=== PATIENT | male | born 1945 | race African-American/Black ===

== ENCOUNTER 2016-10-01 07:59 | Emergency (ER) | payer MEDICARE, MEDICAID ==
[~2016-10-01] VITALS: Ht 172.7 cm; Wt 74.8 kg
[2016-10-01] MEDS ORDERED: PredniSONE 20mg tab ORAL ONE (08:15)
[2016-10-01] MEDS ORDERED: Albuterol ud Inhalation HHN ONE (08:15)
[2016-10-01] MEDS ORDERED: Ipratropium 0.02% Inh Soln 2.5ml UD HHN ONE (08:15)
[2016-10-01] MEDS ORDERED: Aspirin Baby 81mg ORAL ONE (08:15)
--- NOTE | 2016-10-01 08:17 | Emergency Room Report ---
History of Present Illness General Chief Complaint: Dyspnea/Respdistress Source: Patient Present Illness HPI This patient states that he has a history of COPD. He states that his symptoms. Alert a COPD exacerbation. The patient states that he woke up this morning and was feeling short of breath. He states that his symptoms are worse when with exertion. He states that he did take 2 of his home albuterol breathing treatments by nebulizer. He also takes Spiriva. He states that he went to the methadone clinic this morning and when he returned home he felt increasing shortness of breath. He denies recent illness. He denies cough or congestion. He denies fever chills. He denies nausea or vomiting. He states that he is occasionally gets some chest pain. He denies tobacco use. He does have a [id number] history. However, he stopped smoking in 2010. He does have a history of heroin abuse. He has no other complaints. Allergies: Coded Allergies: No Known Allergies (Unverified , 10/01/16) Patient History Past Medical History: see triage record, HTN, COPD, other - glaucoma Past Surgical History: other - Hip replacement Social History: Reports: alcohol use, drug use, Denies: smoking Reviewed Nursing Documentation: PMH: Agreed, PSxH: Agreed Nursing Documentation-PMH Hx Hypertension: Yes Hx COPD: Yes Review of Systems All Other Systems: negative except mentioned in HPI Physical Exam Vital Signs Date Time Temp Pulse Resp B/P Pulse Ox O2 Delivery O2 Flow Rate FiO2 10/01/16 07:53 88 24 142/76 98 Room Air Sp02 EP Interpretation: reviewed, normal General Appearance: no apparent distress, alert, GCS 15, non-toxic Head: normocephalic, atraumatic Eyes: bilateral eye PERRL, bilateral eye normal inspection ENT: hearing grossly normal, normal pharynx, no angioedema, normal voice Neck: full range of motion, supple/symm/no masses Respiratory: chest non-tender, lungs clear, normal breath sounds, no rhonchi, no respiratory distress, no retraction, no accessory muscle use, decreased breath sounds, speaking full sentences Cardiovascular #1: regular rate, rhythm, no edema Gastrointestinal: normal bowel sounds, non tender, soft, non-distended, no guarding, no rebound Rectal: deferred Musculoskeletal: back normal, gait/station normal, normal range of motion, non- tender Neurologic: alert, oriented x3, responsive, motor strength/tone normal, sensory intact, speech normal Psychiatric: judgement/insight normal, memory normal, mood/affect normal, no suicidal/homicidal ideation Skin: normal color, no rash, warm/dry, well hydrated Medical Decision Making Diagnostic Impression: Primary Impression: COPD exacerbation ER Course This patient has a clinical presentation consistent with COPD exacerbation. Patient has a history of COPD. The patient was given albuterol and Atrovent nebulizer treatments. The patient was also given prednisone orally. The patient had significant improvement in subjective shortness of breath. The patient was comfortable going home. The patient's laboratory workup to include CBC, CMP and cardiac enzymes were unremarkable. Chest x-ray was within normal limits. Given the length of symptoms and a negative workup in the resolution of symptoms with the respiratory treatment, at this time I do not suspect acute coronary syndrome. The patient states that he does need more albuterol for his nebulizer machine. The patient was given close return precautions and followup instructions. Labs Test 10/01/16 08:15 White Blood Count 12.0 K/UL (4.8-10.8) Red Blood Count 5.52 M/UL (4.70-6.10) Hemoglobin 14.6 G/DL (14.2-18.0) Hematocrit 45.1 % (42.0-52.0) Mean Corpuscular Volume 82 FL (80-99) Mean Corpuscular Hemoglobin 26.4 PG (27.0-31.0) Mean Corpuscular Hemoglobin Concent 32.4 G/DL (32.0-36.0) Red Cell Distribution Width 13.6 % (11.6-14.8) Platelet Count 230 K/UL (150-450) Mean Platelet Volume 7.8 FL (6.5-10.1) Neutrophils (%) (Auto) 78.8 % (45.0-75.0) Lymphocytes (%) (Auto) 11.5 % (20.0-45.0) Monocytes (%) (Auto) 8.1 % (1.0-10.0) Eosinophils (%) (Auto) 0.7 % (0.0-3.0) Basophils (%) (Auto) 0.9 % (0.0-2.0) Prothrombin Time 10.9 SEC (9.30-11.50) Prothromb Time International Ratio 1.0 (0.9-1.1) Activated Partial Thromboplast Time 27 SEC (23-33) Urine Color Pale yellow Urine Appearance Clear Urine pH 7 (4.5-8.0) Urine Specific [place] 1.005 (1.005-1.035) Urine Protein Negative (NEGATIVE) Urine Glucose (UA) Negative (NEGATIVE) Urine Ketones Negative (NEGATIVE) Urine Occult Blood Negative (NEGATIVE) Urine Nitrite Negative (NEGATIVE) Urine Bilirubin Negative (NEGATIVE) Urine Urobilinogen Normal MG/DL (0.0-1.0) Urine Leukocyte Esterase Negative (NEGATIVE) Sodium Level 134 mEQ/L (135-145) Potassium Level 4.1 mEQ/L (3.4-4.9) Chloride Level 94 mEQ/L (98-107) Carbon Dioxide Level 29 mEQ/L (20-30) Anion Gap 11 (5-15) Blood Urea Nitrogen 9 mg/dL (7-23) Creatinine 0.8 mg/dL (0.7-1.2) Estimat Glomerular Filtration Rate > 60 mL/min (>60) Glucose Level 127 mg/dL (74-106) Calcium Level 9.4 mg/dL (8.6-10.2) Total Bilirubin 0.5 mg/dL (0.0-1.2) Aspartate Amino Transf (AST/SGOT) 17 U/L (5-40) Alanine Aminotransferase (ALT/SGPT) 9 U/L (3-41) Alkaline Phosphatase 68 U/L (40-129) Total Creatine Kinase 96 U/L (38-174) Creatine Kinase MB 1.5 ng/mL (< 6.7) Creatine Kinase MB Relative Index 1.5 Troponin I < 0.30 ng/mL (<=0.30) Pro-B-Type Natriuretic Peptide 65 pg/mL (0-125) Total Protein 7.4 g/dL (6.6-8.7) Albumin 3.9 g/dL (3.5-5.2) Globulin 3.5 g/dL Albumin/Globulin Ratio 1.1 (1.0-2.7) Urine Opiates Screen Positive (NEGATIVE) Urine Barbiturates Screen Negative (NEGATIVE) Phencyclidine (PCP) Screen Negative (NEGATIVE) Urine Amphetamines Screen Negative (NEGATIVE) Urine Benzodiazepines Screen Negative (NEGATIVE) Urine Cocaine Screen Negative (NEGATIVE) Urine Marijuana (THC) Screen Negative (NEGATIVE) EKG Diagnostic Results Rate: normal Rhythm: NSR ST Segments: no acute changes Other Impression Q waves in V1, V2 Rhythm Strip Diag. Results EP Interpretation: yes Rate: 70's Rhythm: NSR, no PVC's, no ectopy Chest X-Ray Diagnostic Results EP Interpretation: Yes Findings: no consolidation, no effusion, no pneumothorax, no acute cardiopulmonary disease Number of Views: 1 Last Vital Signs Date Time Temp Pulse Resp B/P Pulse Ox O2 Delivery O2 Flow Rate FiO2 10/01/16 07:53 88 24 142/76 98 Room Air Status: improved Disposition: HOME, SELF-CARE Condition: Improved Scripts Albuterol Sulfate* (ALBUTEROL SULFATE HHN*) 2.5 Mg/3 Ml Vial.neb 2.5 MG HHN Q4H Y for Shortness of Breath, #25 VIAL Prov: SAMPSON THOMPSON D.O. 10/01/16 Prednisone* (PREDNISONE*) 20 Mg Tablet 60 MG ORAL DAILY, #12 TAB Prov: SAMPSON THOMPSON D.O. 10/01/16 Patient Instructions: Chronic Obstructive Pulmonary Disease Exacerbation SAMPSON THOMPSON D.O. Oct 01, 2016 08:17
[2016-10-01 08:26] VITALS: BP 131/70
[2016-10-01 08:36] LABS: APPEARANCE,URINE CLEAR; KETONES,URINE NEGATIVE (NEGATIVE); LEUKOCYTE ESTERASE ,URINE NEGATIVE (NEGATIVE); NITRITE,URINE NEGATIVE (NEGATIVE); PH,URINE 7 (4.5-8.0); PROTEIN,URINE NEGATIVE (NEGATIVE); UROBILINOGEN,URINE NORMAL MG/DL (0.0-1.0)
[2016-10-01 08:41] LABS: BASOPHILS % (AUTO) 0.9 % (0.0-2.0); EOSINOPHILS % (AUTO) 0.7 % (0.0-3.0); LYMPHOCYTES % (AUTO) 11.5 % (20.0-45.0); MEAN CORPUSCULAR HEMOGLOBIN 26.4 PG (27.0-31.0); MEAN CORPUSCULAR HGB CONC 32.4 G/DL (32.0-36.0); MEAN CORPUSCULAR VOLUME 82 FL (80-99); MEAN PLATELET VOLUME 7.8 FL (6.5-10.1); MONOCYTES % (AUTO) 8.1 % (1.0-10.0); NEUTROPHILS % (AUTO) 78.8 % (45.0-75.0); PLATELET COUNT 230 K/UL (150-450); RED BLOOD COUNT 5.52 M/UL (4.70-6.10); RED CELL DISTRIBUTION WIDTH 13.6 % (11.6-14.8)
[2016-10-01 08:49] LABS: PROTHROMBIN TIME 10.9 SEC (9.30-11.50)
[2016-10-01 08:50] LABS: ALANINE AMINOTRANSFERASE 9 U/L (3-41); ALBUMIN/GLOBULIN RATIO 1.1 (1.0-2.7); ANION GAP 11 (5-15); ASPARTATE AMINO TRANSFERASE 17 U/L (5-40); CALCIUM 9.4 mg/dL (8.6-10.2); CARBON DIOXIDE 29 mEQ/L (20-30); CHLORIDE 94 mEQ/L (98-107); CREATININE 0.8 mg/dL (0.7-1.2); GLOMERULAR FILTRATION RATE > 60 mL/min (>60); HEMOLYSIS 6; POTASSIUM 4.1 mEQ/L (3.4-4.9); SODIUM 134 mEQ/L (135-145); TOTAL PROTEIN 7.4 g/dL (6.6-8.7); TROPONIN I < 0.30 ng/mL (<=0.30)
--- NOTE | 2016-10-01 08:55 | Diagnostic Imaging Report ---
Indication: SOB Technique: One view of the chest Comparison: 05/02/2007 Findings: Lungs and pleural spaces are clear. Heart size is normal. Aorta is tortuous. No significant change Impression: No acute process
[2016-10-01 09:00] LABS: CKMB 1.5 ng/mL (< 6.7)
[2016-10-01] MEDS ORDERED: ALBUTEROL2.5 MG/3 M HHN (10:23)
[2016-10-01] MEDS ORDERED: PREDNISONE20 MG ORAL (10:23)
[2016-10-01 11:05] VITALS: BP 133/78
[2016-10-01 13:06] VITALS: BP 134/71
== END 2016-10-01 13:12 | disposition home or self-care (01) ==
LOC: EDBD 07:59 → EMR 08:10
DX: J44.1 Chronic obstructive pulmonary disease with (acute) exacerbation (principal); I10 Essential (primary) hypertension; F10.20 Alcohol dependence, uncomplicated; F19.90 Other psychoactive substance use, unspecified, uncomplicated; Z87.891 Personal history of nicotine dependence; Z96.649 Presence of unspecified artificial hip joint
CPT/HCPCS: 36415; 71010; 80053; 80300; 81003; 82550; 82553; 83880; 84484; 85025; 85610; 85730; 93005; 94640; 94664; 99284

== ENCOUNTER 2017-06-05 13:46 | Inpatient (IN) | payer MEDICAID, MEDICARE ==
[~2017-06-05] VITALS: Ht 172.7 cm; Wt 79.4 kg
[~2017-06-05 13:46] MED LIST: ALBUTEROL2.5 MG/3 M HHN; PREDNISONE20 MG ORAL
--- NOTE | 2017-06-05 13:50 | Emergency Room Report ---
History of Present Illness Present Illness HPI Patient is a 71-year-old male brought in by EMS after increased generalized weakness. Patient did have alteration of his mental status. Patient was noted a prior history of COPD as well as drug abuse. He was noted to be on home oxygen. 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 Patient was noted to have a known medications and allergies.History is obtained from EMS and patient's sister. Reportedly the patient had been sick for several days with increased difficulty breathing. 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 ENT: dry mucus membranes Neck: full range of motion, supple Respiratory: no retraction, no accessory muscle use, wheezing Cardiovascular #1: tachycardia Gastrointestinal: distended, tenderness - mild Musculoskeletal: normal inspection, back normal Neurologic: normal inspection, alert, oriented x3, responsive, speech normal, motor weakness Skin: normal inspection, normal color, no rash, warm/dry Medical Decision Making Diagnostic Impression: Primary Impression: Episode of generalized weakness Additional Impressions: COPD with exacerbation Hypercarbia Dehydration ER Course Patient presented for altered mental status. Differential diagnosis included but was not limited to ischemic stroke, subarachnoid hemorrhage, hypoglycemia, spinal cord injury, neurodegenerative disorder, urinary tract infection, hypoxemia.Patient was noted to have some improvement in his mental status spontaneously. The patient was given prednisone as well as breathing treatments with some improvement. ABG was noted to have some CO2 retention consistent with COPD exacerbation.Patient started on IV fluids. CT the head read by radiology showed no acute hemorrhage or CVA. A CT abdomen pelvis was performed due to patient's abdominal distention. Dr. Kc was contacted for inpatient management due to complexity of medical condition. Labs Test 06/05/17 13:51 06/05/17 15:24 Arterial Blood pH 7.294 (7.350-7.450) Arterial Blood Partial Pressure CO2 59.9 mmHg (35.0-45.0) Arterial Blood Partial Pressure O2 76.7 mmHg (75.0-100.0) Arterial Blood HCO3 28.4 mmol/L (22.0-26.0) Arterial Blood Oxygen Saturation 93.8 % (92.0-98.0) Arterial Blood Base Excess 0.5 Christopher Test Positive White Blood Count 14.1 K/UL (4.8-10.8) Red Blood Count 5.47 M/UL (4.70-6.10) Hemoglobin 14.8 G/DL (14.2-18.0) Hematocrit 44.2 % (42.0-52.0) Mean Corpuscular Volume 81 FL (80-99) Mean Corpuscular Hemoglobin 27.1 PG (27.0-31.0) Mean Corpuscular Hemoglobin Concent 33.5 G/DL (32.0-36.0) Red Cell Distribution Width 13.4 % (11.6-14.8) Platelet Count 326 K/UL (150-450) Mean Platelet Volume 6.9 FL (6.5-10.1) Neutrophils (%) (Auto) 75.1 % (45.0-75.0) Lymphocytes (%) (Auto) 12.0 % (20.0-45.0) Monocytes (%) (Auto) 7.8 % (1.0-10.0) Eosinophils (%) (Auto) 3.7 % (0.0-3.0) Basophils (%) (Auto) 1.4 % (0.0-2.0) Prothrombin Time 10.9 SEC (9.30-11.50) Prothromb Time International Ratio 1.0 (0.9-1.1) Activated Partial Thromboplast Time 27 SEC (23-33) Sodium Level 137 MMOL/L (136-145) Potassium Level 4.8 MMOL/L (3.5-5.1) Chloride Level 96 MMOL/L (98-107) Carbon Dioxide Level 33 MMOL/L (21-32) Anion Gap 8 mmol/L (5-15) Blood Urea Nitrogen 6 mg/dL (7-18) Creatinine 1.3 MG/DL (0.55-1.30) Estimat Glomerular Filtration Rate > 60 mL/min (>60) Glucose Level 113 MG/DL (74-106) Lactic Acid Level 1.90 mmol/L (0.66-2.22) Calcium Level 9.4 MG/DL (8.5-10.1) Phosphorus Level 4.2 MG/DL (2.5-4.9) Magnesium Level 2.0 MG/DL (1.8-2.4) Total Bilirubin 0.3 MG/DL (0.2-1.0) Aspartate Amino Transf (AST/SGOT) 23 U/L (15-37) Alanine Aminotransferase (ALT/SGPT) 20 U/L (12-78) Alkaline Phosphatase 75 U/L (46-116) Total Creatine Kinase 182 U/L (26-308) Creatine Kinase MB 1.5 NG/ML (0.0-3.6) Creatine Kinase MB Relative Index 0.8 Troponin I 0.000 ng/mL (0.000-0.056) Total Protein 8.7 G/DL (6.4-8.2) Albumin 4.0 G/DL (3.4-5.0) Globulin 4.7 g/dL Albumin/Globulin Ratio 0.9 (1.0-2.7) EKG Diagnostic Results Rate: tachycardiac - 122 Rhythm: NSR ST Segments: no acute changes CT/MRI/US Diagnostic Results CT/MRI/US Diagnostic Results : Imaging Test Ordered: Head Impression atrophic changes, no acute intracranial process. Disposition: HOME, SELF-CARE Condition: Stable Abraham Trimble Jun 05, 2017 13:50
[2017-06-05 14:31] VITALS: BP 119/88
[2017-06-05] MEDS ORDERED: Albuterol/Ipratropium 3ml neb HHN ONE (15:30)
[2017-06-05 15:37] LABS: BASOPHILS % (AUTO) 1.4 % (0.0-2.0); EOSINOPHILS % (AUTO) 3.7 % (0.0-3.0); HEMATOCRIT 44.2 % (42.0-52.0); HEMOGLOBIN 14.8 G/DL (14.2-18.0); MEAN CORPUSCULAR VOLUME 81 FL (80-99); MONOCYTES % (AUTO) 7.8 % (1.0-10.0); NEUTROPHILS % (AUTO) 75.1 % (45.0-75.0); PLATELET COUNT 326 K/UL (150-450); RED BLOOD COUNT 5.47 M/UL (4.70-6.10); RED CELL DISTRIBUTION WIDTH 13.4 % (11.6-14.8); WHITE BLOOD COUNT 14.1 K/UL (4.8-10.8)
[2017-06-05 15:48] VITALS: BP 149/128
[2017-06-05 16:04] LABS: ANION GAP 8 mmol/L (5-15); BLOOD UREA NITROGEN 6 mg/dL (7-18); CALCIUM 9.4 MG/DL (8.5-10.1); CARBON DIOXIDE 33 MMOL/L (21-32); CHLORIDE 96 MMOL/L (98-107); CREATININE 1.3 MG/DL (0.55-1.30); POTASSIUM 4.8 MMOL/L (3.5-5.1); SODIUM 137 MMOL/L (136-145)
[2017-06-05 16:17] LABS: ALANINE AMINOTRANSFERASE 20 U/L (12-78); ALBUMIN/GLOBULIN RATIO 0.9 (1.0-2.7); ALKALINE PHOSPHATASE 75 U/L (46-116); ASPARTATE AMINO TRANSFERASE 23 U/L (15-37); BILIRUBIN,TOTAL 0.3 MG/DL (0.2-1.0); CKMB 1.5 NG/ML (0.0-3.6); CREATINE KINASE 182 U/L (26-308); PHOSPHORUS 4.2 MG/DL (2.5-4.9)
[2017-06-05] MEDS ORDERED: ASPIRIN81 MG ORAL (16:33)
[2017-06-05] MEDS ORDERED: LISINOPRIL5 MG ORAL (16:33)
[2017-06-05] MEDS ORDERED: HYDROCHLOROTH12.5 M2 ORAL (16:33)
[2017-06-05 17:33] VITALS: BP 122/85
[2017-06-05] MEDS ORDERED: METHADONE HCL10 MG PO (17:34)
[2017-06-05] MEDS ORDERED: LATANOPROST1 GM MC (17:37)
[2017-06-05] MEDS ORDERED: SPIRIVA18 MCG INH (17:37)
[2017-06-05] MEDS ORDERED: SALMETEROL INH (17:37)
[2017-06-05] MEDS ORDERED: LATANOPROST2.5 ML BOTH EYES (17:58)
[2017-06-05] MEDS ORDERED: MULTIVITAMINS1 EAC2 ORAL (18:00)
[2017-06-05 18:15] VITALS: BP 124/80
[2017-06-05] MEDS ORDERED: Nitroglycerin Subl 0.4mg tab SL PRN (20:45)
[2017-06-05] MEDS ORDERED: Ketorolac 30mg Inj IV PRN (20:45)
[2017-06-05] MEDS ORDERED: Morphine Sulfate 2mg/ml Inj IVP PRN (20:45)
[2017-06-05] MEDS ORDERED: Albuterol/Ipratropium 3ml neb HHN PRN (20:45)
[2017-06-05] MEDS ORDERED: LORazepam Inj 2mg/ml 1ml IV PRN (20:45)
[2017-06-05] MEDS ORDERED: Promethazine/Codeine 5ml UD ORAL PRN (20:45)
[2017-06-05] MEDS: Piperacillin/Tazobactam 3.375 GM in NS 55 ML IVPB SCH (22:29)
[2017-06-05] MEDS: Theophylline ER 100mg ORAL SCH (22:29)
[2017-06-05] MEDS: Heparin 5000 units/ml inj SUBQ SCH (22:31)
[2017-06-06] VITALS (8 sets, daily range): BP systolic 102–139; BP diastolic 70–93
[2017-06-06] MEDS: Solu-MEDROL 125mg Inj IV SCH ×4 (06:00→17:31)
[2017-06-06] MEDS: Piperacillin/Tazobactam 3.375 GM in NS 55 ML IVPB SCH ×3 (06:33→21:30)
[2017-06-06] MEDS ORDERED: Lisinopril 2.5mg tab ORAL SCH (09:00)
--- NOTE | 2017-06-06 09:06 | Diagnostic Imaging Report ---
Indication: Abdominal pain Technique: Continuous helical transaxial imaging of the abdomen and pelvis was obtained from the lung bases to the pubic symphysis during intravenous contrast administration. Coronal 2-D reformats were also obtained. Study obtained in a Siemens sensation [address] Automatic Exposure Control was utilized. Total Dose length Product (DLP): 576.[address] Dose Index Volume (CTDIvol): 12.74 mGy Comparison: 05/02/2007 Findings: Question nodularity of the liver surface. The spleen is also slightly prominent. Pancreas gallbladder, adrenal glands and kidneys appear unremarkable. Moderate arterial calcifications are present. There is a right total hip arthroplasty noted. Degenerative changes of the lumbar spine are present. The appendix is normal. No free fluid or free air identified. The urinary bladder is unremarkable. There is narrowing of intervertebral discs and accompanying endplate osteophyte formation. Hypertrophied facet joints also demonstrated.. IMPRESSION: Nodularity of the liver surface. Chronic liver disease/cirrhosis suspected. Please correlate clinically. Prominent spleen. Degenerative changes of the spine Right total hip replacement Normal appendix Retroaortic left renal vein. A normal variant. [facility] has communicated the preliminary results to the Emergency Department. Their findings are largely concordant with this report. The CT scanner at [facility] is accredited by the [employer] and the scans are performed using dose optimization techniques as appropriate to a performed exam including Automatic Exposure control.
[2017-06-06] MEDS: Theophylline ER 100mg ORAL SCH ×2 (09:10→21:27)
[2017-06-06] MEDS: Heparin 5000 units/ml inj SUBQ SCH ×2 (09:11→21:29)
--- NOTE | 2017-06-06 09:45 | Diagnostic Imaging Report ---
Indication: Altered mental status Technique: Contiguous 5 mm thick transaxial imaging of the head obtained in a Siemens Sensation [address] scanner. Soft tissue and bone windows generated. Automatic Exposure Control was utilized. Total Dose length Product (DLP): [address] Dose Index Volume (CTDIvol): 0.15, 70.38 mGy Comparison: none Findings: There is mild prominence of the ventricles, basal cisterns, and cerebral sulci consistent with atrophy. Mild, nonspecific, white matter hypoattenuation is noted throughout the brain consistent with chronic small vessel disease. There is no midline shift, edema, acute hemorrhage, mass effect, or abnormal extra-axial fluid collections. Bones and extra osseous soft tissues are unremarkable. Impression: No acute intracranial bleed, mass effect or edema. Mild atrophy of the brain. Nonspecific white matter hypoattenuation probably due to chronic small vessel disease. [facility] has communicated the preliminary results to the Emergency Department. Their findings are largely concordant with this report. The CT scanner at [facility] is accredited by the [employer] and the scans are performed using dose optimization techniques as appropriate to a performed exam including Automatic Exposure control.
[2017-06-06] MEDS ORDERED: Tubing IV Secondary IV ONE (10:03)
--- NOTE | 2017-06-06 10:51 | Diagnostic Imaging Report ---
Indication: Dyspnea Comparison: 10/01/2016 A single view chest radiograph was obtained. Findings: Basilar lucencies noted. Lungs are slightly hyperexpanded. No infiltrate seen. Heart size is normal. IMPRESSION: COPD
--- NOTE | 2017-06-06 11:28 | History and Physical ---
History of Present Illness General Date patient seen: Jun 06, 2017 Reason for Hospitalization: Generalized Weakness Present Illness HPI 71-year-old male on Methadone, with hx of emphysema, on home oxygen.brought in by EMS after increased generalized weakness. Patient did have alteration of his mental status. Reportedly the patient had been sick for several days with increased difficulty breathing. Pt is admitted to telemetry for further evaluation. Allergies: Coded Allergies: No Known Allergies (Unverified , 10/01/16) Medication History Scheduled Aspirin* (Aspirin*), 81 MG ORAL DAILY, (Reported) Hydrochlorothiazide* (Hydrochlorothiazide*), 12.5 MG ORAL DAILY, (Reported) Latanoprost* (Xalatan*), 2 DROP BOTH EYES BEDTIME, (Reported) Lisinopril (Lisinopril*), 5 MG ORAL DAILY, (Reported) Methadone Hcl* (Methadone*), 80 MG PO DAILY, (Reported) Multivitamins* (Multivitamins*), 1 TAB ORAL DAILY, (Reported) Salmeterol Xinafoate (Serevent Diskus), 2 PUFFS INH NEEDED, (Reported) Tiotropium [place]* (Spiriva*), 1 PUFF INH DAILY, (Reported) Scheduled PRN Albuterol Sulfate* (Albuterol Sulfate Hhn*), 2.5 MG HHN Q4H PRN for Shortness of Breath Discontinued Medications Latanoprost (Latanoprost), 1 GM MC DAILY, (Reported) Discontinued Reason: Prescription changed Prednisone* (Prednisone*), 60 MG ORAL DAILY Discontinued Reason: Pt had allergic rxn Patient History Healthcare decision maker N Resuscitation status Full Code Advanced Directive on File No Past Medical/Surgical History Past Medical/Surgical History: (1) COPD (chronic obstructive pulmonary disease) Review of Systems Constitutional: Reports: no symptoms Physical Exam General Appearance: WD/WN Lines, tubes and drains: peripheral HEENT: normocephalic, atraumatic Neck: non-tender, supple Respiratory/Chest: chest wall non-tender, normal breath sounds, no respiratory distress Breasts: no masses Cardiovascular/Chest: normal peripheral pulses Abdomen: normal bowel sounds Genitourinary/Rectal: normal genital exam Extremities: normal range of motion, non-tender Skin Exam: cyanotic Neurologic: director talent management II-XII grossly normal Lymphatic: anterior cervical Last 24 Hour Vital Signs Date Time Temp Pulse Resp B/P (MAP) Pulse Ox O2 Delivery O2 Flow Rate FiO2 06/06/17 09:23 98 22 99 Nasal Cannula 2.0 28 06/06/17 09:14 101 24 98 Nasal Cannula 2.0 28 06/06/17 09:09 125/72 06/06/17 08:00 106 06/06/17 08:00 97.7 101 20 125/72 95 Nasal Cannula 2.0 06/06/17 06:35 98 20 96 Nasal Cannula 2.0 28 06/06/17 06:26 96 18 97 Nasal Cannula 2.0 28 06/06/17 06:26 Nasal Cannula 2.0 28 06/06/17 06:26 97 Nasal Cannula 2.0 28 06/06/17 04:00 101 06/06/17 04:00 98.2 101 14 124/83 100 Nasal Cannula 2.0 06/06/17 00:00 103 06/06/17 00:00 98.2 101 18 102/72 98 Nasal Cannula 2.0 06/05/17 23:33 94 Nasal Cannula 2.0 28 06/05/17 23:33 Nasal Cannula 2.0 28 06/05/17 23:31 108 20 95 Nasal Cannula 2.0 28 06/05/17 23:30 104 20 93 Nasal Cannula 2.0 28 06/05/17 20:00 107 06/05/17 18:15 97.2 116 16 124/80 95 Nasal Cannula 2.0 06/05/17 17:33 98.4 116 14 122/85 100 Nasal Cannula 2.0 06/05/17 15:54 125 14 100 Nasal Cannula 2.0 28 06/05/17 15:49 28 06/05/17 15:48 98.6 119 11 149/128 100 Simple Mask 2.0 28 06/05/17 15:43 121 11 98 Nasal Cannula 2.0 28 06/05/17 15:41 121 14 Nasal Cannula 2.0 28 06/05/17 14:31 98.6 112 12 119/88 99 Room Air 06/05/17 13:47 98.6 114 16 109/75 99 Room Air Intake and Output 06/05/17 06/06/17 19:00 07:00 Intake Total 300 ml Output Total 200 ml 400 ml Balance -200 ml -100 ml Intake Oral 300 ml Output Urine Total 200 ml 400 ml Laboratory Tests Test 06/05/17 13:51 06/05/17 15:24 Arterial Blood pH 7.294 (7.350-7.450) Arterial Blood Partial Pressure CO2 59.9 mmHg (35.0-45.0) *H Arterial Blood Partial Pressure O2 76.7 mmHg (75.0-100.0) Arterial Blood HCO3 28.4 mmol/L (22.0-26.0) H Arterial Blood Oxygen Saturation 93.8 % (92.0-98.0) Arterial Blood Base Excess 0.5 Christopher Test Positive White Blood Count 14.1 K/UL (4.8-10.8) H Red Blood Count 5.47 M/UL (4.70-6.10) Hemoglobin 14.8 G/DL (14.2-18.0) Hematocrit 44.2 % (42.0-52.0) Mean Corpuscular Volume 81 FL (80-99) Mean Corpuscular Hemoglobin 27.1 PG (27.0-31.0) Mean Corpuscular Hemoglobin Concent 33.5 G/DL (32.0-36.0) Red Cell Distribution Width 13.4 % (11.6-14.8) Platelet Count 326 K/UL (150-450) Mean Platelet Volume 6.9 FL (6.5-10.1) Neutrophils (%) (Auto) 75.1 % (45.0-75.0) H Lymphocytes (%) (Auto) 12.0 % (20.0-45.0) L Monocytes (%) (Auto) 7.8 % (1.0-10.0) Eosinophils (%) (Auto) 3.7 % (0.0-3.0) H Basophils (%) (Auto) 1.4 % (0.0-2.0) Prothrombin Time 10.9 SEC (9.30-11.50) Prothromb Time International Ratio 1.0 (0.9-1.1) Activated Partial Thromboplast Time 27 SEC (23-33) Sodium Level 137 MMOL/L (136-145) Potassium Level 4.8 MMOL/L (3.5-5.1) Chloride Level 96 MMOL/L (98-107) L Carbon Dioxide Level 33 MMOL/L (21-32) H Anion Gap 8 mmol/L (5-15) Blood Urea Nitrogen 6 mg/dL (7-18) L Creatinine 1.3 MG/DL (0.55-1.30) Estimat Glomerular Filtration Rate > 60 mL/min (>60) Glucose Level 113 MG/DL (74-106) H Lactic Acid Level 1.90 mmol/L (0.66-2.22) Calcium Level 9.4 MG/DL (8.5-10.1) Phosphorus Level 4.2 MG/DL (2.5-4.9) Magnesium Level 2.0 MG/DL (1.8-2.4) Total Bilirubin 0.3 MG/DL (0.2-1.0) Aspartate Amino Transf (AST/SGOT) 23 U/L (15-37) Alanine Aminotransferase (ALT/SGPT) 20 U/L (12-78) Alkaline Phosphatase 75 U/L (46-116) Total Creatine Kinase 182 U/L (26-308) Creatine Kinase MB 1.5 NG/ML (0.0-3.6) Creatine Kinase MB Relative Index 0.8 Troponin I 0.000 ng/mL (0.000-0.056) Total Protein 8.7 G/DL (6.4-8.2) H Albumin 4.0 G/DL (3.4-5.0) Globulin 4.7 g/dL Albumin/Globulin Ratio 0.9 (1.0-2.7) L Microbiology Date/Time Source Procedure Growth Status 06/05/17 14:30 Nasal Nares Influenza Types A,B Antigen (CHARLEEN) - Final Complete Height (Feet): 5 Height (Inches): 8.00 Weight (Pounds): 175 Medications Current Medications Medications (Trade) Dose Ordered Sig/Thom Route PRN Reason Start Time Stop Time Status Last Admin Dose Admin Albuterol/ Ipratropium (Albuterol/ Ipratropium) 3 ml Q4H PRN HHN dyspnea 06/05/17 20:45 06/10/17 20:44 06/06/17 09:14 Dextrose (Dextrose 50%) STAT PRN IV Hypoglycemia 06/05/17 20:45 07/05/17 20:44 Heparin Sodium (Porcine) (Heparin 5000 units/ml) 5,000 units EVERY 12 HOURS SUBQ 06/05/17 21:00 07/05/17 20:59 06/06/17 09:11 Ketorolac Tromethamine (Toradol 30mg) 30 mg Q8H PRN IV moderate pain 4-6 06/05/17 20:45 06/10/17 20:44 Lisinopril (Zestril) 5 mg DAILY ORAL 06/06/17 09:00 07/06/17 08:59 06/06/17 09:09 Lorazepam (Ativan 2mg/ml 1ml) 0.5 mg Q4H PRN IV For Anxiety 06/05/17 20:45 06/12/17 20:44 Methadone HCl (Methadone HCl) 80 mg DAILY ORAL 06/06/17 12:00 06/13/17 11:59 06/06/17 11:08 Methylprednisolone Sodium Succinate (Solu-MEDROL) 60 mg EVERY 6 HOURS IV 06/06/17 00:00 07/06/17 00:00 06/06/17 11:08 Morphine Sulfate (Morphine Sulfate) 2 mg Q4H PRN IVP severe pain 7-10 06/05/17 20:45 06/12/17 20:44 06/05/17 22:38 Nitroglycerin (Ntg) 0.4 mg Q5M X 3 DOSES PRN SL Prn Chest Pain 06/05/17 20:45 07/05/17 20:44 Ondansetron HCl (Zofran) 4 mg Q6H PRN IVP Nausea & Vomiting 06/05/17 20:45 07/05/17 20:44 Piperacillin Sod/ Tazobactam Sod 3.375 gm/Sodium Chloride 55 ml @ 13.75 mls/ hr EVERY 8 HOURS IVPB 06/05/17 22:00 06/12/17 21:59 06/06/17 06:33 Promethazine HCl/ Codeine (Phenergan with Codeine) 5 ml Q6H PRN ORAL cough 06/05/17 20:45 07/05/17 20:44 Temazepam (Restoril) 15 mg HSPRN PRN ORAL Insomnia 06/05/17 20:45 06/12/17 20:44 Theophylline ([place]) 100 mg EVERY 12 HOURS ORAL 06/05/17 21:00 07/05/17 20:59 06/06/17 09:10 Assessment/Plan Problem List: (1) Dehydration ICD Codes: E86.0 - Dehydration SNOMED: 81333432 (2) Hypercarbia ICD Codes: R06.89 - Other abnormalities of breathing SNOMED: 76221141 (3) Episode of generalized weakness ICD Codes: R53.1 - Weakness SNOMED: 73593207 (4) COPD with exacerbation ICD Codes: J44.1 - Chronic obstructive pulmonary disease with (acute) exacerbation SNOMED: 474300004 Assessment/Plan respiratory treatment I V steorids IV abx check sputum check cultures. MILO BENITEZ Jun 06, 2017 11:27
--- NOTE | 2017-06-06 19:32 | Cardiology Report ---
APPROVED REPORT EKG Measurement Heart [id number] Sinus tachycardia Otherwise normal ECG
[2017-06-06] MEDS: Latanoprost 0.005% Opth 2.5ml Soln BOTH EYES SCH (21:25)
[2017-06-06] MEDS ORDERED: Nitroglycerin Subl 0.4mg tab SL PRN (22:15)
[2017-06-06] MEDS ORDERED: LORazepam Inj 2mg/ml 1ml IV PRN (22:29)
[2017-06-07] VITALS: BP 120/84
[2017-06-07] MEDS: Solu-MEDROL 125mg Inj IV SCH ×3 (00:21→12:08)
[2017-06-07] MEDS ORDERED: Morphine Sulfate 2mg/ml Inj IVP PRN (00:45)
[2017-06-07] MEDS ORDERED: Promethazine/Codeine 5ml UD ORAL PRN (02:45)
[2017-06-07 04:00] VITALS: BP 132/74
[2017-06-07] MEDS: Piperacillin/Tazobactam 3.375 GM in NS 55 ML IVPB SCH ×4 (05:41→20:48)
[2017-06-07 07:24] LABS: HEMATOCRIT 40.6 % (42.0-52.0); HEMOGLOBIN 13.4 G/DL (14.2-18.0); MEAN CORPUSCULAR VOLUME 82 FL (80-99); PLATELET COUNT 270 K/UL (150-450); RED BLOOD COUNT 4.95 M/UL (4.70-6.10); RED CELL DISTRIBUTION WIDTH 13.7 % (11.6-14.8); WHITE BLOOD COUNT 18.2 K/UL (4.8-10.8)
[2017-06-07 07:39] LABS: ALANINE AMINOTRANSFERASE 21 U/L (12-78); ALBUMIN 3.1 G/DL (3.4-5.0); ALBUMIN/GLOBULIN RATIO 0.7 (1.0-2.7); ALKALINE PHOSPHATASE 63 U/L (46-116); ANION GAP 6 mmol/L (5-15); ASPARTATE AMINO TRANSFERASE 18 U/L (15-37); BILIRUBIN,TOTAL 0.1 MG/DL (0.2-1.0); BLOOD UREA NITROGEN 17 mg/dL (7-18); CALCIUM 9.4 MG/DL (8.5-10.1); CARBON DIOXIDE 31 MMOL/L (21-32); CHLORIDE 102 MMOL/L (98-107); POTASSIUM 4.7 MMOL/L (3.5-5.1); SODIUM 138 MMOL/L (136-145)
[2017-06-07] MEDS: Albuterol/Ipratropium 3ml neb HHN PRN (08:09)
[2017-06-07 08:15] VITALS: BP 154/90
[2017-06-07] MEDS: Theophylline ER 100mg ORAL SCH ×2 (08:58→20:46)
[2017-06-07] MEDS: Lisinopril 2.5mg tab ORAL SCH (08:58)
[2017-06-07] MEDS: Heparin 5000 units/ml inj SUBQ SCH ×2 (09:00→20:48)
[2017-06-07] MEDS ORDERED: Tubing IV Secondary IV ONE (11:25)
[2017-06-07] MEDS ORDERED: NS 500ML ONE (11:25)
[2017-06-07 12:05] VITALS: BP 135/87
--- NOTE | 2017-06-07 12:56 | Pulmonology Progress Note ---
Assessment/Plan Problems: (1) Dehydration (2) Hypercarbia (3) Episode of generalized weakness (4) COPD with exacerbation Assessment/Plan decrease steroids check sputum titrate fio2 to sat of 02 check electrolytes Subjective ROS Limited/Unobtainable: No Interval Events: still short of breath Allergies: Coded Allergies: No Known Allergies (Unverified , 10/01/16) Objective Last 24 Hour Vital Signs Date Time Temp Pulse Resp B/P (MAP) Pulse Ox O2 Delivery O2 Flow Rate FiO2 06/07/17 12:05 98.6 90 21 135/87 96 Nasal Cannula 2.0 06/07/17 08:58 154/90 06/07/17 08:20 99 20 97 Nasal Cannula 2.0 28 06/07/17 08:15 98.0 56 22 154/90 97 Room Air 06/07/17 08:10 98 Nasal Cannula 2.0 28 06/07/17 08:10 104 18 98 Nasal Cannula 2.0 28 06/07/17 08:10 Nasal Cannula 2.0 28 06/07/17 04:00 97.4 96 20 132/74 98 06/07/17 04:00 98 Nasal Cannula 2.0 06/07/17 00:00 98.6 98 21 120/84 100 06/07/17 00:00 100 Nasal Cannula 2.0 06/06/17 23:48 101 24 96 Nasal Cannula 2.0 28 06/06/17 23:46 101 20 96 Nasal Cannula 2.0 28 06/06/17 22:39 95 Nasal Cannula 2.0 06/06/17 22:39 98.7 94 20 130/79 95 06/06/17 20:00 96.6 107 20 139/80 94 Nasal Cannula 2.0 06/06/17 20:00 107 06/06/17 19:22 Nasal Cannula 2.0 28 06/06/17 19:22 96 Nasal Cannula 2.0 28 06/06/17 16:00 97.7 105 26 128/93 96 Nasal Cannula 2.0 06/06/17 16:00 105 06/06/17 14:27 105 24 96 Nasal Cannula 2.0 28 06/06/17 14:18 107 20 96 Nasal Cannula 2.0 28 Intake and Output 06/06/17 06/07/17 19:00 07:00 Intake Total 285.00 ml Output Total 400 ml 750 ml Balance -115.00 ml -750 ml Intake Oral 230 ml IV Total 55.00 ml Output Urine Total 400 ml 750 ml # Voids 1 3 # Bowel Movements 1 Objective Lines, tubes and drains: peripheral HEENT: normocephalic, atraumatic Neck: non-tender, supple Respiratory/Chest: chest wall non-tender,decreased breath sounds, no respiratory distress, +rhonchi Breasts: no masses Cardiovascular/Chest: normal peripheral pulses Abdomen: normal bowel sounds Genitourinary/Rectal: normal genital exam Extremities: normal range of motion, non-tender Skin Exam: cyanotic 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 HEENT: normocephalic, atraumatic Respiratory/Chest: chest wall non-tender, lungs clear Cardiovascular: normal peripheral pulses, normal rate Abdomen: normal bowel sounds, soft, non tender Genitourinary: normal external genitalia Extremities: no cyanosis Skin: no rash 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 Resulted 06/05/17 14:30 Nasal Nares Influenza Types A,B Antigen (CHARLEEN) - Final Complete Laboratory Tests 06/07/17 06:40: White Blood Count 18.2H, Red Blood Count 4.95, Hemoglobin 13.4L, Hematocrit 40.6L, Mean Corpuscular Volume 82, Mean Corpuscular Hemoglobin 27.1, Mean Corpuscular Hemoglobin Concent 33.0, Red Cell Distribution Width 13.7, Platelet Count 270, Mean Platelet Volume 7.3, Neutrophils (%) (Auto) , Lymphocytes (%) ( Auto) , Monocytes (%) (Auto) , Eosinophils (%) (Auto) , Basophils (%) (Auto) , Differential Total Cells Counted 100, Neutrophils % (Manual) 89H, Lymphocytes % (Manual) 8L, Monocytes % (Manual) 3, Eosinophils % (Manual) 0, Basophils % ( Manual) 0, Band Neutrophils 0, Platelet Estimate Adequate, Platelet Morphology Normal, Red Blood Cell Morphology Normal, Sodium Level 138, Potassium Level 4.7 , Chloride Level 102, Carbon Dioxide Level 31, Anion Gap 6, Blood Urea Nitrogen 17, Creatinine 1.0, Estimat Glomerular Filtration Rate > 60, Glucose Level 151H , Calcium Level 9.4, Phosphorus Level 3.0, Magnesium Level 2.0, Total Bilirubin 0.1L, Aspartate Amino Transf (AST/SGOT) 18, Alanine Aminotransferase (ALT/SGPT) 21, Alkaline Phosphatase 63, Total Protein 7.7, Albumin 3.1L, Globulin 4.6, Albumin/Globulin Ratio 0.7L Current Medications Medications (Trade) Dose Ordered Sig/Thom Route PRN Reason Start Time Stop Time Status Last Admin Dose Admin Albuterol/ Ipratropium (Albuterol/ Ipratropium) 3 ml Q4H PRN HHN dyspnea 06/06/17 22:26 06/11/17 22:25 06/07/17 08:09 Dextrose (Dextrose 50%) STAT PRN IV Hypoglycemia 06/06/17 22:25 07/06/17 22:24 Heparin Sodium (Porcine) (Heparin 5000 units/ml) 5,000 units EVERY 12 HOURS SUBQ 06/07/17 09:00 07/05/17 20:59 06/07/17 09:00 Latanoprost (Xalatan) 2 drop BEDTIME BOTH EYES 06/07/17 21:00 07/06/17 20:59 Lisinopril (Zestril) 5 mg DAILY ORAL 06/07/17 09:00 07/06/17 08:59 06/07/17 08:58 Lorazepam (Ativan 2mg/ml 1ml) 0.5 mg Q4H PRN IV For Anxiety 06/06/17 22:29 06/13/17 22:28 Methadone HCl (Methadone HCl) 80 mg DAILY ORAL 06/07/17 09:00 06/13/17 11:59 06/07/17 08:59 Methylprednisolone Sodium Succinate (Solu-MEDROL) 60 mg DAILY IV 06/08/17 09:00 07/06/17 00:00 UNV Morphine Sulfate (Morphine Sulfate) 2 mg Q4H PRN IVP severe pain 7-10 06/07/17 00:45 06/12/17 20:44 06/07/17 00:21 Nitroglycerin (Ntg) 0.4 mg Q5M X 3 DOSES PRN SL Prn Chest Pain 06/06/17 22:15 07/05/17 20:44 Ondansetron HCl (Zofran) 4 mg Q6H PRN IVP Nausea & Vomiting 06/07/17 02:45 07/05/17 20:44 Piperacillin Sod/ Tazobactam Sod 3.375 gm/Sodium Chloride 55 ml @ 13.75 mls/ hr EVERY 8 HOURS IVPB 06/07/17 06:00 06/12/17 21:59 06/07/17 05:42 Promethazine HCl/ Codeine (Phenergan with Codeine) 5 ml Q6H PRN ORAL cough 06/07/17 02:45 07/05/17 20:44 Temazepam (Restoril) 15 mg HSPRN PRN ORAL Insomnia 06/07/17 20:45 06/12/17 20:44 Theophylline ([place]-Dur) 100 mg EVERY 12 HOURS ORAL 06/07/17 09:00 07/05/17 20:59 06/07/17 08:58 MILO BENITEZ Jun 07, 2017 12:56
[2017-06-07 16:00] VITALS: BP 104/61
[2017-06-07 20:00] VITALS: BP 141/91
[2017-06-07] MEDS: Latanoprost 0.005% Opth 2.5ml Soln BOTH EYES SCH (20:46)
[2017-06-07] MEDS ORDERED: Latanoprost 0.005% Opth 2.5ml Soln BOTH EYES SCH (21:00)
[2017-06-08] VITALS: BP 142/89
[2017-06-08 04:00] VITALS: BP 146/89
[2017-06-08] MEDS: Piperacillin/Tazobactam 3.375 GM in NS 55 ML IVPB SCH ×2 (05:43→13:52)
[2017-06-08 07:42] LABS: ANION GAP 4 mmol/L (5-15); BLOOD UREA NITROGEN 15 mg/dL (7-18); CARBON DIOXIDE 32 MMOL/L (21-32); CHLORIDE 102 MMOL/L (98-107); POTASSIUM 3.7 MMOL/L (3.5-5.1); SODIUM 138 MMOL/L (136-145)
[2017-06-08 07:43] LABS: ALANINE AMINOTRANSFERASE 27 U/L (12-78); ALBUMIN 3.1 G/DL (3.4-5.0); ALBUMIN/GLOBULIN RATIO 0.7 (1.0-2.7); ALKALINE PHOSPHATASE 53 U/L (46-116); ASPARTATE AMINO TRANSFERASE 25 U/L (15-37); BILIRUBIN,TOTAL 0.2 MG/DL (0.2-1.0); CALCIUM 9.1 MG/DL (8.5-10.1); PHOSPHORUS 2.2 MG/DL (2.5-4.9)
[2017-06-08 08:07] LABS: WHITE BLOOD COUNT 19.5 K/UL (4.8-10.8)
[2017-06-08 08:08] LABS: HEMATOCRIT 42.3 % (42.0-52.0); HEMOGLOBIN 13.9 G/DL (14.2-18.0); MEAN CORPUSCULAR VOLUME 82 FL (80-99); PLATELET COUNT 271 K/UL (150-450); RED BLOOD COUNT 5.17 M/UL (4.70-6.10); RED CELL DISTRIBUTION WIDTH 13.4 % (11.6-14.8)
[2017-06-08 08:16] VITALS: BP 138/88
[2017-06-08] MEDS: Theophylline ER 100mg ORAL SCH (08:46)
[2017-06-08] MEDS: Lisinopril 2.5mg tab ORAL SCH (08:47)
[2017-06-08] MEDS: Heparin 5000 units/ml inj SUBQ SCH (08:50)
[2017-06-08] MEDS ORDERED: Solu-MEDROL 125mg Inj IV SCH (09:00)
[2017-06-08] MEDS: Albuterol/Ipratropium 3ml neb HHN PRN ×2 (09:14→15:38)
[2017-06-08 10:49] LABS: AMYLASE 40 U/L (25-115)
[2017-06-08 11:21] VITALS: BP 135/89
--- NOTE | 2017-06-08 12:13 | GI Initial Consult Note ---
Mosqueda,Reny Zachariah NVeadPVead 06/08/17 1213: History of Present Illness General Date patient seen: Jun 08, 2017 Time patient seen: 12:07 Reason for Hospitalization: Generalized Weakness Referring physician: MILO ROUSE Reason for Consultation: VOMITING Present Illness HPI Patient is a 71-year-old male brought in by EMS after increased generalized weakness. Patient did have alteration of his mental status. Patient was noted a prior history of COPD as well as drug abuse. He was noted to be on home oxygen. 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 Patient was noted to have a known medications and allergies.History is obtained from EMS and patient's sister. Reportedly the patient had been sick for several days with increased difficulty breathing. EKG by EMS showed sinus tachycardia GI consulted for vomiting. Per RN report, the patient had new onset of vomiting starting at 1am last night with no relief from zofran. Patient was seen in [facility], awake A&Ox4 NAD noted with tympanic abdominal distention. CT AP revealed possible cirrhosis. Patient states he a chronic ETOH user, few beers daily. Unknown history of endoscopy / colonoscopies. Home Meds Active Scripts Albuterol Sulfate* (ALBUTEROL SULFATE HHN*) 2.5 Mg/3 Ml Vial.neb, 2.5 MG HHN Q4H Y for Shortness of Breath, #25 VIAL Prov:SAMPSON THOMPSON D.O. 10/01/16 Reported Medications Multivitamins* (MULTIVITAMINS*) 1 Each Tablet, 1 TAB ORAL DAILY, TAB 0 Refills 06/05/17 Latanoprost* (XALATAN*) 2.5 Ml Drops, 2 DROP BOTH EYES BEDTIME, ML 0 Refills 06/05/17 Salmeterol Xinafoate (Serevent Diskus) 50 Mcg Blst.w.dev, 2 PUFFS INH NEEDED , PUFFS 06/05/17 Tiotropium Cora* (SPIRIVA*) 18 Mcg Cap.w.dev, 1 PUFF INH DAILY, EA 06/05/17 Methadone Hcl* (METHADONE*) 10 Mg Tablet, 80 MG PO DAILY, #10 TAB 0 Refills 06/05/17 Aspirin* (ASPIRIN*) 81 Mg Tab.chew, 81 MG ORAL DAILY, TAB 06/05/17 Lisinopril (LISINOPRIL*) 5 Mg Tablet, 5 MG ORAL DAILY, TAB 06/05/17 Hydrochlorothiazide* (HYDROCHLOROTHIAZIDE*) 12.5 Mg Capsule, 12.5 MG ORAL DAILY , CAP 06/05/17 Med list reviewed/reconciled: Yes Allergies: Coded Allergies: No Known Allergies (Unverified , 10/01/16) Patient History History Provided By: Patient, Medical Record PMH Narrative Reviewed Nursing Documentation: PMH: Agreed, PSxH: Agreed Social History: Reports: alcohol use Review of Systems All Other Systems: negative except mentioned in HPI Physical Exam Vital Signs Date Time Temp Pulse Resp B/P (MAP) Pulse Ox O2 Delivery O2 Flow Rate FiO2 06/05/17 13:47 98.6 114 16 109/75 99 Room Air 06/05/17 15:41 2.0 28 Sp02 EP Interpretation: reviewed, normal Labs Laboratory Tests Test 06/08/17 06:05 White Blood Count 19.5 K/UL (4.8-10.8) H Red Blood Count 5.17 M/UL (4.70-6.10) Hemoglobin 13.9 G/DL (14.2-18.0) L Hematocrit 42.3 % (42.0-52.0) Mean Corpuscular Volume 82 FL (80-99) Mean Corpuscular Hemoglobin 26.9 PG (27.0-31.0) L Mean Corpuscular Hemoglobin Concent 32.9 G/DL (32.0-36.0) Red Cell Distribution Width 13.4 % (11.6-14.8) Platelet Count 271 K/UL (150-450) Mean Platelet Volume 6.7 FL (6.5-10.1) Neutrophils (%) (Auto) % (45.0-75.0) Lymphocytes (%) (Auto) % (20.0-45.0) Monocytes (%) (Auto) % (1.0-10.0) Eosinophils (%) (Auto) % (0.0-3.0) Basophils (%) (Auto) % (0.0-2.0) Differential Total Cells Counted 100 Neutrophils % (Manual) 81 % (45-75) H Lymphocytes % (Manual) 11 % (20-45) L Monocytes % (Manual) 8 % (1-10) Eosinophils % (Manual) 0 % (0-3) Basophils % (Manual) 0 % (0-2) Band Neutrophils 0 % (0-8) Platelet Estimate Adequate Platelet Morphology Normal Red Blood Cell Morphology Normal Sodium Level 138 MMOL/L (136-145) Potassium Level 3.7 MMOL/L (3.5-5.1) Chloride Level 102 MMOL/L (98-107) Carbon Dioxide Level 32 MMOL/L (21-32) Anion Gap 4 mmol/L (5-15) L Blood Urea Nitrogen 15 mg/dL (7-18) Creatinine 1.0 MG/DL (0.55-1.30) Estimat Glomerular Filtration Rate > 60 mL/min (>60) Glucose Level 114 MG/DL (74-106) H Calcium Level 9.1 MG/DL (8.5-10.1) Phosphorus Level 2.2 MG/DL (2.5-4.9) L Magnesium Level 2.0 MG/DL (1.5-2.4) Total Bilirubin 0.2 MG/DL (0.2-1.0) Aspartate Amino Transf (AST/SGOT) 25 U/L (15-37) Alanine Aminotransferase (ALT/SGPT) 27 U/L (12-78) Alkaline Phosphatase 53 U/L (46-116) Total Protein 7.5 G/DL (6.4-8.2) Albumin 3.1 G/DL (3.4-5.0) L Globulin 4.4 g/dL Albumin/Globulin Ratio 0.7 (1.0-2.7) L Amylase Level 40 U/L (25-115) Lipase 109 U/L (73-393) General Appearance: well appearing, no apparent distress, alert Head: normocephalic EENT: PERRL/EOMI, normal ENT inspection Neck: supple Respiratory: normal breath sounds, no respiratory distress Cardiovascular: normal rate Gastrointestinal: normal inspection, non tender, soft, normal bowel sounds, non -distended Rectal: deferred Genitourinary: deferred Musculoskeletal: normal inspection, back normal Neurologic: normal inspection, alert, oriented x3, responsive Psychiatric: normal inspection, judgement/insight normal, memory normal Skin: normal inspection, normal color, no rash, warm/dry, palpation normal, well hydrated Lymphatic: normal inspection, no adenopathy Current Medications Current Medications Medications (Trade) Dose Ordered Sig/Thom Route PRN Reason Start Time Stop Time Status Last Admin Dose Admin Albuterol/ Ipratropium (Albuterol/ Ipratropium) 3 ml Q4H PRN HHN dyspnea 06/06/17 22:26 06/11/17 22:25 06/08/17 09:14 Dextrose (Dextrose 50%) STAT PRN IV Hypoglycemia 06/06/17 22:25 07/06/17 22:24 Heparin Sodium (Porcine) (Heparin 5000 units/ml) 5,000 units EVERY 12 HOURS SUBQ 06/07/17 09:00 07/05/17 20:59 06/08/17 08:50 Latanoprost (Xalatan) 2 drop BEDTIME BOTH EYES 06/07/17 21:00 07/06/17 20:59 06/07/17 20:47 Lisinopril (Zestril) 5 mg DAILY ORAL 06/07/17 09:00 07/06/17 08:59 06/08/17 08:47 Lorazepam (Ativan 2mg/ml 1ml) 0.5 mg Q4H PRN IV For Anxiety 06/06/17 22:29 06/13/17 22:28 Methadone HCl (Methadone HCl) 80 mg DAILY ORAL 06/07/17 09:00 06/13/17 11:59 06/08/17 08:45 Methylprednisolone Sodium Succinate (Solu-MEDROL) 60 mg DAILY IV 06/08/17 09:00 07/06/17 00:00 06/08/17 08:46 Morphine Sulfate (Morphine Sulfate) 2 mg Q4H PRN IVP severe pain 7-10 06/07/17 00:45 06/12/17 20:44 06/07/17 00:21 Nitroglycerin (Ntg) 0.4 mg Q5M X 3 DOSES PRN SL Prn Chest Pain 06/06/17 22:15 07/05/17 20:44 Ondansetron HCl (Zofran) 4 mg Q6H PRN IVP Nausea & Vomiting 06/07/17 02:45 07/05/17 20:44 06/08/17 08:46 Piperacillin Sod/ Tazobactam Sod 3.375 gm/Sodium Chloride 55 ml @ 13.75 mls/ hr EVERY 8 HOURS IVPB 06/07/17 06:00 06/12/17 21:59 06/08/17 05:43 Promethazine HCl/ Codeine (Phenergan with Codeine) 5 ml Q6H PRN ORAL cough 06/07/17 02:45 07/05/17 20:44 Temazepam (Restoril) 15 mg HSPRN PRN ORAL Insomnia 06/07/17 20:45 06/12/17 20:44 Theophylline ([place]-Dur) 100 mg EVERY 12 HOURS ORAL 06/07/17 09:00 07/05/17 20:59 06/08/17 08:46 GI: Plan Problems: (1) Vomiting (2) Alcoholic cirrhosis (3) Episode of generalized weakness Plan CT AP reviewed >> Chronic liver disease/cirrhosis suspected. amylase/lipase normal symptomatic treatment zofran prn, reglan for persistent vomiting hepatitis panel MVI, B12/folate avoid alcohol fu labs outpatient GI procedures Discussed with Dr. Ngo. Thank you for this patient referral, we will follow. AIDEN NGO 06/13/17 0906: History of Present Illness General Reason for Hospitalization: Generalized Weakness Present Illness Home Meds Active Scripts Albuterol Sulfate* (ALBUTEROL SULFATE HHN*) 2.5 Mg/3 Ml Vial.neb, 2.5 MG HHN Q4H Y for Shortness of Breath, #25 VIAL Prov:ASMPSON THOMPSON D.O. 10/01/16 Reported Medications Multivitamins* (MULTIVITAMINS*) 1 Each Tablet, 1 TAB ORAL DAILY, TAB 0 Refills 06/05/17 Latanoprost* (XALATAN*) 2.5 Ml Drops, 2 DROP BOTH EYES BEDTIME, ML 0 Refills 06/05/17 Salmeterol Xinafoate (Serevent Diskus) 50 Mcg Blst.w.dev, 2 PUFFS INH NEEDED , PUFFS 06/05/17 Tiotropium Cora* (SPIRIVA*) 18 Mcg Cap.w.dev, 1 PUFF INH DAILY, EA 06/05/17 Methadone Hcl* (METHADONE*) 10 Mg Tablet, 80 MG PO DAILY, #10 TAB 0 Refills 06/05/17 Aspirin* (ASPIRIN*) 81 Mg Tab.chew, 81 MG ORAL DAILY, TAB 06/05/17 Lisinopril (LISINOPRIL*) 5 Mg Tablet, 5 MG ORAL DAILY, TAB 06/05/17 Hydrochlorothiazide* (HYDROCHLOROTHIAZIDE*) 12.5 Mg Capsule, 12.5 MG ORAL DAILY , CAP 06/05/17 Allergies: Coded Allergies: No Known Allergies (Unverified , 10/01/16) GI: Plan Plan The patient was seen and examined at bedside and all new and available data was reviewed in the patients chart. I agree with the above findings, impression and plan. (Patient seen earlier today. Signature stamp does not reflect patient encounter time.). - MD [facility] Zachariah N.PVeda Jun 08, 2017 12:13 AIDEN NGO Jun 13, 2017 09:06
[2017-06-08] MEDS ORDERED: Vitamin B12 1000mcg/ml Inj IM ONE (12:30)
--- NOTE | 2017-06-08 14:27 | Pulmonology Progress Note ---
Assessment/Plan Problems: (1) Dehydration (2) Hypercarbia (3) Episode of generalized weakness (4) COPD with exacerbation Assessment/Plan decrease steroids check sputum titrate fio2 to sat of 02 check electrolytes dc home with oral abx and steroids Subjective Constitutional: Reports: no symptoms HEENT: Repors: no symptoms Respiratory: Reports: other Allergies: Coded Allergies: No Known Allergies (Unverified , 10/01/16) Objective Last 24 Hour Vital Signs Date Time Temp Pulse Resp B/P (MAP) Pulse Ox O2 Delivery O2 Flow Rate FiO2 06/08/17 11:21 98.2 109 20 135/89 95 06/08/17 09:22 108 20 98 Nasal Cannula 2.0 28 06/08/17 09:13 105 24 95 Nasal Cannula 2.0 28 06/08/17 08:47 138/88 06/08/17 08:16 98.7 93 20 138/88 96 06/08/17 07:46 Room Air 06/08/17 07:46 95 Room Air 21 06/08/17 07:45 95 14 Room Air 21 06/08/17 04:00 97 Nasal Cannula 2.0 06/08/17 04:00 98.6 86 22 146/89 97 Nasal Cannula 2.0 06/08/17 00:00 98.4 99 16 142/89 99 Nasal Cannula 2.0 06/08/17 00:00 99 Nasal Cannula 2.0 06/07/17 20:00 98 Nasal Cannula 2.0 06/07/17 20:00 98.5 95 18 141/91 98 Room Air 06/07/17 19:27 Nasal Cannula 2.0 28 06/07/17 19:26 99 Nasal Cannula 2.0 28 06/07/17 16:00 98.1 72 20 104/61 99 06/07/17 15:20 100 18 98 Nasal Cannula 2.0 28 06/07/17 15:20 103 18 98 Nasal Cannula 2.0 28 Intake and Output 06/07/17 06/08/17 19:00 07:00 Intake Total 1042.50 ml 555.00 ml Output Total 300 ml 1300 ml Balance 742.50 ml -745.00 ml Intake Oral 960 ml 500 ml IV Total 82.50 ml 55.00 ml Output Urine Total 300 ml 1100 ml Emesis 200 ml # Voids 3 # Bowel Movements 1 Objective Lines, tubes and drains: peripheral HEENT: normocephalic, atraumatic Neck: non-tender, supple Respiratory/Chest: chest wall non-tender,decreased breath sounds, no respiratory distress, +rhonchi Breasts: no masses Cardiovascular/Chest: normal peripheral pulses Abdomen: normal bowel sounds Genitourinary/Rectal: normal genital exam Extremities: normal range of motion, non-tender Skin Exam: cyanotic 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 Microbiology Date/Time Source Procedure Growth Status 06/05/17 15:24 Blood Blood Culture - Preliminary NO GROWTH AFTER 48 HOURS Resulted 06/05/17 15:09 Blood Blood Culture - Preliminary NO GROWTH AFTER 48 HOURS Resulted 06/06/17 00:00 Sputum Gram Stain - Final Complete 06/06/17 00:00 Sputum Sputum Culture - Final NORMAL UPPER RESPIRATORY KIKA PRESENT Complete 06/05/17 14:30 Nasal Nares Influenza Types A,B Antigen (CHARLEEN) - Final Complete Laboratory Tests 06/08/17 06:05: White Blood Count 19.5H, Red Blood Count 5.17, Hemoglobin 13.9L, Hematocrit 42.3 , Mean Corpuscular Volume 82, Mean Corpuscular Hemoglobin 26.9L, Mean Corpuscular Hemoglobin Concent 32.9, Red Cell Distribution Width 13.4, Platelet Count 271, Mean Platelet Volume 6.7, Neutrophils (%) (Auto) , Lymphocytes (%) ( Auto) , Monocytes (%) (Auto) , Eosinophils (%) (Auto) , Basophils (%) (Auto) , Differential Total Cells Counted 100, Neutrophils % (Manual) 81H, Lymphocytes % (Manual) 11L, Monocytes % (Manual) 8, Eosinophils % (Manual) 0, Basophils % ( Manual) 0, Band Neutrophils 0, Platelet Estimate Adequate, Platelet Morphology Normal, Red Blood Cell Morphology Normal, Sodium Level 138, Potassium Level 3.7 , Chloride Level 102, Carbon Dioxide Level 32, Anion Gap 4L, Blood Urea Nitrogen 15, Creatinine 1.0, Estimat Glomerular Filtration Rate > 60, Glucose Level 114H, Calcium Level 9.1, Phosphorus Level 2.2L, Magnesium Level 2.0, Total Bilirubin 0.2, Aspartate Amino Transf (AST/SGOT) 25, Alanine Aminotransferase (ALT/SGPT) 27, Alkaline Phosphatase 53, Total Protein 7.5, Albumin 3.1L, Globulin 4.4, Albumin/Globulin Ratio 0.7L, Amylase Level 40, Lipase 109 Current Medications Medications (Trade) Dose Ordered Sig/Thom Route PRN Reason Start Time Stop Time Status Last Admin Dose Admin Albuterol/ Ipratropium (Albuterol/ Ipratropium) 3 ml Q4H PRN HHN dyspnea 06/06/17 22:26 06/11/17 22:25 06/08/17 09:14 Dextrose (Dextrose 50%) STAT PRN IV Hypoglycemia 06/06/17 22:25 07/06/17 22:24 Folic Acid (Folate) 1 mg DAILY ORAL 06/09/17 09:00 07/09/17 08:59 Heparin Sodium (Porcine) (Heparin 5000 units/ml) 5,000 units EVERY 12 HOURS SUBQ 06/07/17 09:00 07/05/17 20:59 06/08/17 08:50 Latanoprost (Xalatan) 2 drop BEDTIME BOTH EYES 06/07/17 21:00 07/06/17 20:59 06/07/17 20:47 Lisinopril (Zestril) 5 mg DAILY ORAL 06/07/17 09:00 07/06/17 08:59 06/08/17 08:47 Lorazepam (Ativan 2mg/ml 1ml) 0.5 mg Q4H PRN IV For Anxiety 06/06/17 22:29 06/13/17 22:28 Methadone HCl (Methadone HCl) 80 mg DAILY ORAL 06/07/17 09:00 06/13/17 11:59 06/08/17 08:45 Methylprednisolone Sodium Succinate (Solu-MEDROL) 60 mg DAILY IV 06/08/17 09:00 07/06/17 00:00 06/08/17 08:46 Morphine Sulfate (Morphine Sulfate) 2 mg Q4H PRN IVP severe pain 7-10 06/07/17 00:45 06/12/17 20:44 06/07/17 00:21 Multivitamins (Multivitamins) 1 tab DAILY ORAL 06/09/17 09:00 07/09/17 08:59 Nitroglycerin (Ntg) 0.4 mg Q5M X 3 DOSES PRN SL Prn Chest Pain 06/06/17 22:15 07/05/17 20:44 Ondansetron HCl (Zofran) 4 mg Q6H PRN IVP Nausea & Vomiting 06/07/17 02:45 07/05/17 20:44 06/08/17 08:46 Piperacillin Sod/ Tazobactam Sod 3.375 gm/Sodium Chloride 55 ml @ 13.75 mls/ hr EVERY 8 HOURS IVPB 06/07/17 06:00 06/12/17 21:59 06/08/17 13:52 Promethazine HCl/ Codeine (Phenergan with Codeine) 5 ml Q6H PRN ORAL cough 06/07/17 02:45 07/05/17 20:44 Temazepam (Restoril) 15 mg HSPRN PRN ORAL Insomnia 06/07/17 20:45 06/12/17 20:44 Theophylline ([place]) 100 mg EVERY 12 HOURS ORAL 06/07/17 09:00 07/05/17 20:59 06/08/17 08:46 MILO BENITEZ Jun 08, 2017 14:27
[2017-06-08 16:45] VITALS: BP 132/93
[2017-06-08 20:00] VITALS: BP 123/80
[2017-06-09] MEDS ORDERED: Thiamine 100mg tab ORAL SCH (09:00)
--- NOTE | 2017-06-09 15:15 | Discharge Summary ---
Discharge Summary Hospital Course Date of Admission Jun 05, 2017 at 16:25 Date of Discharge Jun 08, 2017 at 20:20 Admitting Diagnosis COPD EXACERBATION HPI Kaushal Argueta is a 71 year old male who was admitted on Jun 05, 2017 at 16:25 for Chronic Obstructive Pulmonary Disease Exacerbation Hospital Course [id number] Discharge Discharge Disposition Patient was discharged to Home (01) Discharge Diagnoses: Karolina Rothman NP Jun 09, 2017 15:15
--- NOTE | 2017-06-10 | Discharge Summary 2 SIG ---
DATE OF ADMISSION: 06/05/2017 DATE OF DISCHARGE: 06/08/2017 [employer] REP: Carlitos Byrd M.D. BRIEF HOSPITAL COURSE: The patient is a 71-year-old male on methadone with history of emphysema and is on home O2, was brought in by EMS after increased generalized weakness due to alteration in mental status. The patient reportedly had been sick for several days with increased difficulty breathing. On evaluation at ED, ABG was noted to have CO2 retention consistent with COPD exacerbation. Head CT showed no acute hemorrhage or CVA. He was noted to have abdominal distention, and CAT scan of the abdomen and pelvis showed nodularity on the liver surface, normal appendix, prominent spleen, evidence of right total hip replacement, and degenerative changes of the spine. He was started on Solu-Medrol 60 mg IV and was given Zosyn. He had new onset of vomiting with no relief from Zofran. GI was consulted. Amylase and lipase were normal. He was given symptomatic treatment. Hepatitis panel was negative. He was recommended outpatient endoscopy. Steroids were tapered. Blood cultures did not isolate any growth. Influenza A and B was normal, and sputum showed normal upper respiratory goldie. He was eventually cleared for discharge to follow up as outpatient. FINAL DIAGNOSES: 1. Acute chronic obstructive pulmonary disease exacerbation. 2. Generalized weakness. 3. Dehydration. 4. Hypercarbia. 5. Nausea and vomiting. 6. Alcoholic cirrhosis. DISPOSITION: The patient was discharged home. DISCHARGE MEDICATIONS: Refer to medication list. DISCHARGE INSTRUCTIONS: Follow up with PCP in a week. Janey Kc M.D. I have been assigned to dictate discharge summary on this account and I was not involved in the patient's management. Karolina Rothman N.P. DR: Isaías JOB#: [id number] CC: PRAVEEN
== END 2017-06-08 20:20 | disposition home or self-care (01) | DRG 140 ==
LOC: EDUNIT# 13:46 → EDBD 13:46 → EMR 14:15 → 2E 16:25 → EDBEDREQ 16:28 → 2E 17:33 → 4E 06-06 22:27
DX: J44.1 Chronic obstructive pulmonary disease with (acute) exacerbation (principal); K70.30 Alcoholic cirrhosis of liver without ascites; E86.0 Dehydration; R06.89 Other abnormalities of breathing; R53.1 Weakness; R11.2 Nausea with vomiting, unspecified; Z96.641 Presence of right artificial hip joint
CPT/HCPCS: 36415; 36600; 70450; 71045; 74177; 80053; 82150; 82550; 82553; 82803; 83605; 83690; 83735; 84100; 84484; 85007; 85025; 85610; 85730; 86710; 87040; 87070; 87205; 93005; 94640; 94664; 94760; 99285; J2405; J7620

== ENCOUNTER 2017-09-16 04:16 | Inpatient (IN) | payer MEDICARE, MEDICAID ==
[~2017-09-16] VITALS: Ht 167.6 cm; Wt 77.1 kg
[2017-09-16] VITALS (8 sets, daily range): BP systolic 110–151; BP diastolic 63–96
[~2017-09-16 04:16] MED LIST changes: +ASPIRIN81 MG ORAL; +HYDROCHLOROTH12.5 M2 ORAL; +LATANOPROST1 GM MC; +LATANOPROST2.5 ML BOTH EYES; +LISINOPRIL5 MG ORAL; +METHADONE HCL10 MG PO; +MULTIVITAMINS1 EAC2 ORAL; +SALMETEROL INH; +SPIRIVA18 MCG INH
--- NOTE | 2017-09-16 04:37 | Emergency Room Report ---
History of Present Illness General Chief Complaint: Dyspnea/Respdistress Source: Patient Present Illness HPI Is a 71-year-old male who is a former IV drug user and smoker. He has a history of COPD and dependent on oxygen at 2 L nasal cannula. He was doing well until tonight. He said he woke up tonight and was cold so he turned on the heat. And then he woke up again feeling short of breath. He said that he could not breathe. He uses inhaler without any relief. He call 911. Per EMS he was in respiratory distress with pulse oxing at 60 percentile on room air. They gave him breathing treatment and put him on oxygen. Oxygenation is now 98% . He said he felt better. No fever chills but no nausea no vomiting. Denies any smoking history for the last several years. Denies any drug use. No chest pain. Worse with exertion. Better with rest. Allergies: Coded Allergies: No Known Allergies (Unverified , 10/01/16) Patient History Past Medical History: see triage record, old chart reviewed, COPD Past Surgical History: other Pertinent Family History: none Social History: Denies: smoking - history Immunizations: other Reviewed Nursing Documentation: PMH: Agreed; PSxH: Agreed Nursing Documentation-PMH Past Medical History: No History, Except For Hx Cardiac Problems: Yes Hx Hypertension: Yes Hx Asthma: Yes Hx COPD: Yes - Emphysema, Hx Cancer: No Hx Gastrointestinal Problems: No Hx Neurological Problems: No Review of Systems Eye: Denies: eye pain, blurred vision ENT: Denies: ear pain, nose congestion, throat swelling Respiratory: Reports: cough, shortness of breath, wheezing Cardiovascular: Denies: chest pain, palpitations Gastrointestinal: Denies: abdominal pain, diarrhea, nausea, vomiting Musculoskeletal: Denies: back pain, joint pain Skin: Denies: rash Neurological: Denies: headache, numbness Endocrine: Denies: increased thirst, increased urine Hematologic/Lymphatic: Denies: easy bruising All Other Systems: negative except mentioned in HPI Physical Exam Vital Signs Date Time Temp Pulse Resp B/P (MAP) Pulse Ox O2 Delivery O2 Flow Rate FiO2 09/16/17 04:16 98.4 122 14 140/75 99 T-piece 4.0 98.4 vitals with tachycardia Sp02 EP Interpretation: reviewed, normal General Appearance: well appearing, alert, mild distress Head: normocephalic, atraumatic Eyes: bilateral eye PERRL, bilateral eye EOMI ENT: hearing grossly normal, normal pharynx Neck: full range of motion, supple, no meningismus Respiratory: chest non-tender, respiratory distress, decreased breath sounds, accessory muscle use, wheezing Cardiovascular #1: regular rate, rhythm, no murmur Gastrointestinal: normal bowel sounds, non tender, no mass, no organomegaly, no bruit, non-distended Musculoskeletal: back normal, gait/station normal, normal range of motion Psychiatric: mood/affect normal Skin: warm/dry Procedures Critical Care Time Critical Care Time Critical care is mandated in this patient who presented with acute on chronic respiratory failure. Patient require my urgent intervention to attenuate the risks of respiratory collapse which may lead to cardiovascular collapse and . Critical care time is 35 minutes excluding any reportable procedure. Critical care time included evaluation, multiple reevaluation, looking at old charts, interpreting laboratory and diagnostic data, discussing case with patient and family and consultants, and charting. Medical Decision Making Diagnostic Impression: Primary Impression: COPD with exacerbation Additional Impression: Respiratory failure, acute and chronic Qualified Codes: J96.21 - Acute and chronic respiratory failure with hypoxia ER Course Patient presents with acute on chronic respiratory failure secondary to COPD. Better after breathing treatment, steroid and magnesium. Still to keep ochoa wheezing. No evidence of ACS, PE, dissection or pneumonia to name a few. Will admit for further treatment. I discussed the case with Dr. Ignacio for admission. Laboratory Tests Test 09/16/17 05:04 White Blood Count 10.3 K/UL (4.8-10.8) Red Blood Count 4.93 M/UL (4.70-6.10) Hemoglobin 12.7 G/DL (14.2-18.0) L Hematocrit 39.4 % (42.0-52.0) L Mean Corpuscular Volume 80 FL (80-99) Mean Corpuscular Hemoglobin 25.7 PG (27.0-31.0) L Mean Corpuscular Hemoglobin Concent 32.2 G/DL (32.0-36.0) Red Cell Distribution Width 13.6 % (11.6-14.8) Platelet Count 287 K/UL (150-450) Mean Platelet Volume 7.2 FL (6.5-10.1) Neutrophils (%) (Auto) 72.9 % (45.0-75.0) Lymphocytes (%) (Auto) 14.0 % (20.0-45.0) L Monocytes (%) (Auto) 8.5 % (1.0-10.0) Eosinophils (%) (Auto) 3.0 % (0.0-3.0) Basophils (%) (Auto) 1.6 % (0.0-2.0) Sodium Level 138 MMOL/L (136-145) Potassium Level 4.0 MMOL/L (3.5-5.1) Chloride Level 101 MMOL/L (98-107) Carbon Dioxide Level 34 MMOL/L (21-32) H Anion Gap 3 mmol/L (5-15) L Blood Urea Nitrogen 10 mg/dL (7-18) Creatinine 1.0 MG/DL (0.55-1.30) Estimat Glomerular Filtration Rate > 60 mL/min (>60) Glucose Level 136 MG/DL (74-106) H Calcium Level 9.0 MG/DL (8.5-10.1) Total Bilirubin 0.2 MG/DL (0.2-1.0) Aspartate Amino Transf (AST/SGOT) 21 U/L (15-37) Alanine Aminotransferase (ALT/SGPT) 17 U/L (12-78) Alkaline Phosphatase 81 U/L (46-116) Total Creatine Kinase 293 U/L (26-308) Creatine Kinase MB 1.1 NG/ML (0.0-3.6) Creatine Kinase MB Relative Index 0.3 Troponin I 0.000 ng/mL (0.000-0.056) Pro-B-Type Natriuretic Peptide 23 pg/mL (0-125) Total Protein 7.8 G/DL (6.4-8.2) Albumin 3.3 G/DL (3.4-5.0) L Globulin 4.5 g/dL Albumin/Globulin Ratio 0.7 (1.0-2.7) L Lab Results Impression labs unremarkable EKG Diagnostic Results Rate: tachycardiac Rhythm: NSR ST Segments: no acute changes Rhythm Strip Diag. Results Rhythm Strip Time: 05:52 EP Interpretation: yes Rate: 110 Rhythm: NSR, no PVC's, no ectopy Chest X-Ray Diagnostic Results Chest X-Ray Diagnostic Results : Chest X-Ray Ordered: Yes # of Views/Limited/Complete: 1 View Indication: Shortness of Breath EP Interpretation: Yes Interpretation: no consolidation, no effusion, no pneumothorax, no acute cardiopulmonary disease Impression: No acute disease Electronically Signed by: Chidi Mosqueda MD Last Vital Signs Date Time Temp Pulse Resp B/P (MAP) Pulse Ox O2 Delivery O2 Flow Rate FiO2 09/16/17 04:31 122 14 Nasal Cannula 4.0 09/16/17 04:16 98.4 140/75 99 98.4 Status: improved Disposition: ADMITTED INPATIENT Condition: Serious CHIDI MOSQUEDA M.D. September 16, 2017 04:37
[2017-09-16] MEDS ORDERED: Solu-MEDROL 125mg Inj IVP ONE (04:45)
[2017-09-16] MEDS ORDERED: Albuterol/Ipratropium 3ml neb HHN ONE (04:45)
[2017-09-16 05:16] LABS: BASOPHILS % (AUTO) 1.6 % (0.0-2.0); HEMATOCRIT 39.4 % (42.0-52.0); HEMOGLOBIN 12.7 G/DL (14.2-18.0); MEAN CORPUSCULAR VOLUME 80 FL (80-99); MONOCYTES % (AUTO) 8.5 % (1.0-10.0); NEUTROPHILS % (AUTO) 72.9 % (45.0-75.0); PLATELET COUNT 287 K/UL (150-450); RED BLOOD COUNT 4.93 M/UL (4.70-6.10); RED CELL DISTRIBUTION WIDTH 13.6 % (11.6-14.8); WHITE BLOOD COUNT 10.3 K/UL (4.8-10.8)
[2017-09-16 05:29] LABS: ANION GAP 3 mmol/L (5-15); BLOOD UREA NITROGEN 10 mg/dL (7-18); CARBON DIOXIDE 34 MMOL/L (21-32); CHLORIDE 101 MMOL/L (98-107); SODIUM 138 MMOL/L (136-145)
[2017-09-16 05:44] LABS: ALANINE AMINOTRANSFERASE 17 U/L (12-78); ALBUMIN 3.3 G/DL (3.4-5.0); ALBUMIN/GLOBULIN RATIO 0.7 (1.0-2.7); ALKALINE PHOSPHATASE 81 U/L (46-116); ASPARTATE AMINO TRANSFERASE 21 U/L (15-37); BILIRUBIN,TOTAL 0.2 MG/DL (0.2-1.0); CKMB 1.1 NG/ML (0.0-3.6); CREATINE KINASE 293 U/L (26-308)
[2017-09-16] MEDS ORDERED: LISINOPRIL10 MG ORAL (06:12)
[2017-09-16] MEDS ORDERED: Albuterol ud Inhalation HHN PRN ×2 (07:31→13:30)
[2017-09-16] MEDS ORDERED: hydroCHLOROthiazide 12.5mg TAB ORAL SCH (09:00)
[2017-09-16] MEDS ORDERED: Lisinopril 10mg tab ORAL SCH (09:00)
[2017-09-16] MEDS ORDERED: Aspirin Baby 81mg ORAL SCH (09:00)
[2017-09-16] MEDS ORDERED: Albuterol/Ipratropium 3ml neb HHN SCH ×3 (10:00→22:00)
--- NOTE | 2017-09-16 10:30 | History and Physical Report ---
DATE OF ADMISSION: 09/16/2017 REASON FOR ADMISSION: 1. Shortness of breath. 2. Chronic obstructive pulmonary disease exacerbation. HISTORY OF PRESENT ILLNESS: The patient is a 71-year-old gentleman with a 50 plus pack year history of smoking, who quit approximately 8 years ago. The patient does have known chronic obstructive pulmonary disease. He said he started having difficulty breathing and wheezing overnight. He got cold and said he tried to turn on his home heater and continued to be cold and he then got very short of breath and anxious. As such, he presented to emergency room for further evaluation and care. PAST MEDICAL HISTORY: 1. Tobacco dependency. 2. Hypertension. 3. Chronic obstructive pulmonary disease. 4. Chronic opioid dependency. PAST SURGICAL HISTORY: Noncontributory. ALLERGIES: No known drug allergies. PAST SOCIAL HISTORY: Fifty year plus pack history of tobacco use. No alcohol or illicit drug use. Chronic opioid use. FAMILY HISTORY: Positive for hypertension. REVIEW OF SYSTEMS: NEUROLOGIC: The patient denies headache, change in vision, syncope, or presyncopal episodes. CARDIOVASCULAR: No current chest pain, palpitations, or angina. PULMONARY: Mild shortness of breath with nonproductive cough. GASTROINTESTINAL/GENITOURINARY: No nausea, vomiting, or diarrhea. ENDOCRINOLOGY: No night sweats, fevers, or chills. MUSCULOSKELETAL: The patient is feeling weak, tired, and fatigued. PHYSICAL EXAMINATION: VITAL SIGNS: Blood pressure 112/65, respiratory rate 16, pulse 106, temperature 98.4, and saturating 96% on 2 liters nasal cannula. GENERAL: The patient is awake and in mild respiratory distress. HEENT: Extraocular muscles intact. No lymphadenopathy noted. CARDIOVASCULAR: S1, S2. No rubs or gallops. PULMONARY: Mild diffuse expiratory wheezing in all lung stallings with fair airway movement. ABDOMINAL: Nondistended and nontender. EXTREMITY: No edema noted. LABORATORY DATA: Laboratories dated 09/16/2017, sodium 138, potassium 4, BUN 10, and creatinine 1. Normal LFTs. Troponin 0. Hemoglobin 12.7, white cell count 10.3, and platelet count 287,000. ASSESSMENT AND PLAN: 1. Chronic obstructive pulmonary disease exacerbation. The patient has been initiated on 2 liters nasal cannula and given intravenous steroids in the emergency room. The patient is feeling better. He will continue his inhaler therapy. Consultation for further evaluation and management per Pulmonary has been placed with Dr. Kc. 2. Hypertension. Continue home dose medications consistent with his regimen and adjust medications as deemed appropriate. 3. DVT prophylaxis with heparin subcutaneous. 4. Chronic pain syndrome and opioid dependency. The patient has been on methadone on a daily basis. We will continue this and then he is to follow up with his primary care physician for continued prescribed therapy. Tod Ignacio MD DR: APOLLO JOB#: [id number] CC: PRAVEEN
--- NOTE | 2017-09-16 11:59 | Consultation ---
History of Present Illness General Date patient seen: September 16, 2017 Chief Complaint: Dyspnea/Respdistress Present Illness HPI 71-year-old male EX-IVDA on Methadone, with hx of emphysema, on home oxygen.brought in by EMS after increased shortness of breath. His saturation on RA in the field was 60%. He received some respiratory therapy by paramedics and felt slightly better. He was in respiratory distress in ER and received IV steroids and some more respiratory treatment. Pt is admitted to [facility] for further evaluation. He is currently off Allergies: Coded Allergies: No Known Allergies (Unverified , 10/01/16) Medication History Scheduled Aspirin* (Aspirin*), 81 MG ORAL DAILY, (Reported) Hydrochlorothiazide* (Hydrochlorothiazide*), 12.5 MG ORAL DAILY, (Reported) Latanoprost* (Xalatan*), 2 DROP BOTH EYES BEDTIME, (Reported) Lisinopril (Lisinopril*), 5 MG ORAL DAILY, (Reported) Lisinopril* (Lisinopril*), 10 MG ORAL DAILY, (Reported) Methadone Hcl* (Methadone*), 80 MG PO DAILY, (Reported) Multivitamins* (Multivitamins*), 1 TAB ORAL DAILY, (Reported) Salmeterol Xinafoate (Serevent Diskus), 2 PUFFS INH NEEDED, (Reported) Tiotropium [place]* (Spiriva*), 1 PUFF INH DAILY, (Reported) Scheduled PRN Albuterol Sulfate* (Albuterol Sulfate Hhn*), 2.5 MG HHN Q4H PRN for Shortness of Breath Patient History Healthcare decision maker n/a Resuscitation status Full Code Advanced Directive on File Past Medical/Surgical History Past Medical/Surgical History: (1) COPD (chronic obstructive pulmonary disease) (2) Alcoholic cirrhosis Review of Systems All Other Systems: negative except mentioned in HPI Physical Exam General Appearance: WD/WN Lines, tubes and drains: peripheral HEENT: normocephalic, atraumatic Neck: non-tender, normal alignment Respiratory/Chest: chest wall non-tender, lungs clear Breasts: no masses Cardiovascular/Chest: normal peripheral pulses, normal rate Abdomen: normal bowel sounds Genitourinary/Rectal: normal genital exam Extremities: normal range of motion Last 24 Hour Vital Signs Date Time Temp Pulse Resp B/P (MAP) Pulse Ox O2 Delivery O2 Flow Rate FiO2 09/16/17 10:29 116 22 98 Nasal Cannula 2.0 28 09/16/17 09:47 112/65 09/16/17 08:38 98.4 106 16 112/65 96 Nasal Cannula 2.0 98.4 09/16/17 07:24 98.4 106 16 112/65 96 Nasal Cannula 2.0 98.4 09/16/17 07:12 98.4 104 16 110/63 96 Room Air 2.0 98.4 09/16/17 05:48 98.2 113 13 118/69 94 Room Air 2.0 98.2 09/16/17 05:01 116 15 100 Room Air 09/16/17 04:44 118 22 Room Air 09/16/17 04:44 118 22 99 Room Air 09/16/17 04:31 122 14 Nasal Cannula 4.0 09/16/17 04:16 98.4 122 14 140/75 99 T-piece 4.0 98.4 Intake and Output 09/15/17 09/16/17 19:00 07:00 Intake Total 100 ml Balance 100 ml Intake Oral 100 ml Laboratory Tests Test 09/16/17 05:04 White Blood Count 10.3 K/UL (4.8-10.8) Red Blood Count 4.93 M/UL (4.70-6.10) Hemoglobin 12.7 G/DL (14.2-18.0) L Hematocrit 39.4 % (42.0-52.0) L Mean Corpuscular Volume 80 FL (80-99) Mean Corpuscular Hemoglobin 25.7 PG (27.0-31.0) L Mean Corpuscular Hemoglobin Concent 32.2 G/DL (32.0-36.0) Red Cell Distribution Width 13.6 % (11.6-14.8) Platelet Count 287 K/UL (150-450) Mean Platelet Volume 7.2 FL (6.5-10.1) Neutrophils (%) (Auto) 72.9 % (45.0-75.0) Lymphocytes (%) (Auto) 14.0 % (20.0-45.0) L Monocytes (%) (Auto) 8.5 % (1.0-10.0) Eosinophils (%) (Auto) 3.0 % (0.0-3.0) Basophils (%) (Auto) 1.6 % (0.0-2.0) Sodium Level 138 MMOL/L (136-145) Potassium Level 4.0 MMOL/L (3.5-5.1) Chloride Level 101 MMOL/L (98-107) Carbon Dioxide Level 34 MMOL/L (21-32) H Anion Gap 3 mmol/L (5-15) L Blood Urea Nitrogen 10 mg/dL (7-18) Creatinine 1.0 MG/DL (0.55-1.30) Estimat Glomerular Filtration Rate > 60 mL/min (>60) Glucose Level 136 MG/DL (74-106) H Calcium Level 9.0 MG/DL (8.5-10.1) Total Bilirubin 0.2 MG/DL (0.2-1.0) Aspartate Amino Transf (AST/SGOT) 21 U/L (15-37) Alanine Aminotransferase (ALT/SGPT) 17 U/L (12-78) Alkaline Phosphatase 81 U/L (46-116) Total Creatine Kinase 293 U/L (26-308) Creatine Kinase MB 1.1 NG/ML (0.0-3.6) Creatine Kinase MB Relative Index 0.3 Troponin I 0.000 ng/mL (0.000-0.056) Pro-B-Type Natriuretic Peptide 23 pg/mL (0-125) Total Protein 7.8 G/DL (6.4-8.2) Albumin 3.3 G/DL (3.4-5.0) L Globulin 4.5 g/dL Albumin/Globulin Ratio 0.7 (1.0-2.7) L Height (Feet): 5 Height (Inches): 6.00 Weight (Pounds): 170 Medications Current Medications Medications (Trade) Dose Ordered Sig/Thom Route PRN Reason Start Time Stop Time Status Last Admin Dose Admin Albuterol Sulfate (Proventil) 2.5 mg Q12H PRN HHN Shortness of Breath 09/16/17 07:31 09/21/17 07:30 Albuterol/ Ipratropium (Albuterol/ Ipratropium) 3 ml BIDRT HHN 09/16/17 10:00 09/21/17 09:59 09/16/17 10:34 Aspirin (ASA) 81 mg DAILY ORAL 09/16/17 09:00 10/16/17 08:59 09/16/17 09:46 Dextrose (Dextrose 50%) 25 ml STAT PRN IV Hypoglycemia 09/16/17 07:30 10/16/17 07:29 Dextrose (Dextrose 50%) 50 ml STAT PRN IV Hypoglycemia 09/16/17 07:30 10/16/17 07:29 Heparin Sodium (Porcine) (Heparin 5000 units/ml) 5,000 units EVERY 8 HOURS SUBQ 09/16/17 14:00 10/16/17 13:59 Hydrochlorothiazide (Hydrodiuril) 12.5 mg DAILY ORAL 09/16/17 09:00 10/16/17 08:59 09/16/17 09:46 Latanoprost (Xalatan) 1 drop BEDTIME BOTH EYES 09/16/17 21:00 10/16/17 20:59 Lisinopril (Zestril) 10 mg DAILY ORAL 09/16/17 09:00 10/16/17 08:59 09/16/17 09:47 Methadone HCl (Methadone HCl) 60 mg DAILY ORAL 09/16/17 09:00 09/23/17 08:59 UNV Multivitamins (Multivitamins) 1 tab DAILY ORAL 09/16/17 09:00 10/16/17 08:59 09/16/17 09:46 Sodium Chloride 1,000 ml @ 75 mls/hr [id number] IVLG 09/16/17 08:00 10/16/17 07:59 09/16/17 08:10 Assessment/Plan Problem List: (1) Respiratory failure, acute and chronic ICD Codes: J96.20 - Acute and chronic respiratory failure, unspecified whether with hypoxia or hypercapnia SNOMED: 41682012 Qualifiers: Qualified Codes: J96.21 - Acute and chronic respiratory failure with hypoxia (2) COPD with exacerbation ICD Codes: J44.1 - Chronic obstructive pulmonary disease with (acute) exacerbation SNOMED: 157715450 (3) Alcoholic cirrhosis ICD Codes: K70.30 - Alcoholic cirrhosis of liver without ascites SNOMED: 672791362 Assessment/Plan respiratory treatment check sputum titrate fio2 to sat of 92% oral theophyline iv steroids iv abx dvt prophylaxis Janey Kc MD September 16, 2017 11:59
[2017-09-16] MEDS ORDERED: Promethazine/Codeine 5ml UD ORAL PRN ×2 (12:30→13:30)
[2017-09-16] MEDS ORDERED: Solu-MEDROL 125mg Inj IV SCH (12:30)
[2017-09-16] MEDS ORDERED: Levalbuterol Inh UD 1.25mg/0.5ml HHN SCH (13:00)
--- NOTE | 2017-09-16 13:22 | Diagnostic Imaging Report ---
Indication: Shortness of breath Technique: One view of the chest Comparison: To 03/14/2018 Findings: Lungs and pleural spaces are clear. Heart size is normal. There is no significant change Impression: No acute process
[2017-09-16] MEDS ORDERED: Heparin 5000 units/ml inj SUBQ SCH (14:00)
[2017-09-16] MEDS: Albuterol/Ipratropium 3ml neb HHN SCH ×2 (14:10→20:02)
[2017-09-16] MEDS: Heparin 5000 units/ml inj SUBQ SCH ×2 (14:42→21:48)
[2017-09-16] MEDS: Solu-MEDROL 125mg Inj IV SCH (18:24)
[2017-09-16] MEDS: Theophylline ER 100mg ORAL SCH (20:50)
[2017-09-16] MEDS ORDERED: Latanoprost 0.005% Opth 2.5ml Soln BOTH EYES SCH ×2 (21:00)
[2017-09-16] MEDS ORDERED: Theophylline ER 100mg ORAL SCH (21:00)
--- NOTE | 2017-09-16 22:33 | Cardiology Report ---
APPROVED REPORT EKG Measurement Heart [id number] Sinus tachycardia Septal infarct, age undetermined Abnormal ECG
[2017-09-17] VITALS: BP 126/77
[2017-09-17] MEDS: Solu-MEDROL 125mg Inj IV SCH ×3 (00:13→13:14)
[2017-09-17] MEDS: Albuterol/Ipratropium 3ml neb HHN SCH ×3 (01:48→12:59)
[2017-09-17 04:00] VITALS: BP 133/72
[2017-09-17] MEDS: Heparin 5000 units/ml inj SUBQ SCH ×2 (05:21→13:16)
[2017-09-17 07:52] LABS: HEMATOCRIT 41.5 % (42.0-52.0); HEMOGLOBIN 13.6 G/DL (14.2-18.0); MEAN CORPUSCULAR VOLUME 79 FL (80-99); PLATELET COUNT 289 K/UL (150-450); RED BLOOD COUNT 5.26 M/UL (4.70-6.10); RED CELL DISTRIBUTION WIDTH 13.3 % (11.6-14.8)
[2017-09-17 08:00] VITALS: BP 116/72
[2017-09-17 08:00] LABS: ANION GAP 10 mmol/L (5-15); BLOOD UREA NITROGEN 13 mg/dL (7-18); CALCIUM 8.9 MG/DL (8.5-10.1); CARBON DIOXIDE 26 MMOL/L (21-32); CHLORIDE 100 MMOL/L (98-107); CREATININE 1.1 MG/DL (0.55-1.30); POTASSIUM 3.7 MMOL/L (3.5-5.1); SODIUM 136 MMOL/L (136-145)
[2017-09-17] MEDS: Theophylline ER 100mg ORAL SCH (08:33)
--- NOTE | 2017-09-17 08:52 | Nephrology Progress Note ---
Assessment/Plan Assessment/Plan 1. Acute On Chronic resp FL- COPD Exac - On Abx/Steroids and inhaler txs. Much improved - appreciate pulm assistance 2. Chronic Narcotic Dep- on Methadone 3. HTN- stable 4. DVT prophylaxsis with herpain sub q Subjective Date patient seen: September 17, 2017 Time patient seen: 08:49 ROS Limited/Unobtainable: No Respiratory: Reports: shortness of breath Allergies: Coded Allergies: No Known Allergies (Unverified , 10/01/16) All Systems: reviewed and negative except above Subjective Patient breathing much better Objective Last 24 Hour Vital Signs Date Time Temp Pulse Resp B/P (MAP) Pulse Ox O2 Delivery O2 Flow Rate FiO2 09/17/17 08:33 116/72 09/17/17 07:53 104 18 96 Nasal Cannula 2.0 28 09/17/17 07:53 96 Nasal Cannula 2.0 28 09/17/17 07:53 Nasal Cannula 2.0 28 09/17/17 06:40 Nasal Cannula 2.0 09/17/17 04:00 98.1 105 20 133/72 95 98.1 09/17/17 01:57 108 18 98 Nasal Cannula 2.0 09/17/17 01:47 102 20 95 Nasal Cannula 2.0 09/17/17 00:49 Nasal Cannula 2.0 09/17/17 00:00 98.2 102 18 126/77 92 98.2 09/16/17 20:38 Nasal Cannula 2.0 09/16/17 20:12 104 18 98 Nasal Cannula 2.0 09/16/17 20:09 103 20 98 Nasal Cannula 2.0 09/16/17 20:05 97.5 99 18 125/72 96 97.5 09/16/17 20:02 103 20 94 Nasal Cannula 2.0 28 09/16/17 20:02 95 Nasal Cannula 2.0 28 09/16/17 20:02 Nasal Cannula 2.0 28 09/16/17 20:02 103 20 94 Nasal Cannula 2.0 28 09/16/17 16:00 98.0 106 20 123/73 98 Nasal Cannula 2.0 98.0 09/16/17 13:38 112 18 100 Nasal Cannula 2.0 28 09/16/17 13:33 104 18 97 Nasal Cannula 2.0 09/16/17 13:28 110 22 98 Nasal Cannula 2.0 28 09/16/17 13:28 102 18 95 Nasal Cannula 2.0 28 09/16/17 13:14 104 16 116/80 97 Nasal Cannula 2.0 09/16/17 12:00 97.7 105 16 124/72 97 Nasal Cannula 2.0 97.7 09/16/17 12:00 100 09/16/17 10:29 116 22 98 Nasal Cannula 2.0 28 09/16/17 09:47 112/65 Intake and Output 09/16/17 09/17/17 19:00 07:00 Intake Total 240 ml 375 ml Output Total 450 ml 1200 ml Balance -210 ml -825 ml Intake Oral 240 ml IV Total 375 ml Output Urine Total 450 ml 1200 ml # Voids 2 Laboratory Tests 09/17/17 05:45: White Blood Count 15.0H, Red Blood Count 5.26, Hemoglobin 13.6L, Hematocrit 41.5L, Mean Corpuscular Volume 79L, Mean Corpuscular Hemoglobin 25.9L, Mean Corpuscular Hemoglobin Concent 32.9, Red Cell Distribution Width 13.3, Platelet Count 289, Mean Platelet Volume 6.7, Neutrophils (%) (Auto) , Lymphocytes (%) ( Auto) , Monocytes (%) (Auto) , Eosinophils (%) (Auto) , Basophils (%) (Auto) , Neutrophils % (Manual) [Pending], Lymphocytes % (Manual) [Pending], Platelet Estimate [Pending], Platelet Morphology [Pending], Sodium Level 136, Potassium Level 3.7, Chloride Level 100, Carbon Dioxide Level 26, Anion Gap 10, Blood Urea Nitrogen 13, Creatinine 1.1, Estimat Glomerular Filtration Rate > 60, Glucose Level 170H, Calcium Level 8.9 Height (Feet): 5 Height (Inches): 6.00 Weight (Pounds): 170 General Appearance: WD/WN, no apparent distress EENT: PERRL/EOMI, normal ENT inspection Neck: normal alignment, supple Cardiovascular: normal rate, regular rhythm Respiratory/Chest: expiratory wheezing Abdomen: non tender, soft Edema: no edema noted Arm (L), no edema noted Arm (R), no edema noted Leg (L), no edema noted Leg (R), no edema noted Pedal (L), no edema noted Pedal (R), no edema noted Generalized Tod Ignacio M.D. September 17, 2017 08:52
[2017-09-17] MEDS ORDERED: hydroCHLOROthiazide 12.5mg TAB ORAL SCH (09:00)
[2017-09-17] MEDS ORDERED: Aspirin Baby 81mg ORAL SCH (09:00)
[2017-09-17] MEDS ORDERED: Lisinopril 10mg tab ORAL SCH (09:00)
[2017-09-17 12:00] VITALS: BP 138/81
--- NOTE | 2017-09-17 13:20 | Pulmonology Progress Note ---
Assessment/Plan Problems: (1) Respiratory failure, acute and chronic (2) COPD with exacerbation (3) Alcoholic cirrhosis Assessment/Plan improving respiratory rx dc home with current meds Subjective ROS Limited/Unobtainable: No Constitutional: Reports: no symptoms HEENT: Repors: no symptoms Allergies: Coded Allergies: No Known Allergies (Unverified , 10/01/16) Objective Last 24 Hour Vital Signs Date Time Temp Pulse Resp B/P (MAP) Pulse Ox O2 Delivery O2 Flow Rate FiO2 09/17/17 12:59 112 18 96 Nasal Cannula 2.0 28 09/17/17 12:00 95.6 102 18 138/81 97 95.6 09/17/17 08:33 116/72 09/17/17 08:02 106 20 99 Nasal Cannula 2.0 28 09/17/17 08:00 98.4 102 20 116/72 97 98.4 09/17/17 07:53 104 18 96 Nasal Cannula 2.0 09/17/17 07:53 96 Nasal Cannula 2.0 09/17/17 07:53 Nasal Cannula 2.0 28 09/17/17 06:40 Nasal Cannula 2.0 09/17/17 04:00 98.1 105 20 133/72 95 98.1 09/17/17 01:57 108 18 98 Nasal Cannula 2.0 09/17/17 01:47 102 20 95 Nasal Cannula 2.0 09/17/17 00:49 Nasal Cannula 2.0 09/17/17 00:00 98.2 102 18 126/77 92 98.2 09/16/17 20:38 Nasal Cannula 2.0 09/16/17 20:12 104 18 98 Nasal Cannula 2.0 28 09/16/17 20:09 103 20 98 Nasal Cannula 2.0 28 09/16/17 20:05 97.5 99 18 125/72 96 97.5 09/16/17 20:02 103 20 94 Nasal Cannula 2.0 28 09/16/17 20:02 95 Nasal Cannula 2.0 28 09/16/17 20:02 Nasal Cannula 2.0 28 09/16/17 20:02 103 20 94 Nasal Cannula 2.0 28 09/16/17 16:00 98.0 106 20 123/73 98 Nasal Cannula 2.0 98.0 09/16/17 13:38 112 18 100 Nasal Cannula 2.0 28 09/16/17 13:33 104 18 97 Nasal Cannula 2.0 28 09/16/17 13:28 110 22 98 Nasal Cannula 2.0 28 09/16/17 13:28 102 18 95 Nasal Cannula 2.0 28 Intake and Output 09/16/17 09/17/17 19:00 07:00 Intake Total 240 ml 375 ml Output Total 450 ml 1200 ml Balance -210 ml -825 ml Intake Oral 240 ml IV Total 375 ml Output Urine Total 450 ml 1200 ml # Voids 2 General Appearance: WD/WN HEENT: normocephalic, anicteric Respiratory/Chest: decreased breath sounds Cardiovascular: normal peripheral pulses, normal rate Abdomen: normal bowel sounds, soft, non tender, non distended Genitourinary: normal external genitalia Extremities: no clubbing 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, no motor/sensory deficits Laboratory Tests 09/17/17 05:45: White Blood Count 15.0H, Red Blood Count 5.26, Hemoglobin 13.6L, Hematocrit 41.5L, Mean Corpuscular Volume 79L, Mean Corpuscular Hemoglobin 25.9L, Mean Corpuscular Hemoglobin Concent 32.9, Red Cell Distribution Width 13.3, Platelet Count 289, Mean Platelet Volume 6.7, Neutrophils (%) (Auto) , Lymphocytes (%) ( Auto) , Monocytes (%) (Auto) , Eosinophils (%) (Auto) , Basophils (%) (Auto) , Differential Total Cells Counted 100, Neutrophils % (Manual) 87H, Lymphocytes % (Manual) 9L, Monocytes % (Manual) 4, Eosinophils % (Manual) 0, Basophils % ( Manual) 0, Band Neutrophils 0, Platelet Estimate Adequate, Platelet Morphology Normal, Anisocytosis 1+, Sodium Level 136, Potassium Level 3.7, Chloride Level 100, Carbon Dioxide Level 26, Anion Gap 10, Blood Urea Nitrogen 13, Creatinine 1.1, Estimat Glomerular Filtration Rate > 60, Glucose Level 170H, Calcium Level 8.9 Current Medications Medications (Trade) Dose Ordered Sig/Thom Route PRN Reason Start Time Stop Time Status Last Admin Dose Admin Albuterol Sulfate (Proventil) 2.5 mg Q12H PRN HHN Shortness of Breath 09/16/17 13:30 09/21/17 13:29 Albuterol/ Ipratropium (Albuterol/ Ipratropium) 3 ml Q6HRT HHN 09/16/17 13:00 09/21/17 12:59 09/17/17 12:59 Aspirin (ASA) 81 mg DAILY ORAL 09/17/17 09:00 10/16/17 08:59 09/17/17 08:33 Dextrose (Dextrose 50%) 25 ml STAT PRN IV Hypoglycemia 09/16/17 13:30 10/16/17 13:29 Dextrose (Dextrose 50%) 50 ml STAT PRN IV Hypoglycemia 09/16/17 13:30 10/16/17 13:29 Heparin Sodium (Porcine) (Heparin 5000 units/ml) 5,000 units EVERY 8 HOURS SUBQ 09/16/17 14:30 10/16/17 14:29 09/17/17 13:16 Hydrochlorothiazide (Hydrodiuril) 12.5 mg DAILY ORAL 09/17/17 09:00 10/16/17 08:59 09/17/17 08:33 Latanoprost (Xalatan) 1 drop BEDTIME BOTH EYES 09/16/17 21:00 10/16/17 20:59 09/16/17 21:45 Levofloxacin 100 ml @ 100 mls/hr Q24H IVPB 09/16/17 14:00 09/23/17 13:59 09/17/17 13:15 Lisinopril (Zestril) 10 mg DAILY ORAL 09/17/17 09:00 10/16/17 08:59 09/17/17 08:33 Methadone HCl (Methadone HCl) 80 mg DAILY ORAL 09/17/17 09:00 09/23/17 08:59 09/17/17 08:34 Methylprednisolone Sodium Succinate (Solu-MEDROL) 60 mg EVERY 6 HOURS IV 09/16/17 18:00 10/16/17 12:29 09/17/17 13:14 Multivitamins (Multivitamins) 1 tab DAILY ORAL 09/17/17 09:00 10/16/17 08:59 09/17/17 08:33 Promethazine HCl/ Codeine (Phenergan with Codeine) 5 ml Q4H PRN ORAL For Cough 09/16/17 13:30 10/16/17 13:29 Sodium Chloride 1,000 ml @ 75 mls/hr [id number] IVLG 09/16/17 13:30 10/16/17 13:29 09/17/17 05:20 Theophylline ([place]) 100 mg EVERY 12 HOURS ORAL 09/16/17 21:00 10/16/17 20:59 09/17/17 08:33 Janey Kc MD September 17, 2017 13:19
--- NOTE | 2017-09-18 08:09 | Discharge Summary ---
Discharge Summary Discharge Summary _ DATE OF ADMISSION: 09/16/2017 DATE OF DISCHARGE: 09/17/2017 REASON FOR ADMISSION: 71 years old male with history of COPD, former smoker, history of intravenous drug abuse, chronic hypoxemia, oxygen dependent, hypertension, chronic pain syndrome, opiate dependent, called paramedics due to shortness of breath. He used inhalers without relief. Paramedics found him in respiratory distress with pulse oximetry 60% on room air. Patient was placed on oxygen, given breathing treatment , oxygenation improved. Patient denied fever or chills. Patient denied smoking history for the last few years along with drug use. Patient denied chest pain. Upon evaluation patient was found to be tachycardic. Afebrile. No leukocytosis. Hemoglobin 12.7 hematocrit 39.4. Troponin negative. Pro BNP 23. EKG revealed sinus tachycardia, no PVC, no ectopy, no acute ischemic changes. Chest x-ray revealed no acute cardiopulmonary pathology. Patient was given loading dose of intravenous steroids along with nebulizing treatment. Patient was on supplemental oxygen. Patient was admitted for further management with diagnosis of COPD exacerbation , respiratory failure acute and chronic. CONSULTANTS: pulmonary Dr. Kc [facility] COURSE: Patient admitted. Patient was on supplemental oxygen, titrated to keep pulse oximetry above 92%. Pulmonary toilet with hand-held nebulizing around the clock and as needed provided. Patient was on IV steroids. Trial of theophylline started. Patient started on empiric antibiotic. Antitussive provided as needed. DVT prophylaxis provided. Home medications resumed, including antihypertensive medications. Blood pressure stable. inhibitor and Aspirin continued. Patient with chronic pain syndrome and opioid dependency. Patient on daily methadone dosing, which was continued. Patient condition improved. Patient has oxygen at home . Patient had inhalers at home. Patient was counseled on on further abstinence from smoking and illicit drug use. Patient was counseled on compliance with medication regimen.. Patient was stable for discharge. Due to the rapid and unexpected improvement in patient's condition, patient was discharged in one day. FINAL DIAGNOSES: Respiratory failure,acute and chronic COPD with exacerbation Hypertension Chronic pain syndrome Opioid dependency DISCHARGE MEDICATIONS: See Medication Reconciliation list. DISCHARGE INSTRUCTIONS: Patient was discharged home. Follow up with her primary care provider in one week. Patient was encouraged to comply with medication regimen. I have been assigned to dictate discharge summary for this account. I was not involved in the patient's management. Arti Fox NP September 18, 2017 08:09
--- NOTE | 2017-09-18 23:15 | Discharge Summary ---
DATE OF ADMISSION: 09/16/2017 DATE OF DISCHARGE: 09/17/2017 REASON FOR ADMISSION: 1. Shortness of breath. 2. Chronic obstructive pulmonary disease exacerbation. HOSPITAL COURSE: The patient is a pleasant 71-year-old gentleman, who was admitted on 09/16/2017 for evaluation of shortness of breath. He does have underlying chronic obstructive pulmonary disease and long history of tobacco and intravenous drug use. He has since discontinued all tobacco and intravenous drug use. He presented with shortness of breath that had started over the last three or four days. During his hospitalization, the patient was started on p.o. antibiotic, IV steroids, and inhaler therapy. He did remarkably well then the next day, he was feeling as if he was back to baseline. His breathing had improved. Pulmonary had evaluated the patient and made recommendations and the patient was stable for discharge on 09/17/2017. DISCHARGE DISPOSITION: Stable. CONSULTANTS: Janey Kc M.D., Pulmonary Critical Care. FOLLOWUP POST DISCHARGE: 1. The patient to follow up with his primary care physician in 1 to 2 weeks. 2. The patient to follow up with Pulmonary in one to two weeks. DISCHARGE MEDICATIONS: 1. The patient to continue pulmonary medications as per their discussion. 2. The patient to continue his home medications and follow up with his primary care physician. DISCHARGE DIAGNOSES: 1. Chronic obstructive pulmonary disease exacerbation. 2. Shortness of breath. The patient was discharged in stable condition on 09/17/2017 and is to follow up in 1 to 2 weeks with his primary care physician and otolaryngology nurse. Tod Ignacio MD DR: APOLLO JOB#: [id number] CC:
== END 2017-09-17 17:24 | disposition home or self-care (01) | DRG 140 ==
LOC: EDBD 04:16 → EMR 04:43 → 2W 05:30 → EDBEDREQ 05:55 → 4W 12:51
DX: J44.1 Chronic obstructive pulmonary disease with (acute) exacerbation (principal); J96.21 Acute and chronic respiratory failure with hypoxia; K70.30 Alcoholic cirrhosis of liver without ascites; Z99.81 Dependence on supplemental oxygen; Z87.891 Personal history of nicotine dependence; I10 Essential (primary) hypertension; G89.4 Chronic pain syndrome; Z79.891 Long term (current) use of opiate analgesic
CPT/HCPCS: 36415; 71045; 80048; 80053; 82550; 82553; 83880; 84484; 85007; 85025; 93005; 94640; 94664; 94760; 99285; 99291; J7620

== ENCOUNTER 2019-02-05 23:59 | Inpatient (IN) | payer MEDICARE, MEDICAID ==
[~2019-02-05] VITALS: Ht 170.2 cm; Wt 70.3 kg
[~2019-02-05 23:59] MED LIST changes: +LISINOPRIL10 MG ORAL
[2019-02-06] VITALS (7 sets, daily range): BP systolic 118–140; BP diastolic 67–84
--- NOTE | 2019-02-06 | NUR ---
ED Nurse Note: Patient brought in by RA due to respiratory distress x 3-4 days ago and got worsen today. Breathing tx was given upon arrival. Bilateral wheezes noted. Has hx of COPD and emphysema. Alert and oriented, verbally responsive. Afebrile.
--- NOTE | 2019-02-06 00:10 | NUR ---
ED Nurse Note: Breathing tx at bedside c/o RT.
[2019-02-06] MEDS ORDERED: Ipratropium 0.02% Inh Soln 2.5ml UD HHN ONE (00:15)
[2019-02-06] MEDS ORDERED: Albuterol ud Inhalation HHN ONE (00:15)
[2019-02-06] MEDS ORDERED: Solu-MEDROL 125mg Inj IVP ONE (00:15)
--- NOTE | 2019-02-06 00:25 | NUR ---
ED Nurse Note: Xray at bedside.
--- NOTE | 2019-02-06 00:39 | Emergency Room Report ---
History of Present Illness General Chief Complaint: Dyspnea/Respdistress Source: Patient, Medical Record, EMS Present Illness HPI This is a 73-year-old male with a history of COPD. Also long-standing history of smoking and IV drug abuse. Said that he quit in [id number]. He presents with chief complaint of respiratory distress and shortness of breath. Onset for last 4 days. Worsened today. Call 911 because he could not breathe and his inhalers not helping. EMS said he was hypoxic and gave him breathing treatment and oxygen. Better now. No chest pain. Coughing but nonproductive nature. No fever chills but no nausea no vomiting. No diarrhea. Worse with exertion. Better with breathing treatment. Allergies: Coded Allergies: No Known Allergies (Unverified , 10/01/16) Patient History Past Medical History: see triage record, old chart reviewed, COPD Past Surgical History: none Pertinent Family History: none Social History: Reports: smoking - quit 2010, , drug use - quit 2010 Immunizations: other Reviewed Nursing Documentation: PMH: Agreed; PSxH: Agreed Nursing Documentation-PMH Hx Cardiac Problems: Yes Hx Hypertension: Yes Hx Asthma: Yes Hx COPD: Yes Hx Cancer: No Hx Gastrointestinal Problems: No Hx Neurological Problems: No Review of Systems Eye: Denies: eye pain, blurred vision ENT: Denies: ear pain, nose congestion, throat swelling Respiratory: Reports: cough, shortness of breath Cardiovascular: Denies: chest pain, palpitations Gastrointestinal: Denies: abdominal pain, diarrhea, nausea, vomiting Musculoskeletal: Denies: back pain, joint pain Skin: Denies: rash Neurological: Denies: headache, numbness Endocrine: Denies: increased thirst, increased urine Hematologic/Lymphatic: Denies: easy bruising All Other Systems: negative except mentioned in HPI Physical Exam Vital Signs Date Time Temp Pulse Resp B/P (MAP) Pulse Ox O2 Delivery O2 Flow Rate FiO2 02/05/19 23:56 97 24 137/82 (100) 97 Simple Mask 6.0 02/06/19 00:00 98.5 Vitals unremarkable Sp02 EP Interpretation: reviewed, abnormal General Appearance: well appearing, alert, moderate distress Head: normocephalic, atraumatic Eyes: bilateral eye PERRL, bilateral eye EOMI ENT: hearing grossly normal, normal pharynx Neck: full range of motion, supple, no meningismus Respiratory: chest non-tender, normal breath sounds, respiratory distress, decreased breath sounds, wheezing Cardiovascular #1: regular rate, rhythm, no murmur Gastrointestinal: normal bowel sounds, non tender, no mass, no organomegaly, no bruit, non-distended Musculoskeletal: back normal, gait/station normal, normal range of motion Psychiatric: mood/affect normal Medical Decision Making Diagnostic Impression: Primary Impression: COPD with exacerbation Additional Impression: Respiratory distress ER Course Patient presents with respiratory distress with acute on chronic respiratory failure. He was initially on BiPAP and was able to wean off of it. He said he felt much better now. No evidence of CHF, ACS, PE, dissection to name a few. Will admit for further work-up. I discussed the case with Dr. Mojica for admission. Lab Results Impression Labs unremarkable EKG Diagnostic Results Rate: normal Rhythm: NSR ST Segments: other - NSST changes Rhythm Strip Diag. Results EP Interpretation: yes Rate: 97 Rhythm: NSR, no PVC's, no ectopy Chest X-Ray Diagnostic Results Chest X-Ray Diagnostic Results : Chest X-Ray Ordered: Yes # of Views/Limited/Complete: 1 View Indication: Shortness of Breath EP Interpretation: Yes Interpretation: no consolidation, no effusion, no pneumothorax Impression: No acute disease Electronically Signed by: Chidi Mosqueda MD Last Vital Signs Date Time Temp Pulse Resp B/P (MAP) Pulse Ox O2 Delivery O2 Flow Rate FiO2 02/06/19 00:00 98.5 95 19 118/67 99 Bi-pap 6.0 Status: improved Disposition: ADMITTED INPATIENT Condition: Serious Referrals: NON PHYSICIAN (PCP) Chidi Mosqueda MD Feb 06, 2019 00:39
[2019-02-06 01:02] LABS: BASOPHILS % (AUTO) 1.7 % (0.0-2.0); EOSINOPHILS % (AUTO) 1.5 % (0.0-3.0); HEMOGLOBIN 14.8 G/DL (14.2-18.0); LYMPHOCYTES % (AUTO) 17.1 % (20.0-45.0); MEAN CORPUSCULAR VOLUME 83 FL (80-99); MONOCYTES % (AUTO) 9.1 % (1.0-10.0); NEUTROPHILS % (AUTO) 70.6 % (45.0-75.0); PLATELET COUNT 178 K/UL (150-450); RED BLOOD COUNT 5.45 M/UL (4.70-6.10); RED CELL DISTRIBUTION WIDTH 13.8 % (11.6-14.8); WHITE BLOOD COUNT 10.1 K/UL (4.8-10.8)
[2019-02-06 01:16] LABS: ANION GAP 1 mmol/L (5-15); BLOOD UREA NITROGEN 11 mg/dL (7-18); CALCIUM 9.3 MG/DL (8.5-10.1); CARBON DIOXIDE 37 MMOL/L (21-32); CHLORIDE 99 MMOL/L (98-107); CREATININE 0.9 MG/DL (0.55-1.30); POTASSIUM 3.6 MMOL/L (3.5-5.1); SODIUM 137 MMOL/L (136-145)
[2019-02-06 01:32] LABS: ALANINE AMINOTRANSFERASE 19 U/L (12-78); ALBUMIN 3.7 G/DL (3.4-5.0); ALBUMIN/GLOBULIN RATIO 0.8 (1.0-2.7); ALKALINE PHOSPHATASE 73 U/L (46-116); ASPARTATE AMINO TRANSFERASE 25 U/L (15-37); BILIRUBIN,TOTAL 0.3 MG/DL (0.2-1.0); CKMB 1.2 NG/ML (0.0-3.6); CREATINE KINASE 261 U/L (26-308)
[2019-02-06 01:54] LABS: APPEARANCE,URINE CLEAR; BILIRUBIN, URINE NEGATIVE (NEGATIVE); COLOR,URINE PALE YELLOW; GLUCOSE, URINE (UA) 1+ (NEGATIVE); KETONES,URINE NEGATIVE (NEGATIVE); LEUKOCYTE ESTERASE ,URINE NEGATIVE (NEGATIVE); NITRITE,URINE NEGATIVE (NEGATIVE); PH,URINE 6.5 (4.5-8.0); PROTEIN,URINE NEGATIVE (NEGATIVE); UROBILINOGEN,URINE NORMAL MG/DL (0.0-1.0)
--- NOTE | 2019-02-06 02:36 | NUR ---
ED Nurse Note: Report given to Sandy FLORES from Med surg.
--- NOTE | 2019-02-06 02:45 | NUR ---
NURSE NOTES: Received report from BARBARA Rebollar RN. Patient admitted to 3E room 308-1. Patient alert, oriented x4, no shortness of breath at this time. O2Sat 96% on O2 2L NC. Denies any pain. Oriented to room and unit routines, safety measures explained. Bed in low position, locked, side rails up x2, call light within reach. Encouraged to call as needed.
--- NOTE | 2019-02-06 02:46 | NUR ---
TRANSFER TO FLOOR: Patient transferred to Med surg unit. Report given to Sandy FLORES. Pt is alert, oriented and verbally responsive. No SOB. Breathing even and unlabored. Afebrile. On O2 tx @ 2L/min via nc. 95% saturation. IV line on left forearm 22g patent and intact. Belongings list done. Med recon done. All belongings was given to the patient. Family member aware of the transfer.
--- NOTE | 2019-02-06 03:30 | NUR ---
NURSE NOTES: Placed call to Dr Mojica for admitting orders, left message with exchange.
--- NOTE | 2019-02-06 06:50 | NUR ---
NURSE NOTES: Heplock on L hand came out, applied dressing, some bleeding on bedding, changed. Other heplock in LFA is intact and patent.
[2019-02-06] MEDS ORDERED: Morphine Sulfate 2mg/ml Inj(IV/IM USE ONLY) IVP PRN (07:15)
[2019-02-06] MEDS ORDERED: LORazepam Inj 2mg/ml 1ml IV PRN (07:15)
[2019-02-06] MEDS ORDERED: Nitroglycerin Subl 0.4mg tab SL PRN (07:15)
--- NOTE | 2019-02-06 07:15 | NUR ---
NURSE NOTES: Placed call to Dr Mojica for admitting orders, left message with exchange.
--- NOTE | 2019-02-06 07:20 | NUR ---
HAND-OFF: Report given to SANDRA Tijerina.
--- NOTE | 2019-02-06 08:06 | NUR ---
NURSE NOTES: Received pt in bed, AAO x 4. On nasal canula 2L/min. No c/o of sob/pain. IV on L FA 22g intact and patent, with saline lock. Side rails x 2. Bed in the lowest, locked, and alarm on. Call light within reach. Will continue to monitor
[2019-02-06] MEDS: Solu-MEDROL 125mg Inj IV SCH ×3 (09:23→20:49)
[2019-02-06] MEDS: Theophylline ER 100mg ORAL SCH ×2 (09:24→20:48)
[2019-02-06] MEDS: Lisinopril 10mg tab ORAL SCH (09:24)
[2019-02-06] MEDS: Heparin 5000 units/ml inj SUBQ SCH ×2 (09:25→20:50)
--- NOTE | 2019-02-06 11:09 | Diagnostic Imaging Report ---
Indication: Shortness of breath Technique: One view of the chest Comparison: 09/16/2017 Findings: There is blunting of the left costophrenic sulcus, could indicate a small pleural effusion. The lungs and pleural spaces are otherwise clear. [place] and other external metallic objects overlie the heart, could obscure pathology Impression: Possible small left pleural effusion No definite acute process otherwise
--- NOTE | 2019-02-06 11:50 | NUR ---
*-* INSURANCE *-* ALL AVAILABLE CLINICALS HAVE BEEN FAXED TO: [facility]#[id number] No CM Yet PH#[phone] FAX#[phone]
--- NOTE | 2019-02-06 12:49 | NUR ---
NURSE NOTES: Got a call from [facility] that they will be discharging patient from their system for the patient was admitted at [facility] due to billing issues.
--- NOTE | 2019-02-06 13:00 | Consultation ---
History of Present Illness General Date patient seen: Feb 06, 2019 Chief Complaint: Dyspnea/Respdistress Present Illness HPI 73-year-old male with a history of COPD, emphysema secondary to 40 years of smoking and IV drug abuse, on Methadone presented to ER with complaint of shortness of breath for the last 4 days. He called 911 because he could not breathe and his inhalers not helping. He has been coughing but nonproductive nature. He is admitted for further management. Allergies: Coded Allergies: No Known Allergies (Unverified , 10/01/16) Medication History Scheduled Aspirin* (Aspirin*), 81 MG ORAL DAILY, (Reported) Hydrochlorothiazide* (Hydrochlorothiazide*), 12.5 MG ORAL DAILY, (Reported) Latanoprost* (Xalatan*), 2 DROP BOTH EYES BEDTIME, (Reported) Lisinopril* (Lisinopril*), 10 MG ORAL DAILY, (Reported) Methadone Hcl* (Methadone*), 80 MG PO DAILY, (Reported) Multivitamins* (Multivitamins*), 1 TAB ORAL DAILY, (Reported) Salmeterol Xinafoate (Serevent Diskus), 2 PUFFS INH NEEDED, (Reported) Tiotropium [place]* (Spiriva*), 1 PUFF INH DAILY, (Reported) Scheduled PRN Albuterol Sulfate* (Albuterol Sulfate Hhn*), 2.5 MG HHN Q4H PRN for Shortness of Breath Discontinued Medications Lisinopril (Lisinopril*), 5 MG ORAL DAILY, (Reported) Discontinued Reason: Therapy completed Patient History Healthcare decision maker Resuscitation status Full Code Advanced Directive on File Past Medical/Surgical History Past Medical/Surgical History: (1) COPD (chronic obstructive pulmonary disease) (2) Methadone maintenance therapy patient (3) Emphysema lung Review of Systems All Other Systems: negative except mentioned in HPI Physical Exam General Appearance: cachetic, thin Lines, tubes and drains: peripheral HEENT: normocephalic, atraumatic Neck: non-tender, normal alignment, limited range of motion Respiratory/Chest: chest wall non-tender, rhonchi - left, rhonchi - right Cardiovascular/Chest: normal peripheral pulses, normal rate Abdomen: normal bowel sounds, non tender Genitourinary/Rectal: normal genital exam, normal rectal exam Extremities: normal range of motion, non-tender Skin Exam: normal pigmentation Last 24 Hour Vital Signs Date Time Temp Pulse Resp B/P (MAP) Pulse Ox O2 Delivery O2 Flow Rate FiO2 02/06/19 12:00 98.6 83 18 136/74 (94) 95 02/06/19 09:24 128/84 02/06/19 09:00 Room Air 2.0 02/06/19 08:00 98.9 86 21 128/84 (99) 89 02/06/19 04:00 98.1 81 18 139/74 (95) 96 02/06/19 03:30 Nasal Cannula 2.0 02/06/19 03:10 95 2.0 28 02/06/19 02:46 98.6 77 16 128/70 95 Nasal Cannula 2.0 40 02/06/19 02:13 98.6 77 16 128/70 95 Nasal Cannula 2.0 40 02/06/19 00:36 102 22 94 Facial 40 106 22 98 Bi-Pap 40 02/06/19 00:34 102 20 92 Bi-Pap 40 02/06/19 00:00 98.5 95 19 118/67 99 Bi-pap 6.0 02/06/19 00:00 97 24 Simple Mask 6.0 02/05/19 23:56 97 24 137/82 (100) 97 Simple Mask 6.0 Intake and Output 02/05/19 02/06/19 19:00 07:00 Output Total 400 ml Balance -400 ml Output Urine Total 400 ml # Voids 3 Laboratory Tests Test 02/06/19 00:39 02/06/19 00:55 02/06/19 01:47 White Blood Count 10.1 K/UL (4.8-10.8) Red Blood Count 5.45 M/UL (4.70-6.10) Hemoglobin 14.8 G/DL (14.2-18.0) Hematocrit 45.0 % (42.0-52.0) Mean Corpuscular Volume 83 FL (80-99) Mean Corpuscular Hemoglobin 27.2 PG (27.0-31.0) Mean Corpuscular Hemoglobin Concent 32.9 G/DL (32.0-36.0) Red Cell Distribution Width 13.8 % (11.6-14.8) Platelet Count 178 K/UL (150-450) Mean Platelet Volume 7.9 FL (6.5-10.1) Neutrophils (%) (Auto) 70.6 % (45.0-75.0) Lymphocytes (%) (Auto) 17.1 % (20.0-45.0) L Monocytes (%) (Auto) 9.1 % (1.0-10.0) Eosinophils (%) (Auto) 1.5 % (0.0-3.0) Basophils (%) (Auto) 1.7 % (0.0-2.0) Sodium Level 137 MMOL/L (136-145) Potassium Level 3.6 MMOL/L (3.5-5.1) Chloride Level 99 MMOL/L (98-107) Carbon Dioxide Level 37 MMOL/L (21-32) H Anion Gap 1 mmol/L (5-15) L Blood Urea Nitrogen 11 mg/dL (7-18) Creatinine 0.9 MG/DL (0.55-1.30) Estimat Glomerular Filtration Rate mL/min (>60) Glucose Level 118 MG/DL (74-106) H Calcium Level 9.3 MG/DL (8.5-10.1) Total Bilirubin 0.3 MG/DL (0.2-1.0) Aspartate Amino Transf (AST/SGOT) 25 U/L (15-37) Alanine Aminotransferase (ALT/SGPT) 19 U/L (12-78) Alkaline Phosphatase 73 U/L (46-116) Total Creatine Kinase 261 U/L (26-308) Creatine Kinase MB 1.2 NG/ML (0.0-3.6) Creatine Kinase MB Relative Index 0.4 Troponin I 0.000 ng/mL (0.000-0.056) Pro-B-Type Natriuretic Peptide 94 pg/mL (0-125) Total Protein 8.3 G/DL (6.4-8.2) H Albumin 3.7 G/DL (3.4-5.0) Globulin 4.6 g/dL Albumin/Globulin Ratio 0.8 (1.0-2.7) L Lactic Acid Level 1.00 mmol/L (0.4-2.0) Urine Color Pale yellow Urine Appearance Clear Urine pH 6.5 (4.5-8.0) Urine Specific [place] 1.010 (1.005-1.035) Urine Protein Negative (NEGATIVE) Urine Glucose (UA) 1+ (NEGATIVE) H Urine Ketones Negative (NEGATIVE) Urine Blood Negative (NEGATIVE) Urine Nitrite Negative (NEGATIVE) Urine Bilirubin Negative (NEGATIVE) Urine Urobilinogen Normal MG/DL (0.0-1.0) Urine Leukocyte Esterase Negative (NEGATIVE) Urine Opiates Screen Positive (NEGATIVE) H Urine Barbiturates Screen Negative (NEGATIVE) Phencyclidine (PCP) Screen Negative (NEGATIVE) Urine Amphetamines Screen Negative (NEGATIVE) Urine Benzodiazepines Screen Negative (NEGATIVE) Urine Cocaine Screen Negative (NEGATIVE) Urine Marijuana (THC) Screen Negative (NEGATIVE) Height (Feet): 5 Height (Inches): 7.00 Weight (Pounds): 166 Medications Current Medications Medications (Trade) Dose Ordered Sig/Thom Route PRN Reason Start Time Stop Time Status Last Admin Dose Admin Albuterol/ Ipratropium (Albuterol/ Ipratropium) 3 ml Q4H PRN HHN dyspnea 02/06/19 07:15 02/11/19 07:14 Dextrose (Dextrose 50%) 25 ml Q30M PRN IV Hypoglycemia 02/06/19 07:15 03/08/19 07:14 Dextrose (Dextrose 50%) 50 ml Q30M PRN IV Hypoglycemia 02/06/19 07:15 03/08/19 07:14 Heparin Sodium (Porcine) (Heparin 5000 units/ml) 5,000 units EVERY 12 HOURS SUBQ 02/06/19 09:00 03/08/19 08:59 02/06/19 09:25 Lisinopril (Zestril) 10 mg DAILY ORAL 02/06/19 09:00 03/08/19 08:59 02/06/19 09:24 Lorazepam (Ativan 2mg/ml 1ml) 0.5 mg Q4H PRN IV For Anxiety 02/06/19 07:15 02/13/19 07:14 Methadone HCl (Methadone HCl) 80 mg DAILY ORAL 02/06/19 10:00 02/13/19 09:59 02/06/19 09:28 Methylprednisolone Sodium Succinate (Solu-MEDROL) 60 mg EVERY 6 HOURS IV 02/06/19 07:45 03/08/19 07:44 02/06/19 12:26 Morphine Sulfate (Morphine Sulfate) 2 mg Q4H PRN IVP severe pain 7-10 02/06/19 07:15 02/13/19 07:14 Nitroglycerin (Ntg) 0.4 mg Q5M X 3 DOSES PRN SL Prn Chest Pain 02/06/19 07:15 03/08/19 07:14 Ondansetron HCl (Zofran) 4 mg Q6H PRN IVP Nausea & Vomiting 02/06/19 07:15 03/08/19 07:14 Piperacillin Sod/ Tazobactam Sod 3.375 gm/Sodium Chloride 110 ml @ 27.5 mls/hr EVERY 8 HOURS IVPB 02/06/19 14:00 02/11/19 13:59 Promethazine HCl/ Codeine (Phenergan with Codeine) 5 ml Q6H PRN ORAL cough 02/06/19 07:15 03/08/19 07:14 Temazepam (Restoril) 15 mg HSPRN PRN ORAL Insomnia 02/06/19 07:15 02/13/19 07:14 Theophylline ([place]) 100 mg EVERY 12 HOURS ORAL 02/06/19 09:00 03/08/19 08:59 02/06/19 09:24 Tiotropium [place] (Spiriva Inhaler) 1 puff DAILY INH 02/06/19 09:00 03/08/19 08:59 02/06/19 12:26 Assessment/Plan Problem List: (1) COPD with exacerbation ICD Codes: J44.1 - Chronic obstructive pulmonary disease with (acute) exacerbation SNOMED: 513237959 (2) Methadone maintenance therapy patient ICD Codes: F11.20 - Opioid dependence, uncomplicated SNOMED: 50368294, 061622337 (3) Emphysema lung ICD Codes: J43.9 - Emphysema, unspecified SNOMED: 28742016 Assessment/Plan: respiratory treatment iv steroids iv abx check sputum check electrolytes. Janey Kc MD Feb 06, 2019 13:00
[2019-02-06] MEDS: Zoysn 3.37gm in NS 100ML IVPB SCH ×2 (13:44→21:44)
[2019-02-06] MEDS ORDERED: Piperacillin/Tazobactam 2.25 GM in D5W 55 ML IV SCH (14:00)
--- NOTE | 2019-02-06 17:30 | History and Physical Report ---
DATE OF ADMISSION: 02/06/2019 TIME SEEN: 1 p.m. CONSULTANTS: Janey Kc M.D. CHIEF COMPLAINT: Shortness of breath, COPD exacerbation. BRIEF HISTORY: This is an 73-year-old male, who lives at home, presented with increased shortness of breath for 5 days. The patient came to [place] last night, diagnosed with exacerbation of COPD, admitted to medical floor for further treatment. Currently, calm, O2 NC, slight short of breath. No complaint. REVIEW OF SYSTEMS: No chest pain. Slight short of breath. No nausea, vomiting, or diarrhea. PAST MEDICAL HISTORY: Hypertension, COPD, methadone use, emphysema. PAST SURGICAL HISTORY: Right hip. MEDICATIONS: Hydrochlorothiazide, Xalatan, methylprednisone, timolol, albuterol, Zosyn, methadone, lisinopril, theophylline, lorazepam, morphine, temazepam. ALLERGIES: Denies. SOCIAL HISTORY: No smoking. Positive alcohol. Positive methadone use. OBJECTIVE: GENERAL: Calm in bed, slight short of breath, O2 NC in place. VITAL SIGNS: Temperature is 98 degrees, pulse 83, respirations 18, and blood pressure 136/74. CARDIOVASCULAR: No murmur. LUNGS: Poor air exchange. ABDOMEN: Bowel sounds distant. EXTREMITIES: No cyanosis, clubbing, or edema LABORATORY AND DIAGNOSTIC DATA: CBC is normal. BMP shows CO2 37, glucose 118. Troponin 0.00. Urinalysis 1+ glucose. Urine tox is positive for opiates. ASSESSMENT: 1. COPD exacerbation. 2. Hypertension. 3. Chronic pain. 4. Emphysema. PLAN: 1. Blood pressure and pain control. 2. Dietary follow. 3. O2 and pulmonary treatment. 4. PT, dietary evaluation. 5. CBC and BMP in the morning. Zac Mojica D.O. DR: Florentin JOB#: [id number] CC:
[2019-02-06] MEDS: Albuterol/Ipratropium 3ml neb HHN SCH (19:00)
--- NOTE | 2019-02-06 19:45 | NUR ---
NURSE NOTES: Receive a report from SANDRA Morrison. Round is done. Pt is awake and alert. No acute distress noted. No wheezing noted but noted diminished lung sound bilateral upon auscultation. Dyspnea occurs during ambulation. O2 2L/min NC. Urinal is within reach. Breathing treatment is on as scheduled. 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 Three eye drops are on schedule. Call light within reach. Will continue to monitor.
--- NOTE | 2019-02-06 19:48 | NUR ---
HAND-OFF: Report given to SANDRA Dumont.
[2019-02-06] MEDS: Albuterol/Ipratropium 3ml neb HHN PRN (20:12)
[2019-02-06] MEDS: Timoptic 0.25% Op Soln 2.5ml BOTH EYES SCH (20:52)
[2019-02-06] MEDS ORDERED: Latanoprost 0.005% Opth 2.5ml Soln BOTH EYES SCH (21:00)
[2019-02-06] MEDS: Brimonidine 0.2% Opth Sol BOTH EYES SCH (21:06)
[2019-02-06] MEDS: Latanoprost 0.005% Opth 2.5ml Soln BOTH EYES SCH (21:13)
--- NOTE | 2019-02-06 23:40 | NUR ---
NURSE NOTES: RT came and applied Bi-pap earlier but pt wants to take off Bi-pap d/t discomfort. Explain reasons to apply Bi-pap. Pt gets hungry. Provide sandwiches and will reapply when gets asleep. Call to RT and change to O2 2L NC. Spo2 remains 96-97%. Will continue to monitor.
[2019-02-07] VITALS: BP 118/65
[2019-02-07] MEDS: Albuterol/Ipratropium 3ml neb HHN SCH ×4 (01:27→19:50)
--- NOTE | 2019-02-07 01:30 | NUR ---
NURSE NOTES: Pt refuses to put on Bi-pap but wants to have breathing treatment. Explain benefits and risks. pt is aware of it but does not want to. Respect pt's right. Keep oxygen provide with NC. Spo2 maintains 95-96%. No wheezing noted. Will continue to monitor.
[2019-02-07 04:00] VITALS: BP 113/69
[2019-02-07] MEDS: Zoysn 3.37gm in NS 100ML IVPB SCH ×3 (05:37→21:43)
[2019-02-07 06:48] LABS: BASOPHILS % (AUTO) 0.4 % (0.0-2.0); EOSINOPHILS % (AUTO) 0.1 % (0.0-3.0); HEMATOCRIT 42.6 % (42.0-52.0); HEMOGLOBIN 14.1 G/DL (14.2-18.0); LYMPHOCYTES % (AUTO) 9.3 % (20.0-45.0); MEAN CORPUSCULAR VOLUME 83 FL (80-99); MONOCYTES % (AUTO) 6.2 % (1.0-10.0); PLATELET COUNT 182 K/UL (150-450); RED BLOOD COUNT 5.12 M/UL (4.70-6.10); WHITE BLOOD COUNT 17.1 K/UL (4.8-10.8)
[2019-02-07 07:09] LABS: ALANINE AMINOTRANSFERASE 19 U/L (12-78); ALBUMIN 3.4 G/DL (3.4-5.0); ALBUMIN/GLOBULIN RATIO 0.8 (1.0-2.7); ALKALINE PHOSPHATASE 71 U/L (46-116); ANION GAP 5 mmol/L (5-15); ASPARTATE AMINO TRANSFERASE 20 U/L (15-37); BILIRUBIN,TOTAL 0.2 MG/DL (0.2-1.0); BLOOD UREA NITROGEN 13 mg/dL (7-18); CALCIUM 9.3 MG/DL (8.5-10.1); CARBON DIOXIDE 31 MMOL/L (21-32); CHLORIDE 101 MMOL/L (98-107); CREATININE 0.9 MG/DL (0.55-1.30); PHOSPHORUS 2.5 MG/DL (2.5-4.9); POTASSIUM 3.8 MMOL/L (3.5-5.1); SODIUM 137 MMOL/L (136-145)
--- NOTE | 2019-02-07 07:30 | NUR ---
NURSE NOTES: Pt lying in bed w/bed in lowest position and call light within reach. Pt A&Ox4; VSS; on 2L NC; and in no apparent distress at this time. IV site intact/asymptomatic w/IVF infusing and skin intact. Pt has no complaints or concerns at this time. Will continue to monitor.
--- NOTE | 2019-02-07 07:30 | NUR ---
HAND-OFF: Report given to SANDRA Warner. Round is done. No acute distress noted.
[2019-02-07 08:00] VITALS: BP 104/65
[2019-02-07] MEDS: Heparin 5000 units/ml inj SUBQ SCH ×2 (09:09→21:43)
[2019-02-07] MEDS: Lisinopril 10mg tab ORAL SCH (09:10)
[2019-02-07] MEDS: hydroCHLOROthiazide 12.5mg TAB ORAL SCH (09:10)
[2019-02-07] MEDS: Theophylline ER 100mg ORAL SCH ×2 (09:10→21:39)
[2019-02-07] MEDS: Solu-MEDROL 125mg Inj IV SCH (09:10)
[2019-02-07] MEDS: Timoptic 0.25% Op Soln 2.5ml BOTH EYES SCH ×2 (09:11→17:52)
[2019-02-07] MEDS: Brimonidine 0.2% Opth Sol BOTH EYES SCH ×2 (09:11→17:52)
--- NOTE | 2019-02-07 09:25 | General Progress Note ---
Assessment/Plan Problem List: (1) Emphysema lung ICD Codes: J43.9 - Emphysema, unspecified SNOMED: 71380500 (2) Methadone maintenance therapy patient ICD Codes: F11.20 - Opioid dependence, uncomplicated SNOMED: 90973670, 960506204 (3) COPD (chronic obstructive pulmonary disease) ICD Codes: J44.9 - Chronic obstructive pulmonary disease, unspecified SNOMED: 72835149 (4) COPD with exacerbation ICD Codes: J44.1 - Chronic obstructive pulmonary disease with (acute) exacerbation SNOMED: 301640459 Status: unchanged Assessment/Plan: o2 pulm tx abx pt diet cbc bmp am Subjective Constitutional: Reports: weakness Respiratory: Reports: shortness of breath Allergies: Coded Allergies: No Known Allergies (Unverified , 10/01/16) All Systems: reviewed and negative except above Subjective o2nc calm Objective Last 24 Hour Vital Signs Date Time Temp Pulse Resp B/P (MAP) Pulse Ox O2 Delivery O2 Flow Rate FiO2 02/07/19 09:16 94 Nasal Cannula 2.0 28 02/07/19 09:16 96 18 99 Nasal Cannula 2.0 28 97 18 94 02/07/19 09:10 104/65 02/07/19 04:00 98.2 81 16 113/69 (84) 96 02/07/19 01:30 2.0 28 02/07/19 01:28 84 20 99 Nasal Cannula 2.0 28 80 18 98 02/07/19 00:00 97.9 87 18 118/65 (82) 97 02/06/19 22:00 84 16 97 Facial 28 02/06/19 21:00 Room Air 2.0 02/06/19 21:00 93 Nasal Cannula 2.0 28 02/06/19 20:14 97 20 98 Nasal Cannula 2.0 28 94 18 97 02/06/19 20:13 94 18 97 Nasal Cannula 2.0 28 02/06/19 20:00 98.2 96 18 140/77 (98) 92 02/06/19 16:00 97.2 112 21 124/78 (93) 97 02/06/19 12:00 98.6 83 18 136/74 (94) 95 Intake and Output 02/06/19 02/07/19 18:59 06:59 Intake Total 720 ml 250 ml Output Total 1500 ml 450 ml Balance -780 ml -200 ml Intake Oral 720 ml 250 ml Output Urine Total 1500 ml 450 ml # Voids 6 3 # Bowel Movements 1 Laboratory Tests 02/06/19 13:35: Arterial Blood pH 7.396, Arterial Blood Partial Pressure CO2 49.2H, Arterial Blood Partial Pressure O2 59.0L, Arterial Blood HCO3 29.5H, Arterial Blood Oxygen Saturation 90.8L, Arterial Blood Base Excess 3.6H, Christopher Test Positive 02/07/19 05:00: White Blood Count 17.1#H, Red Blood Count 5.12, Hemoglobin 14.1L, Hematocrit 42.6, Mean Corpuscular Volume 83, Mean Corpuscular Hemoglobin 27.5, Mean Corpuscular Hemoglobin Concent 33.1, Red Cell Distribution Width 14.0, Platelet Count 182, Mean Platelet Volume 7.6, Neutrophils (%) (Auto) 84.0H, Lymphocytes ( %) (Auto) 9.3L, Monocytes (%) (Auto) 6.2, Eosinophils (%) (Auto) 0.1, Basophils (%) (Auto) 0.4, Sodium Level 137, Potassium Level 3.8, Chloride Level 101, Carbon Dioxide Level 31, Anion Gap 5, Blood Urea Nitrogen 13, Creatinine 0.9, Estimat Glomerular Filtration Rate , Glucose Level 159H, Calcium Level 9.3, Phosphorus Level 2.5, Magnesium Level 2.3, Total Bilirubin 0.2, Aspartate Amino Transf (AST/SGOT) 20, Alanine Aminotransferase (ALT/SGPT) 19, Alkaline Phosphatase 71, Total Protein 7.7, Albumin 3.4, Globulin 4.3, Albumin/Globulin Ratio 0.8L Height (Feet): 5 Height (Inches): 7.00 Weight (Pounds): 155 General Appearance: lethargic EENT: normal ENT inspection Neck: normal alignment Cardiovascular: normal peripheral pulses, normal rate, regular rhythm Respiratory/Chest: chest wall non-tender, decreased breath sounds Abdomen: normal bowel sounds, non tender, soft Extremities: normal inspection Edema: no edema noted Arm (L), no edema noted Arm (R), no edema noted Leg (L), no edema noted Leg (R), no edema noted Pedal (L), no edema noted Pedal (R), no edema noted Generalized Neurologic: responsive, motor weakness Skin: normal pigmentation, warm/dry Zac Mojica DO Feb 07, 2019 09:25
--- NOTE | 2019-02-07 11:26 | NUR ---
P.T Note: P.T evaluation completed. Pt is alert, O x 4 , cooperative. Pt denied c/o pain however reports c/o fatigue and SOB. Pt is independent in all basic functional mobilities and gait/ambulation despite being limited by SOB upon exertion. Pt educated on energy conservation tech and proper breathing technique to incorporate during functional activities to minimize fatigue and SOB with good return demonstration. Pt is currently functioning independently and does not require skilled P.T services at this time. Nursing to notify P.T for any change in functional status warranting P.T reevaluation. Otherwise, DC P.T services. Thank you for this referral.
[2019-02-07 12:00] VITALS: BP 128/70
--- NOTE | 2019-02-07 12:42 | Pulmonology Progress Note ---
Assessment/Plan Problems: (1) COPD with exacerbation (2) Methadone maintenance therapy patient (3) Emphysema lung Assessment/Plan improving taper down steroids check sputum continue methadone dvt prophylaxis pt/ot Subjective ROS Limited/Unobtainable: No Constitutional: Reports: no symptoms HEENT: Repors: no symptoms Allergies: Coded Allergies: No Known Allergies (Unverified , 10/01/16) Objective Last 24 Hour Vital Signs Date Time Temp Pulse Resp B/P (MAP) Pulse Ox O2 Delivery O2 Flow Rate FiO2 02/07/19 12:00 98.8 82 20 128/70 (89) 94 02/07/19 09:17 97 18 94 Nasal Cannula 2.0 28 02/07/19 09:17 97 18 94 Nasal Cannula 2.0 28 02/07/19 09:16 94 Nasal Cannula 2.0 28 02/07/19 09:16 96 18 99 Nasal Cannula 2.0 28 97 18 94 02/07/19 09:10 104/65 02/07/19 09:00 Nasal Cannula 2.0 02/07/19 08:00 99.0 82 20 104/65 (78) 93 02/07/19 04:00 98.2 81 16 113/69 (84) 96 02/07/19 01:30 2.0 28 02/07/19 01:28 84 20 99 Nasal Cannula 2.0 28 80 18 98 02/07/19 00:00 97.9 87 18 118/65 (82) 97 02/06/19 22:00 84 16 97 Facial 28 02/06/19 21:00 Room Air 2.0 02/06/19 21:00 93 Nasal Cannula 2.0 28 02/06/19 20:14 97 20 98 Nasal Cannula 2.0 28 94 18 97 02/06/19 20:13 94 18 97 Nasal Cannula 2.0 28 02/06/19 20:00 98.2 96 18 140/77 (98) 92 02/06/19 16:00 97.2 112 21 124/78 (93) 97 Intake and Output 02/06/19 02/07/19 19:00 07:00 Intake Total 720 ml 250 ml Output Total 1500 ml 450 ml Balance -780 ml -200 ml Intake Oral 720 ml 250 ml Output Urine Total 1500 ml 450 ml # Voids 6 3 # Bowel Movements 1 General Appearance: WD/WN, no acute distress HEENT: normocephalic Respiratory/Chest: chest wall non-tender, lungs clear, normal breath sounds Cardiovascular: normal peripheral pulses, normal rate Genitourinary: normal external genitalia Extremities: no cyanosis Skin: no lesions Microbiology Date/Time Source Procedure Growth Status 02/06/19 00:40 Blood Blood Culture - Preliminary NO GROWTH AFTER 24 HOURS Resulted 02/06/19 00:25 Blood Blood Culture - Preliminary NO GROWTH AFTER 24 HOURS Resulted Laboratory Tests 02/06/19 13:35: Arterial Blood pH 7.396, Arterial Blood Partial Pressure CO2 49.2H, Arterial Blood Partial Pressure O2 59.0L, Arterial Blood HCO3 29.5H, Arterial Blood Oxygen Saturation 90.8L, Arterial Blood Base Excess 3.6H, Christopher Test Positive 02/07/19 05:00: White Blood Count 17.1#H, Red Blood Count 5.12, Hemoglobin 14.1L, Hematocrit 42.6, Mean Corpuscular Volume 83, Mean Corpuscular Hemoglobin 27.5, Mean Corpuscular Hemoglobin Concent 33.1, Red Cell Distribution Width 14.0, Platelet Count 182, Mean Platelet Volume 7.6, Neutrophils (%) (Auto) 84.0H, Lymphocytes ( %) (Auto) 9.3L, Monocytes (%) (Auto) 6.2, Eosinophils (%) (Auto) 0.1, Basophils (%) (Auto) 0.4, Sodium Level 137, Potassium Level 3.8, Chloride Level 101, Carbon Dioxide Level 31, Anion Gap 5, Blood Urea Nitrogen 13, Creatinine 0.9, Estimat Glomerular Filtration Rate , Glucose Level 159H, Calcium Level 9.3, Phosphorus Level 2.5, Magnesium Level 2.3, Total Bilirubin 0.2, Aspartate Amino Transf (AST/SGOT) 20, Alanine Aminotransferase (ALT/SGPT) 19, Alkaline Phosphatase 71, Total Protein 7.7, Albumin 3.4, Globulin 4.3, Albumin/Globulin Ratio 0.8L Current Medications Medications (Trade) Dose Ordered Sig/Thom Route PRN Reason Start Time Stop Time Status Last Admin Dose Admin Albuterol/ Ipratropium (Albuterol/ Ipratropium) 3 ml Q4H PRN HHN dyspnea 02/06/19 07:15 02/11/19 07:14 02/06/19 20:12 Albuterol/ Ipratropium (Albuterol/ Ipratropium) 3 ml Q6HRT HHN 02/06/19 19:00 02/11/19 18:59 02/07/19 09:16 Brimonidine Tartrate (Alphagan) 1 drop BID BOTH EYES 02/06/19 21:00 03/08/19 20:59 02/07/19 09:11 Dextrose (Dextrose 50%) 25 ml Q30M PRN IV Hypoglycemia 02/06/19 07:15 03/08/19 07:14 Dextrose (Dextrose 50%) 50 ml Q30M PRN IV Hypoglycemia 02/06/19 07:15 03/08/19 07:14 Heparin Sodium (Porcine) (Heparin 5000 units/ml) 5,000 units EVERY 12 HOURS SUBQ 02/06/19 09:00 03/08/19 08:59 02/07/19 09:09 Hydrochlorothiazide (Hydrodiuril) 12.5 mg DAILY ORAL 02/07/19 09:00 03/09/19 08:59 02/07/19 09:10 Latanoprost (Xalatan) 1 drop BEDTIME BOTH EYES 02/06/19 21:00 03/08/19 20:59 02/06/19 21:13 Lisinopril (Zestril) 10 mg DAILY ORAL 02/06/19 09:00 03/08/19 08:59 02/07/19 09:10 Lorazepam (Ativan 2mg/ml 1ml) 0.5 mg Q4H PRN IV For Anxiety 02/06/19 07:15 02/13/19 07:14 Methadone HCl (Methadone HCl) 80 mg DAILY ORAL 02/06/19 10:00 02/13/19 09:59 02/07/19 09:11 Methylprednisolone Sodium Succinate (Solu-MEDROL) 60 mg EVERY 12 HOURS IV 02/06/19 21:00 03/08/19 07:44 02/07/19 09:10 Morphine Sulfate (Morphine Sulfate) 2 mg Q4H PRN IVP severe pain 7-10 02/06/19 07:15 02/13/19 07:14 Nitroglycerin (Ntg) 0.4 mg Q5M X 3 DOSES PRN SL Prn Chest Pain 02/06/19 07:15 03/08/19 07:14 Ondansetron HCl (Zofran) 4 mg Q6H PRN IVP Nausea & Vomiting 02/06/19 07:15 03/08/19 07:14 Piperacillin Sod/ Tazobactam Sod 3.375 gm/Sodium Chloride 110 ml @ 27.5 mls/hr EVERY 8 HOURS IVPB 02/06/19 14:00 02/11/19 13:59 02/07/19 05:37 Promethazine HCl/ Codeine (Phenergan with Codeine) 5 ml Q6H PRN ORAL cough 02/06/19 07:15 03/08/19 07:14 Temazepam (Restoril) 15 mg HSPRN PRN ORAL Insomnia 02/06/19 07:15 02/13/19 07:14 Theophylline ([place]) 100 mg EVERY 12 HOURS ORAL 02/06/19 09:00 03/08/19 08:59 02/07/19 09:10 Timolol Maleate (Timoptic 0.25% Op Soln) 1 drop TWICE A DAY BOTH EYES 02/06/19 21:00 03/08/19 20:59 02/07/19 09:11 Tiotropium [place] (Spiriva Inhaler) 1 puff DAILY INH 02/06/19 09:00 03/08/19 08:59 02/07/19 09:16 Janey Kc MD Feb 07, 2019 12:42
--- NOTE | 2019-02-07 13:52 | NUR ---
*-* INSURANCE *-* ALL AVAILABLE CLINICALS HAVE BEEN FAXED TO: [facility]#[id number] No CM Yet PH#[phone] FAX#[phone]
--- NOTE | 2019-02-07 15:11 | NUR ---
CASE MANAGEMENT:REVIEW 73 YR OLD MALE BIBA FROM HOME CC: SOB SI: COPD EXACERBATION. RESPIRATORY DISTRESS 97 24 137/82 97% ON 5L/MASK PC02+49.2 PO2-59 IS: DUONEB HHN IV SOLUMEDROL IV MAG SULFATE CXR BLOOD CX : TO MED/[facility]URG [facility]
[2019-02-07 16:00] VITALS: BP 128/68
--- NOTE | 2019-02-07 19:05 | NUR ---
HAND-OFF: Report given to SANDRA Stapleton.
--- NOTE | 2019-02-07 19:27 | NUR ---
NURSE NOTES: Received report from SANDRA Warner. Patient is in bed, awake and alert x4. On 2L NC with no signs of distress or SOB. Denies any pain at this time. IV in tact and patent. Bed locked and in lowest position, with call light in reach. Will continue to monitor.
[2019-02-07 20:00] VITALS: BP 123/68
[2019-02-07] MEDS: Latanoprost 0.005% Opth 2.5ml Soln BOTH EYES SCH (21:39)
[2019-02-08] VITALS: BP 150/90
[2019-02-08] MEDS: Albuterol/Ipratropium 3ml neb HHN SCH ×4 (01:03→20:06)
[2019-02-08 04:00] VITALS: BP 150/87
[2019-02-08] MEDS: Promethazine/Codeine 5ml UD ORAL PRN (04:54)
[2019-02-08] MEDS: Zoysn 3.37gm in NS 100ML IVPB SCH ×3 (05:34→21:25)
[2019-02-08 06:34] LABS: HEMOGLOBIN 14.8 G/DL (14.2-18.0); MEAN CORPUSCULAR VOLUME 84 FL (80-99); PLATELET COUNT 177 K/UL (150-450); RED BLOOD COUNT 5.38 M/UL (4.70-6.10); RED CELL DISTRIBUTION WIDTH 13.9 % (11.6-14.8); WHITE BLOOD COUNT 19.1 K/UL (4.8-10.8)
[2019-02-08 07:02] LABS: ANION GAP 7 mmol/L (5-15); BLOOD UREA NITROGEN 15 mg/dL (7-18); CALCIUM 9.3 MG/DL (8.5-10.1); CARBON DIOXIDE 34 MMOL/L (21-32); CHLORIDE 100 MMOL/L (98-107); CREATININE 0.9 MG/DL (0.55-1.30); POTASSIUM 3.5 MMOL/L (3.5-5.1); SODIUM 141 MMOL/L (136-145)
--- NOTE | 2019-02-08 07:24 | NUR ---
HAND-OFF: Report given to SANDRA Warner.
--- NOTE | 2019-02-08 07:30 | NUR ---
NURSE NOTES: Pt lying in bed w/bed in lowest position and call light within reach. Pt A&Ox4; VSS; on 2L NC; and in no apparent respiratory distress. IV site intact/asymptomatic w/Zosyn infusing and skin intact. Pt c/o nausea and vomiting throughout the night but Zofran not yet due. Will contact MD and continue to monitor.
[2019-02-08 08:00] VITALS: BP 155/90
--- NOTE | 2019-02-08 08:30 | NUR ---
NURSE NOTES: Pt vomited about 100 ml of green fluid. Awaiting call back from MD. Will continue to monitor.
[2019-02-08] MEDS: Timoptic 0.25% Op Soln 2.5ml BOTH EYES SCH ×2 (09:06→17:27)
[2019-02-08] MEDS: Brimonidine 0.2% Opth Sol BOTH EYES SCH ×2 (09:06→17:27)
[2019-02-08] MEDS: hydroCHLOROthiazide 12.5mg TAB ORAL SCH (09:07)
[2019-02-08] MEDS: Lisinopril 10mg tab ORAL SCH (09:07)
[2019-02-08] MEDS: Theophylline ER 100mg ORAL SCH ×2 (09:07→21:26)
[2019-02-08] MEDS: Heparin 5000 units/ml inj SUBQ SCH ×2 (09:09→21:27)
[2019-02-08] MEDS: Albuterol/Ipratropium 3ml neb HHN PRN (09:27)
--- NOTE | 2019-02-08 11:27 | Pulmonology Progress Note ---
Assessment/Plan Problems: (1) COPD with exacerbation (2) Methadone maintenance therapy patient (3) Emphysema lung Assessment/Plan improving taper down steroids, pn prednisone 20 mg qd add phenergen for methadone. continue methadone dvt prophylaxis pt/ot Subjective ROS Limited/Unobtainable: No Interval Events: some nausea Constitutional: Reports: no symptoms HEENT: Repors: no symptoms Allergies: Coded Allergies: No Known Allergies (Unverified , 10/01/16) Objective Last 24 Hour Vital Signs Date Time Temp Pulse Resp B/P (MAP) Pulse Ox O2 Delivery O2 Flow Rate FiO2 02/08/19 09:28 76 18 99 Nasal Cannula 2.0 28 78 18 94 02/08/19 09:17 80 18 94 Nasal Cannula 2.0 28 02/08/19 09:17 79 18 90 Room Air 21 02/08/19 09:07 155/90 02/08/19 09:00 Nasal Cannula 2.0 02/08/19 08:00 98.6 87 20 155/90 (111) 94 02/08/19 07:18 93 Nasal Cannula 2.0 28 02/08/19 07:18 84 18 99 Nasal Cannula 2.0 28 85 18 93 02/08/19 04:00 97.9 87 16 150/87 (108) 98 02/08/19 01:00 81 14 97 Facial 28 02/08/19 01:00 81 18 100 Bi-Pap 28 81 18 97 02/08/19 00:00 98.2 106 23 150/90 (110) 99 02/07/19 21:00 Nasal Cannula 2.0 02/07/19 20:00 98.8 83 18 123/68 (86) 97 02/07/19 19:50 84 18 100 Nasal Cannula 2.0 28 79 18 98 02/07/19 19:50 98 Nasal Cannula 2.0 28 02/07/19 16:00 98.1 87 20 128/68 (88) 94 02/07/19 13:43 89 18 99 Nasal Cannula 2.0 28 88 18 94 02/07/19 12:00 98.8 82 20 128/70 (89) 94 Intake and Output 02/07/19 02/08/19 18:59 06:59 Intake Total 1565.0 ml Output Total 300 ml Balance 1565.0 ml -300 ml Intake Oral 1400 ml IV Total 165.0 ml Output Urine Total 300 ml # Voids 2 General Appearance: WD/WN HEENT: normocephalic, atraumatic Respiratory/Chest: chest wall non-tender, lungs clear Cardiovascular: normal peripheral pulses, normal rate, regularly irregular Abdomen: normal bowel sounds, soft, non tender Genitourinary: normal external genitalia Extremities: no cyanosis Skin: no rash Neurologic/Psychiatric: science analyst II-XII grossly normal Lymphatic: no neck adenopathy Musculoskeletal: normal muscle bulk Microbiology Date/Time Source Procedure Growth Status 02/06/19 00:40 Blood Blood Culture - Preliminary NO GROWTH AFTER 48 HOURS Resulted 02/06/19 00:25 Blood Blood Culture - Preliminary NO GROWTH AFTER 48 HOURS Resulted Laboratory Tests 02/08/19 05:10: White Blood Count 19.1H, Red Blood Count 5.38, Hemoglobin 14.8, Hematocrit 45.0 , Mean Corpuscular Volume 84, Mean Corpuscular Hemoglobin 27.5, Mean Corpuscular Hemoglobin Concent 32.9, Red Cell Distribution Width 13.9, Platelet Count 177, Mean Platelet Volume 7.8, Neutrophils (%) (Auto) , Lymphocytes (%) ( Auto) , Monocytes (%) (Auto) , Eosinophils (%) (Auto) , Basophils (%) (Auto) , Differential Total Cells Counted 100, Neutrophils % (Manual) 77H, Lymphocytes % (Manual) 16L, Monocytes % (Manual) 7, Eosinophils % (Manual) 0, Basophils % ( Manual) 0, Band Neutrophils 0, Platelet Estimate Adequate, Platelet Morphology Normal, Red Blood Cell Morphology Normal, Sodium Level 141, Potassium Level 3.5 , Chloride Level 100, Carbon Dioxide Level 34H, Anion Gap 7, Blood Urea Nitrogen 15, Creatinine 0.9, Estimat Glomerular Filtration Rate , Glucose Level 100, Calcium Level 9.3 Current Medications Medications (Trade) Dose Ordered Sig/Thom Route PRN Reason Start Time Stop Time Status Last Admin Dose Admin Albuterol/ Ipratropium (Albuterol/ Ipratropium) 3 ml Q4H PRN HHN dyspnea 02/06/19 07:15 02/11/19 07:14 02/08/19 09:27 Albuterol/ Ipratropium (Albuterol/ Ipratropium) 3 ml Q6HRT HHN 02/06/19 19:00 02/11/19 18:59 02/08/19 07:18 Brimonidine Tartrate (Alphagan) 1 drop BID BOTH EYES 02/06/19 21:00 03/08/19 20:59 02/08/19 09:06 Dextrose (Dextrose 50%) 25 ml Q30M PRN IV Hypoglycemia 02/06/19 07:15 03/08/19 07:14 Dextrose (Dextrose 50%) 50 ml Q30M PRN IV Hypoglycemia 02/06/19 07:15 03/08/19 07:14 Heparin Sodium (Porcine) (Heparin 5000 units/ml) 5,000 units EVERY 12 HOURS SUBQ 02/06/19 09:00 03/08/19 08:59 02/08/19 09:09 Hydrochlorothiazide (Hydrodiuril) 12.5 mg DAILY ORAL 02/07/19 09:00 03/09/19 08:59 02/08/19 09:07 Latanoprost (Xalatan) 1 drop BEDTIME BOTH EYES 02/06/19 21:00 03/08/19 20:59 02/07/19 21:39 Lisinopril (Zestril) 10 mg DAILY ORAL 02/06/19 09:00 03/08/19 08:59 02/08/19 09:07 Lorazepam (Ativan 2mg/ml 1ml) 0.5 mg Q4H PRN IV For Anxiety 02/06/19 07:15 02/13/19 07:14 Methadone HCl (Methadone HCl) 80 mg DAILY ORAL 02/06/19 10:00 02/13/19 09:59 02/08/19 09:07 Morphine Sulfate (Morphine Sulfate) 2 mg Q4H PRN IVP severe pain 7-10 02/06/19 07:15 02/13/19 07:14 Nitroglycerin (Ntg) 0.4 mg Q5M X 3 DOSES PRN SL Prn Chest Pain 02/06/19 07:15 03/08/19 07:14 Ondansetron HCl (Zofran) 4 mg Q6H PRN IVP Nausea & Vomiting 02/06/19 07:15 03/08/19 07:14 02/08/19 05:34 Pantoprazole (Protonix) 40 mg EVERY 12 HOURS ORAL 02/08/19 12:00 03/10/19 11:59 Piperacillin Sod/ Tazobactam Sod 3.375 gm/Sodium Chloride 110 ml @ 27.5 mls/hr EVERY 8 HOURS IVPB 02/06/19 14:00 02/11/19 13:59 02/08/19 05:34 Prednisone (predniSONE) 20 mg DAILY ORAL 02/08/19 09:00 03/10/19 08:59 02/08/19 09:07 Promethazine HCl/ Codeine (Phenergan with Codeine) 5 ml Q6H PRN ORAL cough 02/06/19 07:15 03/08/19 07:14 02/08/19 04:54 Temazepam (Restoril) 15 mg HSPRN PRN ORAL Insomnia 02/06/19 07:15 02/13/19 07:14 Theophylline ([place]) 100 mg EVERY 12 HOURS ORAL 02/06/19 09:00 03/08/19 08:59 02/08/19 09:07 Timolol Maleate (Timoptic 0.25% Op Soln) 1 drop TWICE A DAY BOTH EYES 02/06/19 21:00 03/08/19 20:59 02/08/19 09:06 Tiotropium [place] (Spiriva Inhaler) 1 puff DAILY INH 02/06/19 09:00 03/08/19 08:59 02/08/19 09:16 Janey Kc MD Feb 08, 2019 11:26
[2019-02-08] MEDS ORDERED: Promethazine HCl 25 MG in NS 55 ML IVPB PRN ×2 (11:30→11:45)
--- NOTE | 2019-02-08 11:39 | General Progress Note ---
Assessment/Plan Problem List: (1) Emphysema lung ICD Codes: J43.9 - Emphysema, unspecified SNOMED: 90661481 (2) Methadone maintenance therapy patient ICD Codes: F11.20 - Opioid dependence, uncomplicated SNOMED: 70605521, 079368687 (3) COPD (chronic obstructive pulmonary disease) ICD Codes: J44.9 - Chronic obstructive pulmonary disease, unspecified SNOMED: 40120736 (4) COPD with exacerbation ICD Codes: J44.1 - Chronic obstructive pulmonary disease with (acute) exacerbation SNOMED: 784955660 Status: unchanged Assessment/Plan: o2 pulm tx abx pt diet cbc bmp am Subjective Constitutional: Reports: weakness Respiratory: Reports: shortness of breath Allergies: Coded Allergies: No Known Allergies (Unverified , 10/01/16) All Systems: reviewed and negative except above Subjective o2nc calm Objective Last 24 Hour Vital Signs Date Time Temp Pulse Resp B/P (MAP) Pulse Ox O2 Delivery O2 Flow Rate FiO2 02/08/19 09:28 76 18 99 Nasal Cannula 2.0 28 78 18 94 02/08/19 09:17 80 18 94 Nasal Cannula 2.0 28 02/08/19 09:17 79 18 90 Room Air 21 02/08/19 09:07 155/90 02/08/19 09:00 Nasal Cannula 2.0 02/08/19 08:00 98.6 87 20 155/90 (111) 94 02/08/19 07:18 93 Nasal Cannula 2.0 28 02/08/19 07:18 84 18 99 Nasal Cannula 2.0 28 85 18 93 02/08/19 04:00 97.9 87 16 150/87 (108) 98 02/08/19 01:00 81 14 97 Facial 28 02/08/19 01:00 81 18 100 Bi-Pap 28 81 18 97 02/08/19 00:00 98.2 106 23 150/90 (110) 99 02/07/19 21:00 Nasal Cannula 2.0 02/07/19 20:00 98.8 83 18 123/68 (86) 97 02/07/19 19:50 84 18 100 Nasal Cannula 2.0 28 79 18 98 02/07/19 19:50 98 Nasal Cannula 2.0 28 02/07/19 16:00 98.1 87 20 128/68 (88) 94 02/07/19 13:43 89 18 99 Nasal Cannula 2.0 28 88 18 94 02/07/19 12:00 98.8 82 20 128/70 (89) 94 Intake and Output 02/07/19 02/08/19 18:59 06:59 Intake Total 1565.0 ml Output Total 300 ml Balance 1565.0 ml -300 ml Intake Oral 1400 ml IV Total 165.0 ml Output Urine Total 300 ml # Voids 2 Laboratory Tests 02/08/19 05:10: White Blood Count 19.1H, Red Blood Count 5.38, Hemoglobin 14.8, Hematocrit 45.0 , Mean Corpuscular Volume 84, Mean Corpuscular Hemoglobin 27.5, Mean Corpuscular Hemoglobin Concent 32.9, Red Cell Distribution Width 13.9, Platelet Count 177, Mean Platelet Volume 7.8, Neutrophils (%) (Auto) , Lymphocytes (%) ( Auto) , Monocytes (%) (Auto) , Eosinophils (%) (Auto) , Basophils (%) (Auto) , Differential Total Cells Counted 100, Neutrophils % (Manual) 77H, Lymphocytes % (Manual) 16L, Monocytes % (Manual) 7, Eosinophils % (Manual) 0, Basophils % ( Manual) 0, Band Neutrophils 0, Platelet Estimate Adequate, Platelet Morphology Normal, Red Blood Cell Morphology Normal, Sodium Level 141, Potassium Level 3.5 , Chloride Level 100, Carbon Dioxide Level 34H, Anion Gap 7, Blood Urea Nitrogen 15, Creatinine 0.9, Estimat Glomerular Filtration Rate , Glucose Level 100, Calcium Level 9.3 Height (Feet): 5 Height (Inches): 7.00 Weight (Pounds): 155 General Appearance: lethargic EENT: normal ENT inspection Neck: normal alignment Cardiovascular: normal peripheral pulses, normal rate, regular rhythm Respiratory/Chest: chest wall non-tender, expiratory wheezing Abdomen: normal bowel sounds, non tender, soft Extremities: normal inspection Edema: no edema noted Arm (L), no edema noted Arm (R), no edema noted Leg (L), no edema noted Leg (R), no edema noted Pedal (L), no edema noted Pedal (R), no edema noted Generalized Neurologic: responsive, motor weakness Skin: normal pigmentation, warm/dry Zac Mojica DO Feb 08, 2019 11:39
[2019-02-08 12:00] VITALS: BP 141/78
--- NOTE | 2019-02-08 15:14 | NUR ---
*-* INSURANCE *-* ALL AVAILABLE CLINICALS HAVE BEEN FAXED TO: [facility]#[id number] No CM Yet PH#[phone] FAX#[phone]
[2019-02-08 16:00] VITALS: BP 138/85
--- NOTE | 2019-02-08 16:08 | NUR ---
CASE MANAGEMENT:REVIEW 02/08/19 SI: COPD EXACERBATION EMPHYSEMA LUNG. METHADONE THERAPY 99.0 84 20 141/78 95% ON 2L/NC WBC+19.1 IS: IV ZOSYN Q8HRS PREDNISONE PO QD PROTONIX PO Q12 HCTZ PO QD METHADONE 80MG PO QD LISINOPRIL PO QD SPIRIVA INH QD HEPARIN SQ Q12 THEOPHYLLINE PO Q12 : MED/SURG 3 EAST DCP: FROM HOME
--- NOTE | 2019-02-08 16:14 | NUR ---
INSURANCE F/U CALLED [employer] RAE T: [phone] PER RAE CASE IS BEING DENIED FOR NON NOTIFICATION WHILE PATIENT WAS STILL IN THE ER
--- NOTE | 2019-02-08 19:29 | NUR ---
HAND-OFF: Report given to SANDRA Quiroga.
--- NOTE | 2019-02-08 19:30 | NUR ---
NURSE NOTES: Received report & pt from SANDRA Warner. Pt lying in bd, a&ox4, on O2 via NC @ 2LPM. No s/s of acute distress & no c/o pain at this time. IV site intact & S/L'd. Bed in lowest position, call light within reach. Will continue to monitor.
[2019-02-08 20:00] VITALS: BP 128/74
[2019-02-08] MEDS: Latanoprost 0.005% Opth 2.5ml Soln BOTH EYES SCH (21:25)
[2019-02-09] VITALS: BP 125/75
[2019-02-09] MEDS: Albuterol/Ipratropium 3ml neb HHN SCH ×3 (01:58→13:04)
[2019-02-09 04:00] VITALS: BP 117/75
[2019-02-09] MEDS: Promethazine/Codeine 5ml UD ORAL PRN (04:13)
[2019-02-09 05:34] LABS: BASOPHILS % (AUTO) 1.2 % (0.0-2.0); EOSINOPHILS % (AUTO) 0.4 % (0.0-3.0); HEMATOCRIT 43.8 % (42.0-52.0); HEMOGLOBIN 14.4 G/DL (14.2-18.0); LYMPHOCYTES % (AUTO) 16.5 % (20.0-45.0); MEAN CORPUSCULAR VOLUME 84 FL (80-99); MONOCYTES % (AUTO) 7.3 % (1.0-10.0); NEUTROPHILS % (AUTO) 74.6 % (45.0-75.0); PLATELET COUNT 182 K/UL (150-450); RED BLOOD COUNT 5.23 M/UL (4.70-6.10); WHITE BLOOD COUNT 15.1 K/UL (4.8-10.8)
[2019-02-09] MEDS: Zoysn 3.37gm in NS 100ML IVPB SCH ×2 (05:34→13:07)
[2019-02-09 05:39] LABS: ANION GAP 5 mmol/L (5-15); BLOOD UREA NITROGEN 12 mg/dL (7-18); CARBON DIOXIDE 32 MMOL/L (21-32); CHLORIDE 100 MMOL/L (98-107); POTASSIUM 3.9 MMOL/L (3.5-5.1); SODIUM 137 MMOL/L (136-145)
--- NOTE | 2019-02-09 07:17 | NUR ---
HAND-OFF: Report given to Irma Dodd RN. Pt in stable condition.
--- NOTE | 2019-02-09 07:20 | NUR ---
NURSE NOTES: Received patient in bed eating breakfast, patient awake, alert, oriented x4, on O2 via NC @ 2LPM. No s/s of acute distress . IV site intact on going IV atb on going.on fall precaution , Bed in lowest position, call light within reach. Will continue to monitor. laurel hoyt
[2019-02-09 08:05] VITALS: BP 114/63
[2019-02-09] MEDS: Timoptic 0.25% Op Soln 2.5ml BOTH EYES SCH ×2 (08:33→18:18)
[2019-02-09] MEDS: Brimonidine 0.2% Opth Sol BOTH EYES SCH ×2 (08:34→18:18)
[2019-02-09] MEDS: Lisinopril 10mg tab ORAL SCH (08:34)
[2019-02-09] MEDS: hydroCHLOROthiazide 12.5mg TAB ORAL SCH (08:35)
[2019-02-09] MEDS: Theophylline ER 100mg ORAL SCH (08:35)
[2019-02-09] MEDS: Heparin 5000 units/ml inj SUBQ SCH (08:39)
--- NOTE | 2019-02-09 09:20 | General Progress Note ---
Assessment/Plan Problem List: (1) Emphysema lung ICD Codes: J43.9 - Emphysema, unspecified SNOMED: 49374407 (2) Methadone maintenance therapy patient ICD Codes: F11.20 - Opioid dependence, uncomplicated SNOMED: 82357889, 650078963 (3) COPD (chronic obstructive pulmonary disease) ICD Codes: J44.9 - Chronic obstructive pulmonary disease, unspecified SNOMED: 98555806 (4) COPD with exacerbation ICD Codes: J44.1 - Chronic obstructive pulmonary disease with (acute) exacerbation SNOMED: 596065648 Status: stable, progressing Assessment/Plan: o2 pulm tx abx pt diet cbc bmp am dc w hh if clear Subjective Constitutional: Reports: weakness Allergies: Coded Allergies: No Known Allergies (Unverified , 10/01/16) All Systems: reviewed and negative except above Subjective o2nc calm Objective Last 24 Hour Vital Signs Date Time Temp Pulse Resp B/P (MAP) Pulse Ox O2 Delivery O2 Flow Rate FiO2 02/09/19 08:55 67 16 97 Nasal Cannula 2.0 28 02/09/19 08:54 68 15 97 Nasal Cannula 2.0 28 02/09/19 08:34 117/75 02/09/19 08:10 Nasal Cannula 2.0 02/09/19 08:05 98.6 86 17 114/63 (80) 98 02/09/19 07:19 66 16 99 Nasal Cannula 2.0 28 67 15 97 02/09/19 07:09 97 Nasal Cannula 2.0 28 02/09/19 04:00 97.8 74 17 117/75 (89) 97 02/09/19 01:58 73 18 99 Nasal Cannula 2.0 28 74 18 97 02/09/19 00:00 97.7 73 19 125/75 (92) 98 02/08/19 21:00 Nasal Cannula 2.0 02/08/19 20:06 74 18 99 Nasal Cannula 2.0 28 71 18 95 02/08/19 20:06 95 Nasal Cannula 2.0 28 02/08/19 20:00 98.1 74 16 128/74 (92) 98 02/08/19 16:00 98.5 79 18 138/85 (102) 93 02/08/19 13:44 69 18 98 Nasal Cannula 2.0 28 75 18 88 02/08/19 12:00 99.0 84 20 141/78 (99) 95 02/08/19 09:28 76 18 99 Nasal Cannula 2.0 28 78 18 94 Intake and Output 02/08/19 02/09/19 19:00 07:00 Intake Total 492.5 ml 507.5 ml Output Total 100 ml 450 ml Balance 392.5 ml 57.5 ml Intake Oral 300 ml 480 ml IV Total 192.5 ml 27.5 ml Output Urine Total 450 ml Emesis 100 ml # Voids 2 2 Laboratory Tests 02/09/19 04:45: White Blood Count 15.1H, Red Blood Count 5.23, Hemoglobin 14.4, Hematocrit 43.8 , Mean Corpuscular Volume 84, Mean Corpuscular Hemoglobin 27.5, Mean Corpuscular Hemoglobin Concent 32.8, Red Cell Distribution Width 14.0, Platelet Count 182, Mean Platelet Volume 7.4, Neutrophils (%) (Auto) 74.6, Lymphocytes (% ) (Auto) 16.5L, Monocytes (%) (Auto) 7.3, Eosinophils (%) (Auto) 0.4, Basophils (%) (Auto) 1.2, Sodium Level 137, Potassium Level 3.9, Chloride Level 100, Carbon Dioxide Level 32, Anion Gap 5, Blood Urea Nitrogen 12, Creatinine 1.0, Estimat Glomerular Filtration Rate , Glucose Level 159H, Calcium Level 9.0 Height (Feet): 5 Height (Inches): 7.00 Weight (Pounds): 155 General Appearance: lethargic EENT: normal ENT inspection Neck: normal alignment Cardiovascular: normal peripheral pulses, normal rate, regular rhythm Respiratory/Chest: chest wall non-tender, lungs clear, normal breath sounds Abdomen: normal bowel sounds, non tender, soft Extremities: normal inspection Edema: no edema noted Arm (L), no edema noted Arm (R), no edema noted Leg (L), no edema noted Leg (R), no edema noted Pedal (L), no edema noted Pedal (R), no edema noted Generalized Neurologic: responsive, motor weakness Skin: normal pigmentation, warm/dry Zac Mojica DO Feb 09, 2019 09:20
[2019-02-09 12:00] VITALS: BP 124/77
--- NOTE | 2019-02-09 12:59 | Pulmonology Progress Note ---
Assessment/Plan Problems: (1) COPD with exacerbation (2) Methadone maintenance therapy patient (3) Emphysema lung Assessment/Plan improving dc steroids add phenergen for methadone. continue methadone dvt prophylaxis Subjective ROS Limited/Unobtainable: No Constitutional: Reports: no symptoms HEENT: Repors: no symptoms Respiratory: Reports: no symptoms Allergies: Coded Allergies: No Known Allergies (Unverified , 10/01/16) Objective Last 24 Hour Vital Signs Date Time Temp Pulse Resp B/P (MAP) Pulse Ox O2 Delivery O2 Flow Rate FiO2 02/09/19 12:00 99.8 79 17 124/77 (93) 98 02/09/19 08:55 67 16 97 Nasal Cannula 2.0 28 02/09/19 08:54 68 15 97 Nasal Cannula 2.0 28 02/09/19 08:34 117/75 02/09/19 08:10 Nasal Cannula 2.0 02/09/19 08:05 98.6 86 17 114/63 (80) 98 02/09/19 07:19 66 16 99 Nasal Cannula 2.0 28 67 15 97 02/09/19 07:09 97 Nasal Cannula 2.0 28 02/09/19 04:00 97.8 74 17 117/75 (89) 97 02/09/19 01:58 73 18 99 Nasal Cannula 2.0 28 74 18 97 02/09/19 00:00 97.7 73 19 125/75 (92) 98 02/08/19 21:00 Nasal Cannula 2.0 02/08/19 20:06 74 18 99 Nasal Cannula 2.0 28 71 18 95 02/08/19 20:06 95 Nasal Cannula 2.0 28 02/08/19 20:00 98.1 74 16 128/74 (92) 98 02/08/19 16:00 98.5 79 18 138/85 (102) 93 02/08/19 13:44 69 18 98 Nasal Cannula 2.0 28 75 18 88 Intake and Output 02/08/19 02/09/19 18:59 06:59 Intake Total 520.0 ml 480 ml Output Total 100 ml 450 ml Balance 420.0 ml 30 ml Intake Oral 300 ml 480 ml IV Total 220.0 ml Output Urine Total 450 ml Emesis 100 ml # Voids 2 2 General Appearance: WD/WN HEENT: normocephalic, atraumatic Respiratory/Chest: chest wall non-tender, lungs clear, normal breath sounds Cardiovascular: normal peripheral pulses, normal rate, regular rhythm Abdomen: normal bowel sounds, no organomegaly Genitourinary: normal external genitalia Skin: no rash 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 Laboratory Tests 02/09/19 04:45: White Blood Count 15.1H, Red Blood Count 5.23, Hemoglobin 14.4, Hematocrit 43.8 , Mean Corpuscular Volume 84, Mean Corpuscular Hemoglobin 27.5, Mean Corpuscular Hemoglobin Concent 32.8, Red Cell Distribution Width 14.0, Platelet Count 182, Mean Platelet Volume 7.4, Neutrophils (%) (Auto) 74.6, Lymphocytes (% ) (Auto) 16.5L, Monocytes (%) (Auto) 7.3, Eosinophils (%) (Auto) 0.4, Basophils (%) (Auto) 1.2, Sodium Level 137, Potassium Level 3.9, Chloride Level 100, Carbon Dioxide Level 32, Anion Gap 5, Blood Urea Nitrogen 12, Creatinine 1.0, Estimat Glomerular Filtration Rate , Glucose Level 159H, Calcium Level 9.0 Current Medications Medications (Trade) Dose Ordered Sig/Thom Route PRN Reason Start Time Stop Time Status Last Admin Dose Admin Albuterol/ Ipratropium (Albuterol/ Ipratropium) 3 ml Q4H PRN HHN dyspnea 02/06/19 07:15 02/11/19 07:14 02/08/19 09:27 Albuterol/ Ipratropium (Albuterol/ Ipratropium) 3 ml Q6HRT HHN 02/06/19 19:00 02/11/19 18:59 02/09/19 07:09 Brimonidine Tartrate (Alphagan) 1 drop BID BOTH EYES 02/06/19 21:00 03/08/19 20:59 02/09/19 08:34 Dextrose (Dextrose 50%) 25 ml Q30M PRN IV Hypoglycemia 02/06/19 07:15 03/08/19 07:14 Dextrose (Dextrose 50%) 50 ml Q30M PRN IV Hypoglycemia 02/06/19 07:15 03/08/19 07:14 Heparin Sodium (Porcine) (Heparin 5000 units/ml) 5,000 units EVERY 12 HOURS SUBQ 02/06/19 09:00 03/08/19 08:59 02/09/19 08:39 Hydrochlorothiazide (Hydrodiuril) 12.5 mg DAILY ORAL 02/07/19 09:00 03/09/19 08:59 02/09/19 08:35 Latanoprost (Xalatan) 1 drop BEDTIME BOTH EYES 02/06/19 21:00 03/08/19 20:59 02/08/19 21:25 Lisinopril (Zestril) 10 mg DAILY ORAL 02/06/19 09:00 03/08/19 08:59 02/09/19 08:34 Lorazepam (Ativan 2mg/ml 1ml) 0.5 mg Q4H PRN IV For Anxiety 02/06/19 07:15 02/13/19 07:14 Methadone HCl (Methadone HCl) 80 mg DAILY ORAL 02/06/19 10:00 02/13/19 09:59 02/09/19 08:35 Morphine Sulfate (Morphine Sulfate) 2 mg Q4H PRN IVP severe pain 7-10 02/06/19 07:15 02/13/19 07:14 Nitroglycerin (Ntg) 0.4 mg Q5M X 3 DOSES PRN SL Prn Chest Pain 02/06/19 07:15 03/08/19 07:14 Ondansetron HCl (Zofran) 4 mg Q6H PRN IVP Nausea & Vomiting 02/06/19 07:15 03/08/19 07:14 02/08/19 11:35 Pantoprazole (Protonix) 40 mg EVERY 12 HOURS ORAL 02/08/19 12:00 03/10/19 11:59 02/09/19 08:34 Piperacillin Sod/ Tazobactam Sod 3.375 gm/Sodium Chloride 110 ml @ 27.5 mls/hr EVERY 8 HOURS IVPB 02/06/19 14:00 02/11/19 13:59 02/09/19 05:34 Prednisone (predniSONE) 20 mg DAILY ORAL 02/08/19 09:00 03/10/19 08:59 02/09/19 08:34 Promethazine HCl 25 mg/Sodium Chloride 56 ml @ 112 mls/hr Q6H PRN IVPB nausea 02/08/19 11:45 03/10/19 11:29 Promethazine HCl/ Codeine (Phenergan with Codeine) 5 ml Q6H PRN ORAL cough 02/06/19 07:15 03/08/19 07:14 02/09/19 04:13 Temazepam (Restoril) 15 mg HSPRN PRN ORAL Insomnia 02/06/19 07:15 02/13/19 07:14 Theophylline ([place]) 100 mg EVERY 12 HOURS ORAL 02/06/19 09:00 03/08/19 08:59 02/09/19 08:35 Timolol Maleate (Timoptic 0.25% Op Soln) 1 drop TWICE A DAY BOTH EYES 02/06/19 21:00 03/08/19 20:59 02/09/19 08:33 Tiotropium [place] (Spiriva Inhaler) 1 puff DAILY INH 02/06/19 09:00 03/08/19 08:59 02/09/19 08:54 Janey Kc MD Feb 09, 2019 12:59
--- NOTE | 2019-02-09 13:52 | NUR ---
HAND-OFF: Report given to SANDRA Benitez accordingly sandra hoyt.
--- NOTE | 2019-02-09 15:24 | NUR ---
*-* INSURANCE *-* ALL AVAILABLE CLINICALS HAVE BEEN FAXED TO: [facility]#[id number] No CM Yet PH#[phone] FAX#[phone]
[2019-02-09 16:00] VITALS: BP 127/72
[2019-02-09] MEDS ORDERED: BRIMONIDINE TART5 ML BOTH EYES (17:48)
[2019-02-09] MEDS ORDERED: DUONEB 0.5-3(2.53 ML HHN ×2 (17:49→17:50)
[2019-02-09] MEDS ORDERED: HYDROCHLOROTH12.5 M2 ORAL (17:50)
[2019-02-09] MEDS ORDERED: PANTOPRAZOLE SO40 MG ORAL (17:52)
[2019-02-09] MEDS ORDERED: NITRO0.4 SL (17:52)
[2019-02-09] MEDS ORDERED: TEMAZEPAM15 MG ORAL (17:53)
[2019-02-09] MEDS ORDERED: THEOPHYLLI80 MG/151 PO (17:54)
[2019-02-09] MEDS ORDERED: TIMOPTIC 0.25%1 EACH OP (17:55)
[2019-02-09] MEDS ORDERED: SPIRIVA18 MCG INH (17:56)
--- NOTE | 2019-02-09 18:50 | NUR ---
NURSE NOTES: Received pt from CHERYL GERONIMO at 1500. pt is alert and orient x4. pt has NC 2LMP. Pt has D/C order, all discharge assessments and instructions done and pt verbally confirmed to understand all. pt is stable, V/S stable, all belongings are with pt and belongings paper signed by pt. pt has portable oxygen to go home with. Dr WHITE is aware about WBC 15.1 and other lab results no new order to RN. PT IS AWARE ABOUT [facility]. IV access D/C. Pt left hospital with accompany of nephew with portable oxygen.
--- NOTE | 2019-02-10 20:11 | Discharge Summary ---
Discharge Summary Discharge Summary _ DATE OF ADMISSION: 02/06/2019 DATE OF DISCHARGE: 02/09/2019 DISCHARGED BY: Dr. Zac Mojica CONSULTANTS: Dr. Janey Kc [facility] HOSPITAL COURSE: Patient is a 73-year-old male, who lives at home, presented to ED due to increased shortness of breath for 5 days. He has medical history of hypertension, COPD and methadone use. He presented to ED with chief complaint of respiratory distress and shortness of breath. Symptoms worsened. He called 911. His inhalers were not helping. He was given breathing treatment and oxygen support by EMS. He denies any fever or chills. No nausea or vomiting. No diarrhea. Upon evaluation at the ED, blood pressure was 137/82, pulse rate 97, O2 saturation 97% on 6 L simple mask. He was placed on BiPAP. Blood work did not show any leukocytosis. Hemoglobin and hematocrit were stable. ABG showed pH 7.4, PCO2 49, PaO2 59, bicarb 29, O2 saturation 90, base excess 3.6. Urine toxicology was positive for opiates. Chest x-ray showed no acute disease. He was given nebulizer treatment. He was able to be weaned off BiPAP. He was admitted for COPD exacerbation. He was admitted to medical floor. He was continued on nebulizer treatment. He was started empirically on Zosyn. He was given cough medications and theophylline. He was started on methylprednisolone 60 mg IV. He was continued on methadone. Blood pressure was controlled with lisinopril and hydrochlorothiazide. Steroids were tapered. He was given PT OT. Blood culture did not isolate any growth. Sputum culture with growth of Enterobacter. He was bitten better and was saturating well. He was cleared for discharge home. FINAL DIAGNOSES: Acute COPD exacerbation Methadone maintenance therapy Emphysema DISPOSITION: NH home with home health. DISCHARGE MEDICATIONS: Refer to Discharge Medication List. DISCHARGE INSTRUCTIONS: Follow-up in a week. I have been assigned to complete a discharge summary on this account, I was not involved with the patient's management.--SKYLER Celaya Jacqueline Robles NP Feb 10, 2019 20:11
--- NOTE | 2019-02-12 12:47 | Cardiology Report ---
APPROVED REPORT EKG Measurement Heart [id number] Normal sinus rhythm Septal infarct, age undetermined Abnormal ECG
--- NOTE | 2019-02-13 09:16 | NUR ---
*-* INSURANCE *-* discharge summary has BEEN FAXED TO: [facility]#[id number] No CM Yet #[phone] FAX#[phone]
== END 2019-02-09 18:38 | disposition home health service (06) | DRG 140 ==
LOC: EDBD 23:59 → EMR 02-06 00:13 → 3E 02-06 02:05 → EDBEDREQ 02-06 02:27
DX: J43.9 Emphysema, unspecified (principal); I10 Essential (primary) hypertension; G89.29 Other chronic pain; F11.20 Opioid dependence, uncomplicated; Z79.82 Long term (current) use of aspirin; Z87.891 Personal history of nicotine dependence
CPT/HCPCS: 36415; 36600; 71045; 80048; 80053; 80307; 81003; 82550; 82553; 82803; 83605; 83735; 83880; 84100; 84484; 85007; 85025; 87040; 87070; 87181; 87205; 93005; 94640; 94660; 94664; 96365; 96366; 96375; 99285; J2405; J7620

== ENCOUNTER 2019-03-13 07:32 | Emergency (ER) | payer MEDICARE, MEDICAID ==
[~2019-03-13] VITALS: Ht 172.7 cm; Wt 72.6 kg
[~2019-03-13 07:32] MED LIST changes: +BRIMONIDINE TART5 ML BOTH EYES; +DUONEB 0.5-3(2.53 ML HHN; +NITRO0.4 SL; +PANTOPRAZOLE SO40 MG ORAL; +TEMAZEPAM15 MG ORAL; +THEOPHYLLI80 MG/151 PO; +TIMOPTIC 0.25%1 EACH OP
[2019-03-13] MEDS ORDERED: Solu-MEDROL 125mg Inj IVP ONE (08:00)
[2019-03-13] MEDS ORDERED: Ipratropium 0.02% Inh Soln 2.5ml UD HHN ONE (08:00)
[2019-03-13] MEDS ORDERED: Aspirin Baby 81mg ORAL ONE (08:00)
[2019-03-13] MEDS ORDERED: Albuterol ud Inhalation HHN ONE (08:00)
[2019-03-13 08:11] VITALS: BP 149/93
--- NOTE | 2019-03-13 08:27 | Diagnostic Imaging Report ---
Indication: Shortness of breath Technique: One view of the chest Comparison: 02/06/2019 Findings: There is some atelectasis at the left lung base. Lungs and pleural spaces are otherwise clear. The heart size is normal. Previously questioned left pleural effusion is not evident currently Impression: No acute process
--- NOTE | 2019-03-13 08:30 | Emergency Room Report ---
History of Present Illness General Chief Complaint: Dyspnea/Respdistress Source: Medical Record Present Illness HPI 73-year-old male with history of hypertension and COPD, emphysema who presents to emergency room via EMS for shortness of breath. Patient states he woke up this morning and he walked from bedroom to a very cold kitchen which aggravated his COPD. Patient said he had difficulty breathing and began wheezing. He tried one albuterol nebulizer at home which did not help the symptoms. Patient was found to have 80% on oxygen on room air by EMS. They gave 1 albuterol nebulizer which improved oxygen 200%. Patient states he used to be heavy smoker but quit in 2009. Patient states he has a history of "black lung" and capacity to only breathe through one long. Patient denies any chest pain, arm pain, back pain, nausea, or lower extremity edema. Patient denies any fevers chills or cough at this time. Patient states albuterol nebulizer helped with his breathing. Of note patient states that he was admitted several months ago for similar COPD exacerbation and given steroids Allergies: Coded Allergies: No Known Allergies (Unverified , 10/01/16) Nursing Documentation-[facility] Past Medical History: No History, Except For Hx Cardiac Problems: Yes Hx Hypertension: Yes Hx Asthma: Yes Hx COPD: Yes Hx Cancer: No Hx Gastrointestinal Problems: No Hx Neurological Problems: No Review of Systems Constitutional: Denies: fever, weakness Respiratory: Reports: shortness of breath, wheezing; Denies: cough Cardiovascular: Denies: chest pain, edema Gastrointestinal: Denies: abdominal pain, diarrhea, vomiting Musculoskeletal: Denies: back pain Skin: Denies: rash, lesions Physical Exam Vital Signs Date Time Temp Pulse Resp B/P (MAP) Pulse Ox O2 Delivery O2 Flow Rate FiO2 03/13/19 07:29 99.0 99 16 149/93 (111) 100 Room Air 03/13/19 08:14 21 Sp02 EP Interpretation: reviewed, normal General Appearance: no apparent distress, alert, GCS 15, non-toxic Head: normocephalic, atraumatic Neck: full range of motion, supple/symm/no masses Respiratory: chest non-tender, no retraction, no accessory muscle use, respiratory distress - Mild tachypnea, speaking full sentences, wheezing, chest symmetrical Cardiovascular #1: regular rate, rhythm, no edema Cardiovascular #2: 2+ radial (R), 2+ radial (L) Gastrointestinal: normal bowel sounds, non tender, soft, non-distended, no guarding, no rebound Skin: warm/dry, normal turgor Medical Decision Making ER Course 73-year-old male with history of COPD brought in by EMS for wheezing who improved after 1 albuterol at home and one given by EMS. History of smoking. No fevers, no cough, no chest pain. Differential: COPD exacerbation, pneumonia, ACS, atypical chest pain, sepsis, pneumothorax, Patient with stable oxygenation at this time. Patient kept on monitor and home O2. Will give steroids perform laboratory testing and reassess. Patient symptoms improved after treatments given in emergency room. Patient is stable for outpatient follow-up. Given prescriptions for steroids. Patient to follow-up with primary care doctor in 2 to 3 days for reassessment. Patient understands warning signs and when to return. Patient to be picked up by family with his home O2. Laboratory Tests Test 03/13/19 09:10 White Blood Count 11.3 K/UL (4.8-10.8) H Red Blood Count 5.28 M/UL (4.70-6.10) Hemoglobin 14.3 G/DL (14.2-18.0) Hematocrit 43.1 % (42.0-52.0) Mean Corpuscular Volume 82 FL (80-99) Mean Corpuscular Hemoglobin 27.0 PG (27.0-31.0) Mean Corpuscular Hemoglobin Concent 33.1 G/DL (32.0-36.0) Red Cell Distribution Width 11.7 % (11.6-14.8) Platelet Count 177 K/UL (150-450) Mean Platelet Volume 7.2 FL (6.5-10.1) Neutrophils (%) (Auto) 76.0 % (45.0-75.0) H Lymphocytes (%) (Auto) 12.9 % (20.0-45.0) L Monocytes (%) (Auto) 9.8 % (1.0-10.0) Eosinophils (%) (Auto) 0.5 % (0.0-3.0) Basophils (%) (Auto) 0.8 % (0.0-2.0) Sodium Level 139 MMOL/L (136-145) Potassium Level 3.9 MMOL/L (3.5-5.1) Chloride Level 100 MMOL/L (98-107) Carbon Dioxide Level 35 MMOL/L (21-32) H Anion Gap 4 mmol/L (5-15) L Blood Urea Nitrogen 7 mg/dL (7-18) Creatinine 0.8 MG/DL (0.55-1.30) Estimate Glomerular Filtration Rate mL/min (>60) Glucose Level 106 MG/DL (74-106) Calcium Level 8.7 MG/DL (8.5-10.1) Total Bilirubin 0.4 MG/DL (0.2-1.0) Aspartate Amino Transferase (AST) 20 U/L (15-37) Alanine Aminotransferase (ALT) 17 U/L (12-78) Alkaline Phosphatase 69 U/L (46-116) Troponin I 0.010 ng/mL (0.000-0.056) Total Protein 7.7 G/DL (6.4-8.2) Albumin 3.4 G/DL (3.4-5.0) Globulin 4.3 g/dL Albumin/Globulin Ratio 0.8 (1.0-2.7) L EKG Diagnostic Results EKG Time: 07:40 EP Interpretation: Normal sinus rhythm [address] changes consistent with ischemia. Rate: normal Rhythm: NSR ST Segments: no acute changes Chest X-Ray Diagnostic Results Chest X-Ray Diagnostic Results : Chest X-Ray Ordered: Yes # of Views/Limited/Complete: 1 View Indication: Shortness of Breath PA Xray: Interpretation reviewed Interpretation: no consolidation, no effusion, no pneumothorax Impression: No acute disease Electronically Signed by: Billy Riggins MD, radiologist Brijesh Harris MD Last Vital Signs Date Time Temp Pulse Resp B/P (MAP) Pulse Ox O2 Delivery O2 Flow Rate FiO2 03/13/19 08:14 76 16 100 Room Air 21 77 20 97 03/13/19 08:11 99.0 149/93 Status: improved Disposition: HOME, SELF-CARE Condition: Stable Scripts Prednisone* (PREDNISONE*) 20 Mg Tablet 40 MG ORAL DAILY, #5 TAB Prov: Billy Smallwood M.D. 03/13/19 Referrals: NOT CHOSEN IPA/,REFERRING (PCP) Billy Smallwood M.D. Mar 13, 2019 08:30
[2019-03-13 09:05] VITALS: BP 117/68
[2019-03-13 09:20] LABS: BASOPHILS % (AUTO) 0.8 % (0.0-2.0); EOSINOPHILS % (AUTO) 0.5 % (0.0-3.0); HEMATOCRIT 43.1 % (42.0-52.0); HEMOGLOBIN 14.3 G/DL (14.2-18.0); LYMPHOCYTES % (AUTO) 12.9 % (20.0-45.0); MEAN CORPUSCULAR VOLUME 82 FL (80-99); MONOCYTES % (AUTO) 9.8 % (1.0-10.0); PLATELET COUNT 177 K/UL (150-450); RED BLOOD COUNT 5.28 M/UL (4.70-6.10); RED CELL DISTRIBUTION WIDTH 11.7 % (11.6-14.8); WHITE BLOOD COUNT 11.3 K/UL (4.8-10.8)
[2019-03-13 09:34] LABS: ANION GAP 4 mmol/L (5-15); BLOOD UREA NITROGEN 7 mg/dL (7-18); CALCIUM 8.7 MG/DL (8.5-10.1); CARBON DIOXIDE 35 MMOL/L (21-32); CHLORIDE 100 MMOL/L (98-107); CREATININE 0.8 MG/DL (0.55-1.30); POTASSIUM 3.9 MMOL/L (3.5-5.1); SODIUM 139 MMOL/L (136-145)
[2019-03-13 09:39] LABS: ALANINE AMINOTRANSFERASE 17 U/L (12-78); ALBUMIN 3.4 G/DL (3.4-5.0); ALBUMIN/GLOBULIN RATIO 0.8 (1.0-2.7); ALKALINE PHOSPHATASE 69 U/L (46-116); ASPARTATE AMINO TRANSFERASE 20 U/L (15-37); BILIRUBIN,TOTAL 0.4 MG/DL (0.2-1.0)
[2019-03-13] MEDS ORDERED: PREDNISONE20 MG ORAL (10:15)
[2019-03-13 10:35] VITALS: BP 134/82
--- NOTE | 2019-03-13 12:33 | Cardiology Report ---
APPROVED REPORT EKG Measurement Heart [id number] [id number] Normal sinus rhythm Normal ECG
== END 2019-03-13 15:06 | disposition home or self-care (01) ==
LOC: EDBD 07:32 → EMR 07:58
DX: R06.02 Shortness of breath (principal); I10 Essential (primary) hypertension; J44.9 Chronic obstructive pulmonary disease, unspecified; Z87.891 Personal history of nicotine dependence
CPT/HCPCS: 36415; 71045; 80053; 84484; 85025; 93005; 94640; 94664; 96374; 99284; J2930

== ENCOUNTER 2019-06-18 11:15 | Emergency (ER) | payer MEDICARE, MEDICAID ==
[~2019-06-18] VITALS: Ht 172.7 cm; Wt 77.1 kg
--- NOTE | 2019-06-18 11:24 | NUR ---
ED Nurse Note: Patient brought in by RA 94 from home due to SOB x4-5 days and it got worse today. 2L/min via NC upon arrival. O2 sat 95% in triage. Placed patient in hospital gown, oxygen via NC 2LPM, patient saturating 96%, denies SOB/CP at this time. Placed patient on cont. lunchroom monitor and pulse ox. Denies pain. ERMD at bedside.
[2019-06-18] MEDS ORDERED: Solu-MEDROL 125mg Inj IVP ONE (11:30)
--- NOTE | 2019-06-18 11:33 | Emergency Room Report ---
History of Present Illness General Chief Complaint: Dyspnea/Respdistress Source: Patient Present Illness HPI Disclaimer: Please note that this report is being documented using DRAGON technology. This can lead to erroneous entry secondary to incorrect interpretation by the dictating instrument. HPI: This is a 73-year-old male with a history of COPD emphysema hypertension presenting for evaluation of shortness of breath. Symptoms worsening over the past 2 to 3 days. He notes a exertional dyspnea without chest pain. He normally uses a O2 concentrator on 2 L [id number]. EMS said that he was saturating about 94% but still complaining of shortness of breath. When I switched him to 2 L on the oxygen tank he felt better. They are concerned that his concentrator may not be working though saturations were unchanged. Otherwise he denies any palpitations, nasal congestion, sore throat, abdominal pain, vomiting, diarrhea, fever, chills or recent illness. PMH: Emphysema, COPD, hypertension PSH: Reviewed Allergies: Denies Social Hx: Former smoker, quit 2011 Allergies: Coded Allergies: No Known Allergies (Unverified , 10/01/16) Nursing Documentation-PMH Past Medical History: No History, Except For Hx Cardiac Problems: No - drug abuse, CHF Hx Hypertension: Yes Hx Asthma: Yes Hx COPD: Yes Hx Cancer: No Hx Gastrointestinal Problems: No Hx Neurological Problems: No Review of Systems All Other Systems: negative except mentioned in HPI Physical Exam Vital Signs Date Time Temp Pulse Resp B/P (MAP) Pulse Ox O2 Delivery O2 Flow Rate FiO2 06/18/19 11:09 97.2 95 18 140/82 (101) 95 Nasal Cannula 2.0 General: Awake and alert, no acute distress HEENT: NC/AT. EOMI. Cardiovascular: RRR. S1 and S2 normal. No murmur appreciated Resp: Normal work of breathing. No cough, wheezing. Few crackles at the base on the left side Abdomen: Abdomen is soft, nondistended. Nontender Skin: Intact. No abrasions, laceration or rash over the exposed skin MSK: Normal tone and bulk. Moving all extremities. No obvious deformity. Neuro: Awake and alert. Mentating appropriately. Medical Decision Making Diagnostic Impression: Primary Impression: COPD (chronic obstructive pulmonary disease) ER Course 73-year-old male history of COPD and emphysema presents for evaluation of shortness of breath over the past few days. Differential includes was not limited to COPD exacerbation, CHF exacerbation, ACS, pneumonia, bronchitis, viral syndrome, faulty medical equipment at home. On 2 L nasal cannula patient is saturating well and has no complaints. He states his shortness of breath is now resolved. Will obtain x-ray and labs. No acute distress at this time. We will continue with breathing treatments and steroids. Laboratory Tests Test 06/18/19 11:45 06/18/19 14:45 White Blood Count 11.0 K/UL (4.8-10.8) H Red Blood Count 5.19 M/UL (4.70-6.10) Hemoglobin 14.5 G/DL (14.2-18.0) Hematocrit 42.4 % (42.0-52.0) Mean Corpuscular Volume 82 FL (80-99) Mean Corpuscular Hemoglobin 28.0 PG (27.0-31.0) Mean Corpuscular Hemoglobin Concent 34.2 G/DL (32.0-36.0) Red Cell Distribution Width 13.6 % (11.6-14.8) Platelet Count 176 K/UL (150-450) Mean Platelet Volume 8.5 FL (6.5-10.1) Neutrophils (%) (Auto) 71.4 % (45.0-75.0) Lymphocytes (%) (Auto) 19.5 % (20.0-45.0) L Monocytes (%) (Auto) 6.0 % (1.0-10.0) Eosinophils (%) (Auto) 0.7 % (0.0-3.0) Basophils (%) (Auto) 2.4 % (0.0-2.0) H Troponin I 0.000 ng/mL (0.000-0.056) Sodium Level 139 MMOL/L (136-145) Potassium Level 4.2 MMOL/L (3.5-5.1) Chloride Level 99 MMOL/L (98-107) Carbon Dioxide Level 34 MMOL/L (21-32) H Anion Gap 6 mmol/L (5-15) Blood Urea Nitrogen 10 mg/dL (7-18) Creatinine 0.8 MG/DL (0.55-1.30) Estimate Glomerular Filtration Rate > 60 mL/min (>60) Glucose Level 149 MG/DL (74-106) H Calcium Level 9.6 MG/DL (8.5-10.1) Total Bilirubin 0.5 MG/DL (0.2-1.0) Aspartate Amino Transferase (AST) 21 U/L (15-37) Alanine Aminotransferase (ALT) 19 U/L (12-78) Alkaline Phosphatase 64 U/L (46-116) Pro-B-Type Natriuretic Peptide 54 pg/mL (0-125) Total Protein 7.7 G/DL (6.4-8.2) Albumin 3.6 G/DL (3.4-5.0) Globulin 4.1 g/dL Albumin/Globulin Ratio 0.9 (1.0-2.7) L EKG Diagnostic Results EKG Time: 11:24 Rate: normal Rhythm: NSR ST Segments: no acute changes Other Impression Sinus rhythm, normal axis, normal intervals, no ST segment changes. Anterior Q waves may represent prior infarct Rhythm Strip Diag. Results Rhythm Strip Time: 11:24 EP Interpretation: yes Rate: 91 Rhythm: NSR, no PVC's, no ectopy Chest X-Ray Diagnostic Results Chest X-Ray Diagnostic Results : Chest X-Ray Ordered: Yes # of Views/Limited/Complete: 1 View Indication: Shortness of Breath EP Interpretation: Yes Interpretation: no consolidation, no effusion, no pneumothorax Impression: No acute disease Electronically Signed by: Electronically signed by Dr. Davis Wynne Reevaluation Time: 13:26 Last Vital Signs Date Time Temp Pulse Resp B/P (MAP) Pulse Ox O2 Delivery O2 Flow Rate FiO2 06/18/19 11:09 97.2 95 18 140/82 (101) 95 Nasal Cannula 2.0 Reevaluation Impression Patient reports significant improvement in his breathing after receiving 3 breathing treatments and Solu-Medrol. He is off oxygen saturating 97%. No wheezes appreciable. Chest x-ray does not show obvious infiltrate. Mild atelectasis but no effusions. He states he has been fighting a cold for the past few days and believes it might of triggered some of his lung disease. Labs are within normal limits. Believe patient can be safely discharged and treated on an outpatient basis. We will continue steroids, refill his albuterol and start him on antibiotics given his COPD status and high risk of developing secondary infection. He will follow-up with his PMD. Instructed to return to the emergency department point if his symptoms fail to improve or suddenly worsened again.He understands and agrees with this treatment plan will be discharged home Disposition: HOME, SELF-CARE Condition: Improved Scripts Amoxicillin* (AMOXIL*) 500 Mg Capsule 500 MG ORAL BID for 5 Days, #10 CAP Prov: Davis Wynne MD 06/18/19 Prednisone* (PREDNISONE*) 20 Mg Tablet 40 MG ORAL DAILY, #10 TAB Prov: Davis Wynne MD 06/18/19 Albuterol Sulfate* (ALBUTEROL SULFATE HHN*) 2.5 Mg/3 Ml Vial.neb 2.5 MG HHN Q4H PRN for Shortness of Breath, #25 VIAL Prov: Davis Wynne MD 06/18/19 Davis Wynne MD Jun 18, 2019 11:33
[2019-06-18 11:36] VITALS: BP 136/86
--- NOTE | 2019-06-18 11:55 | NUR ---
ED Nurse Note: IV extablished on left AC; intact, patent, asymptomatic. Blood collected, sent down to lab. RT at bedside for breathing treatment.
--- NOTE | 2019-06-18 11:56 | NUR ---
ED Nurse Note: xray at bedside
[2019-06-18] MEDS: Albuterol ud Inhalation HHN SCH ×3 (11:57→12:01)
[2019-06-18] MEDS: Ipratropium 0.02% Inh Soln 2.5ml UD HHN SCH ×3 (11:58→12:01)
[2019-06-18 12:10] LABS: BASOPHILS % (AUTO) 2.4 % (0.0-2.0); EOSINOPHILS % (AUTO) 0.7 % (0.0-3.0); HEMATOCRIT 42.4 % (42.0-52.0); HEMOGLOBIN 14.5 G/DL (14.2-18.0); LYMPHOCYTES % (AUTO) 19.5 % (20.0-45.0); MEAN CORPUSCULAR VOLUME 82 FL (80-99); NEUTROPHILS % (AUTO) 71.4 % (45.0-75.0); PLATELET COUNT 176 K/UL (150-450); RED BLOOD COUNT 5.19 M/UL (4.70-6.10); RED CELL DISTRIBUTION WIDTH 13.6 % (11.6-14.8)
--- NOTE | 2019-06-18 12:48 | Diagnostic Imaging Report ---
Indication: Shortness of Technique: One view of the chest Comparison: 03/13/2019 Findings: Atelectasis or scarring is seen at the left lung base. Lungs and pleural spaces are otherwise clear. The heart size is normal. Impression: Left basilar atelectasis. No acute process otherwise
[2019-06-18 13:19] VITALS: BP 121/73
--- NOTE | 2019-06-18 13:37 | NUR ---
ED Nurse Note: Blood sent down to lab for CMP redraw
[2019-06-18] MEDS ORDERED: ALBUTEROL2.5 MG/3 M HHN (13:55)
[2019-06-18] MEDS ORDERED: AMOXICILLIN500 MG ORAL (13:55)
[2019-06-18] MEDS ORDERED: PREDNISONE20 MG ORAL (13:55)
--- NOTE | 2019-06-18 14:10 | NUR ---
ED Nurse Note: lab called for lab re-draw
[2019-06-18 14:34] VITALS: BP 103/86
[2019-06-18 15:21] LABS: ANION GAP 6 mmol/L (5-15); BLOOD UREA NITROGEN 10 mg/dL (7-18); CALCIUM 9.6 MG/DL (8.5-10.1); CARBON DIOXIDE 34 MMOL/L (21-32); CHLORIDE 99 MMOL/L (98-107); CREATININE 0.8 MG/DL (0.55-1.30); POTASSIUM 4.2 MMOL/L (3.5-5.1); SODIUM 139 MMOL/L (136-145)
[2019-06-18 15:36] LABS: ALANINE AMINOTRANSFERASE 19 U/L (12-78); ALBUMIN 3.6 G/DL (3.4-5.0); ALBUMIN/GLOBULIN RATIO 0.9 (1.0-2.7); ALKALINE PHOSPHATASE 64 U/L (46-116); ASPARTATE AMINO TRANSFERASE 21 U/L (15-37); BILIRUBIN,TOTAL 0.5 MG/DL (0.2-1.0)
--- NOTE | 2019-06-18 15:45 | NUR ---
ER DISCHARGE NOTE: Patient is cleared to be discharged per ERMD, pt is aox4, on room air, with stable vital signs. pt was given dc and prescription instructions, pt was able to verbalize understanding, pt id band and iv site removed without complications. pt is able to ambulate with steady gait. pt took all belongings.
[2019-06-18 15:48] VITALS: BP 133/77
== END 2019-06-18 15:45 | disposition home or self-care (01) ==
LOC: EDBD 11:15 → EMR 11:34
DX: J44.9 Chronic obstructive pulmonary disease, unspecified (principal); I10 Essential (primary) hypertension; Z87.891 Personal history of nicotine dependence
CPT/HCPCS: 36415; 71045; 80053; 83880; 84484; 85025; 93005; 96374; 99284; J2930